=== PATIENT | female | born 1950 | race Caucasian/White ===

== ENCOUNTER 2020-12-08 09:38 | Outpatient (REF) | payer MEDICARE, SELFPAY ==
--- NOTE | 2020-12-08 10:42 | MHC.AU.HAS ---
Hearing Aid Evaluation Date of Visit: 12/08/20 Electronic Test Technician Used: Not Applicable Historical Information: Description of Hearing: Asymmetric mild to severe sensorineural hearing loss, left ear poorer than right. Significant history of left Stapedectomy and ear infections Current personal amplification information, if applicable: None Summary: Due to the long standing nature of the hearing loss and to facilitate communication, binaural hearing aids are recommended. Patient does not plan to stream her cell phone to the hearing aids. In order to reduce confusion of changing batteries, rechargeable style is recommended. Counseled about realistic expectations and the need to wear the aids every day, all day for amplification to be beneficial. Hearing Aid Prescription: Based on the individual?s shared listening needs, communication environments, dexterity, desire for connectivity, and personal preferences, the following prescription for amplification has been made: Right ear: Office Receptionist: Phonak Model: Audeo P 70-R Battery Size: Rechargeable Color: Graphite Delarosa Plaster Molder: #1 Medium Type of Dome: Open Left ear: Office Receptionist: Phonak Model: Audeo P 70-R Battery Size: Rechargeable Color: Graphite Delarosa Plaster Molder: #1 Medium Type of Dome: Open Plan of Care: Patient wishes to purchase hearing aids as prescribed Action Taken/Action Needed: Prior authorization to be requested Comments: When [facility] approval is received will order aids and call patient to schedule Hearing Aid Fitting Primary Diagnosis: H90.3 Bilateral Sensorineural Hearing Loss Signature: Provider: Precious Henry, DEENA-A
== END 2020-12-08 09:39 | disposition home or self-care (01) ==
LOC: HO.HAP 09:38
PROVIDERS: PCP Internal Medicine; Visit Provider Otolaryngology
DX: Z46.1 Encounter for fitting and adjustment of hearing aid (principal); H90.3 Sensorineural hearing loss, bilateral
CPT/HCPCS: 92591

== ENCOUNTER 2021-01-07 09:32 | Outpatient (REF) | payer MEDICARE, SELFPAY | END 2021-01-07 09:33 | disposition home or self-care (01) | LOC: HO.HAP 09:32 | PROVIDERS: Visit Provider Otolaryngology | DX: Z13.89 Encounter for screening for other disorder (principal) ==

== ENCOUNTER 2021-01-28 12:02 | Outpatient (REF) | payer MEDICARE, SELFPAY | END 2021-01-28 12:03 | disposition home or self-care (01) | LOC: HO.HAP 12:02 | PROVIDERS: Visit Provider Otolaryngology | DX: Z46.1 Encounter for fitting and adjustment of hearing aid (principal); H90.3 Sensorineural hearing loss, bilateral | CPT/HCPCS: V5011; V5020; V5160; V5261 ==

== ENCOUNTER 2024-03-26 10:51 | Outpatient (REF) | payer MEDICARE, SELFPAY ==
--- NOTE | ~2024-03-26 | XR_ITS ---
EXAMINATION: XR HIP, LEFT CLINICAL INFORMATION: Left hip pain. COMPARISON: None available. TECHNIQUE: AP and frog-leg lateral views of the left hip. FINDINGS: Prosthetic components of the left total hip arthroplasty appear appropriately positioned. A cerclage wire is present around the proximal femur in the subtrochanteric region. Thin rim of lucency near the acetabular component measures less than 2 mm and likely corresponds to fibrous incorporation. No fracture. Alignment is anatomic. 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 Bones are osteopenic. There is ossification at the soft tissues over the left greater trochanter. Atherosclerotic calcifications are present in the iliac and femoral arteries. Multiple surgical clips are present in the pelvis. XR/XR hip LT min 2V IMPRESSION: 1. No acute osseous findings at the left hip. Left hip arthroplasty appears well seated. 2. 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 Electronically signed by: Carlos Guaman MD 04/08/2024 11:46 PM EDT
== END 2024-03-26 10:52 | disposition home or self-care (01) ==
LOC: HO.HOSX 10:51
PROVIDERS: PCP Nurse Practitioner Family; Visit Provider Orthopaedic Surgery
DX: M25.552 Pain in left hip (principal); M25.551 Pain in right hip
CPT/HCPCS: 73502; 99212

== ENCOUNTER 2024-03-26 11:35 | Outpatient (AMB) | payer MEDICARE, SELFPAY ==
--- NOTE | 2024-03-26 11:36 | MHC.OFFVIS ---
Vital Signs 03/26/24 11:40 Height 5 ft Weight 130 lb BMI 25.4 Intake Visit Reasons: Bilateral hip pain Intake Note: Helena is a 73 year old female who presents with complaints of intermittent discomfort along the lateral aspects of both of her hips. The patient states that she aggravated her hip several months ago when she fell off of her counter top. The patient was trying to hang curtains at the time. She denies any locking or giving way. She did undergo left total hip replacement surgery several years ago. She denies any fevers or chills. She takes Tylenol which gives her fairly good relief. She is not able to take anti-inflammatory medicines because she is on Eliquis. Physical Exam Vital Signs: BMI result Body Mass Index 25.4 Const Other: Well-nourished well-developed very friendly female awake alert and oriented x3 in no acute distress Extrem Other: Bilateral lower extremity examination shows good capillary refill, no skin lesions noted, normal sensation light touch Left hip examination shows that the surgical incision is well healed, no erythema, mild tenderness over her bursa, minimal discomfort with range of motion Right hip examination shows tenderness over her bursa, no overlying skin lesions, minimal discomfort with range of motion Results Reviewed Results Reviewed: X-rays of the patient's right hip show mild diffuse joint space narrowing, no acute bony abnormalities X-rays of the patient's left hip show a total hip arthroplasty in good position with no signs of loosening, no acute bony abnormalities Assessment & Plan Assessment & Plan (1) Bilateral hip pain: Code(s): M25.551 - Pain in right hip; M25.552 - Pain in left hip (2) Left hip pain: Code(s): M25.552 - Pain in left hip Category: Medical (3) Right hip pain: Code(s): M25.551 - Pain in right hip Category: Medical Plan Ms. Sanchez presents with bilateral hip pains most likely due to greater trochanteric bursitis. I had a lengthy discussion with the patient regarding the treatment options. At this point the patient's symptoms are tolerable to her. We will hold off on a cortisone injection. She will contact me prior to her annual follow-up appointment should her symptoms worsen in any way. Feel free to call me at any time should questions regarding her orthopedic management arise. I spent 21 minutes in reviewing the patient's records and imaging studies, seeing the patient and documenting in the medical record. Orders: Orders XR hip LT min 2V Today M25.552 - Pain in left hip Coding Level of Care Code Est Pt Level 3 (64517) Complex EM visit Add On G2211 Diagnoses Bilateral hip pain M25.551; M25.552 Left hip pain M25.552 Right hip pain M25.551
[2024-03-26 11:40] VITALS: BMI 25.4
== END 2024-03-26 12:10 | disposition home or self-care (01) ==
PROVIDERS: PCP Internal Medicine; Visit Provider Orthopaedic Surgery
DX: M25.551 Pain in right hip (principal); M25.552 Pain in left hip
CPT/HCPCS: 99213; G2211

== ENCOUNTER 2024-10-21 10:33 | Outpatient (REF) | payer OTHER, SELFPAY ==
--- NOTE | ~2024-10-21 | XR_ITS ---
EXAMINATION: XR HIP, LEFT CLINICAL INFORMATION: M25.552 - Pain in left hip COMPARISON: 03/26/2024. TECHNIQUE: Two views of the left hip. FINDINGS: Prosthetic components of the left total hip arthroplasty appear appropriately positioned. A cerclage wire is present around the proximal femur in the subtrochanteric region. Stable thin rim of lucency abutting the superior acetabular component measures less than 2 mm and may correspond to fibrous incorporation. Mild stable heterotopic bone formation superolateral to the femoral neck prosthesis. No fracture. Alignment is anatomic. Minimal osteoarthritis in the right hip. Bones are osteopenic. Atherosclerotic calcifications are present in the iliac and femoral arteries. Multiple surgical clips are present in the pelvis. XR/XR hip LT min 2V IMPRESSION: No acute findings of the left hip/left hip prosthesis. Stable examination as discussed above. Electronically signed by: Carlos Ruff MD 10/21/2024 01:18 PM EDT
--- OUTSIDE RECORDS SUMMARY | 2024-10-22 12:03 | XMS_ITS | Encounter Summary ---
Author Organization [employer] Address [address] [facility] 7t [place] [address] Care Team Providers Care Junior Recruiter Name Role Phone Edwin Viki GORDON Primary Care Provider [phone] Constance MendezW Unavailable Unav ailable Encounter Details Date Type Department Care Team (Late st Contact Info) Description 04/09/2024 Orders Only [facility] [address] [place] [address] Viki Pineda FNP [address] [place] [address] Social History Tobacco Use Types Packs/Day Years [...] Visit [facility] MEDICAL [address] [place] [address] Myla Cisse, RESIDENTIAL INSTALLER-C [address] [place] [address] 10/29/2024 10:00 AM EDT Office Visit [facility] OPTOMETRY [address] [place] [address] Laura Napoles, OD [address] [place] [address] 11/03/2024 11:00 AM EDT Office Visit [facility] OPTOMETRY [address] [place] [address] Laura Napoles, OD [address] [place] [address] documented as of this encounter Procedures Procedure [...] documented as of this encounter Care Teams Junior Recruiter Relationship Specialty Start Date End Date Viki Pineda FNP [address] [place] [address] PCP - General Family Medicine 01/22/23 Constance Mendez LCSW Applications Consultant Behavioral Health 06/22/23 documented as of this encounter
--- OUTSIDE RECORDS SUMMARY | 2024-10-22 12:03 | XMS_ITS | Encounter Summary ---
Author Organization [employer] Address [address] [place] [address] 7t [place] [address] Care Team Providers Care Lead Software Development Engineer Name Role Phone Viki Pineda Primary Care Provider [phone] Constance Mendez LCSW Unavailable Unav ailable Reason for Visit * Reason Onset Date Comments eye issues 09/25/2024 Encounter Details Date Type Department Care Team (Late st Contact Info) Description 09/25/2024 Telephone [place] [facility] MEDICAL [address] [place] [address] Viki Pineda FNP [address] [place] [address] eye issues Social History Tobacco Use Types [...] Description 10/23/2024 11:00 AM EDT Office Visit [facility] MEDICAL [address] [place] [address] Myla Cisse, DINING ROOM SERVER-C [address] [place] [address] 10/29/2024 10:00 AM EDT Office Visit [facility] OPTOMETRY [address] [place] [address] Laura Napoles, OD [address] [place] [address] 11/03/2024 11:00 AM EDT Office Visit [facility] OPTOMETRY [address] [place] [address] Laura Napoles, OD [address] [place] [address] documented as of this encounter Visit Diagnoses Not on filedocumented in this encounter Additional Health Concerns Infection Onset Date Last Indicated Resolved Time 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
--- OUTSIDE RECORDS SUMMARY | 2024-10-22 12:03 | XMS_ITS | Encounter Summary ---
Author Organization [employer] Address [address] [facility] 7t [place] [address] Care Team Providers Care Streaming Media Specialist Name Role Phone Viki Pineda Primary Care Provider [phone] Constance MendezW Unavailable Unav ailable Encounter Details Date Type Department Care Team (Late st Contact Info) Description 05/29/2024 Orders Only [facility] [address] [place] [address] Viki Pineda FNP [address] [place] [address] Social History Tobacco Use Types Packs/Day Years [...] Description 10/23/2024 11:00 AM EDT Office Visit [facility] MEDICAL [address] [place] [address] Betito Myla, PAPER REWINDER-C [address] [place] [address] 10/29/2024 10:00 AM EDT Office Visit [facility] OPTOMETRY [address] [place] [address] Laura Napoles, OD [address] [place] [address] 11/03/2024 11:00 AM EDT Office Visit [facility] OPTOMETRY [address] [place] [address] Laura Napoles, OD [address] [place] [address] documented as of this encounter Procedures Procedure Name Priority Date/Time Associated Diagnosis Comments COMPREHENSIVE METABOLIC PANEL Routine 05/28/2024 9:[address] ABDOMEN PELVIS W CONTRAST Routine 05/28/2024 9:04 AM EST ECG 12-LEAD Routine 05/28/2024 9:03 AM EST documented in this encounter Results * Comprehensive Metabolic Panel (05/28/2024 9:05 AM EST) Blood Venous blood specimen / Unknown Viki Pineda [facility] LAB BLOOD ORDERABLES Final Resul t * CT Abdomen Pelvis w/ Contrast (05/28/2024 9:04 AM EST) Anatomical Region Laterality Modality Body, Pelvis, Abdomen Computed T omography Viki Pineda [facility] IMG CT PROCEDURES Final Result * ECG 12 lead (05/28/2024 9:03 AM EST) Viki Pineda [facility] ECG ORDERABLES Final Result documented in this encounter Visit Diagnoses Not on filedocumented in this encounter Additional Health Concerns Infection Onset Date Last Indicated Resolved Time MRSA 04/05/2024 04/09/2024 Assessment Noted Time PHQ-9 Depression Total Score: 1 01/31/20 24 2:51 PM EDT documented as of this encounter Care Teams Streaming Media Specialist Relationship Specialty Start Date End Date Viki Pineda FNP [address] [place] [address] PCP - General Family Medicine 01/22/23 Constance Mendez LCSW Head Inspector And Center Marker [facility] 06/22/23 documented as of this encounter
--- OUTSIDE RECORDS SUMMARY | 2024-10-22 12:03 | XMS_ITS | Clinical Summary ---
Author Organization [employer] Address [address] [place] [address] 7t [place] [address] Care Team Providers Care Field Superintendent Name Role Phone Viki Pineda RADIO DIRECTOR Primary Care Provider [phone] Constance Mendez BUILDING SERVICE WORKER Unavailable Unav ailable Allergies Active Allergy Reactions [...] 06/16/2022 Oxycodone-Acetaminophen 03/13/2023 Prednisone Other High 04/05/2024 [place] like my inside was going to crawl out of me Propoxyphene Anaphylaxis High 08/23/2021 Sulfamethizole High 08/23/2021 Other reaction(s): Hives/Urticaria Sulfamethoxazole-Trimethop rim 06/16/2022 Other reaction(s): paralysis Tamsulosin Low 06/16/2022 Other reaction(s): nose bleeds Tetanus Antitoxin 03/13/2019 Lrpltep-Xfsaoz-Huwud Pertussis Hives Low 06/16/2022 Other reaction(s): hives [...] tablet 3 03/07/20 24 025 Active Multiple Vitamins-Cargo Broker als (PreserVision AREDS 2+Multi Vit) capsule Take 1 capsule by mouth Once per day. 90 capsule 3 04/02/20 24 025 Active Bacillus Coagulans-Inul in (Probiotic) 1-250 BILLION-MG capsule Take 1 capsule by mouth Once per day. 90 capsule 3 04/29/20 24 025 Active mupirocin (Bactroban) 2 % ointment APPLY THIN LAYER IN NOSTRILS, BELLYBUTTON, AND BIOPSY SITE OF LEFT NONDENOMINATIONAL TWICE DAILY FOR 2 WEEKS 06/19/20 24 [...] Left message on machine asking her to burr picker and would retry her in a few minutes Retried to call pat and again just went straight to [employer]. Left another message encouraged her to call the [facility] to reschedule her missed telehealth [...] - pt will call ENT office in [place] and let us know if she needs [...] (06/26/2024): Flat, scabbed, flaky lesion to L taoist without erythema. Skin surrounding lesion is dry [...] course. Denies vision concerns. Lesion on L taoist - some green/yellow discharge. No warmth/erythema. Pt [...] (03/06/2024): Zoom therapy with Tyler here at [facility]. Rx for Klonopin - no maintenance medication. 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 Ms. Sanchez is very [...] 06/16/2022 Overview (06/26/2023): Engaged with vascular. On [facility]. Had recent vein scan, pt reports L [...] back pain and shrinking . Seen by [facility] - no surgery needed but offered [...] Type Department Care Team Description 10/14/[address] [address] Viki Pineda FNP Prior Authorization (clonazepam) 10/13/[address] [address] Tika Esparza MD Anxiety with depression 10/13/[address] [address] Viki Pineda FNP Anxiety with depression 09/25/2024 11:30 AM EDT Office Visit [facility] OPTOMETRY [address] [place] [address] Laura Napoles, LUCERO 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 degeneration of both eyes (Primary Dx); Dry eye syndrome of both eyes; Screening for diabetes mellitus 09/25/[address] [address] Viki Pineda FNP eye issues 09/15/[address] [address] Tika Esparza MD Anxiety with depression 09/15/[address] [address] Viki Pineda FNP Anxiety with depression 08/20/[address] [address] Viki Pineda FNP Med Refill 08/18/[address] [address] Viki Pineda FNP Anxiety with depression 08/08/2024 11:40 AM EST Office Visit [address] [address] Viki Pineda FNP Acute otitis externa of left ear, unspecified type (Primary Dx) 08/05/2024 [facility] [address] [place] [address] Viki Pineda, RADIO DIRECTOR Rash (Primary Dx) 07/24/2024 Telephone [place] [facility] MED[facility] [address] [place] [address] Georgia Diop, RADIO DIRECTOR Results from Last 3 Months Immunizations Name Administration Dates Next Due Hep B, adult 08/26/2007,04/10/2007,03/04/2007 Influenza, Unspecified 06/03/2013,2011,04/17/2011,2009 Pfizer Covid-19 Vaccine 12+ 08/03/2021, 1,2020 TD (adult), 2 Lf tetanus tox oid, [...] [facility] MED[facility] [address] [place] [address] Myla Cisse, EVAN-C [address] [place] [address] 10/29/2024 10:00 AM EDT Office Visit [facility] OPTOMETRY [address] [place] [address] Laura Napoles, OD [address] [place] [address] 11/03/2024 11:00 AM EDT Office Visit [facility] OPTOMETRY [address] [place] [address] Laura Napoles, OD [address] [place] [address] Health Maintenance Due Date Last Done Comments [...] history exists Depression Screening 04/02/2025 04/02/2024, 01/31/20 SDOH Screening 06/26/2025 06/26/2024 Tobacco Screening 09/25/2025 [...] nonexudative age-related macular degeneration of both eyes LIPID PANEL, STANDARD Routine 03/04/2024 8:46 AM EDT HM MAMMOGRAPHY Routine 10/27/2022 COLONOSCOPY Routine 12/26/2012 12:00 AM EDT from Last 3 Months or Most Recently Relevant to Health Maintenance Results * POCT glycosylated hemoglobin (Hgb A1c) (09/25/2024 4:10 PM EDT) Hemoglobin A1C 6.0 4.0 - 6.0 % Blood Capillary blood specimen / Unknown 09/25/2024 4:10 PM EDT Laura Napoles OD POINT OF CARE TEST ENTER/EDIT OR DERABLES Final Result * OCT, Retina - OU - Both Eyes (09/25/2024) Impressions Laura Napoles, OD - 09/25/2024 Right eye (OD): thin retinal pigment epithelium (RPE)/drusen, central lamellar/cystic changes stable, [-]CNVM Left eye (OS): thin retinal pigment epithelium (RPE)/drusen, [-]CNVM Laura Napoles OD OPHTH TOMOGRAPHY Final Result * (ABNORMAL) Lipid Panel, Standard [...] AM EDT Performed at: ??01 - [facility] [address] ??[id number] Feed Mixer Helper: Malu Gaspar MD, Phone: ??[phone] Majo Mccall NP LAB BLOOD ORDERABLES Final Resul t [facility] 1 * Hm Mammography (10/27/2022) Anatomical Region Laterality Modality Other Historical Provider HEALTH MAINTENANCE Final Result * COLONSCOPY (12/26/2012 12:00 AM EDT) Anatomical Region Laterality Modality Endoscopy 12/26/2012 Narrative 12/26/2012 12:00 AM EDT Refer to Fovea for result details Legacy Procedure: COLONSCOPY Procedure Note Provider, MD Jorge - 11/09/2022 Refer to Fovea for result details Legacy Procedure: COLONSCOPY Historical Provider ENDOSCOPY PROCEDURE ORDER TIO Final Result from Last 3 Months or Most Recently Relevant to Health Maintenance Additional Health Concerns Infection Onset Date Last Indicated MRSA 04/05/2024 04/09/2024 Insurance [facility] [employer] OPTIONS (HMO D-SNP) Advance Directives Documents on File Type Date Recorded Patient Manager Garden Expl anation HealthCare Proxy 08/13/2023 2:41 PM HCP MOLST form 08/13/2023 2:40 PM MOLST Care Teams Field Superintendent Relationship Specialty Start Date End Date Viki Pineda FNP [address] [place] [address] PCP - General Family Medicine 01/22/23 Constance Mendez LCSW Quality Assurance Inspector Behavioral Health 06/22/23
--- OUTSIDE RECORDS SUMMARY | 2024-10-22 12:03 | XMS_ITS | Encounter Summary ---
Author Organization [employer] Address 75 [facility] 7t [place] [address] Care Team Providers Care Chef French Name Role Phone Viki Pineda Primary Care Provider [phone] Constacne MendezW Unavailable Unav ailable Encounter Details Date Type Department Care Team (Late st Contact Info) Description 03/07/2024 Orders Only [facility] [address] [place] [address] Viki Pineda FNP [address] [place] [address] Social History Tobacco Use Types Packs/Day Years [...] Description 10/23/2024 11:00 AM EDT Office Visit [facility] MEDICAL [address] [place] [address] Myla Cisse FNP-C [address] [place] [address] 10/29/2024 10:00 AM EDT Office Visit [facility] OPTOMETRY [address] [place] [address] Laura Napoles, OD [address] [place] [address] 11/03/2024 11:00 AM EDT Office Visit [facility] OPTOMETRY [address] [place] [address] Laura Napoles, OD [address] [place] [address] documented as of this encounter Procedures Procedure [...] documented as of this encounter Care Teams Chef French Relationship Specialty Start Date End Date Viki Pineda FNP [address] [place] [address] PCP - General Family Medicine 01/22/23 Constance Mendez LCSW Employee Training Specialist Behavioral Health 06/22/23 documented as of this encounter
--- OUTSIDE RECORDS SUMMARY | 2024-10-22 12:03 | XMS_ITS | Encounter Summary ---
Author Organization [employer] Address [address] [place] [address] 7t [place] [address] Care Team Providers Care Rehabilitation Attendant Name Role Phone Viki Pineda Primary Care Provider [phone] Constance Mendez LCSW Unavailable Unav ailable Reason for Visit * Reason Comments Med Refill Encounter Details Date Type Department Care Team (Late st Contact Info) Description 02/12/2024 Refill [facility] MED[facility] [address] [place] [address] Viki Pineda FNP [address] [place] [address] Anxiety with depression Social History Tobacco Use [...] Description 10/23/2024 11:00 AM EDT Office Visit [address] [address] Myla Cisse FNP-C [address] [place] [address] 10/29/2024 10:00 AM EDT Office Visit [facility] OPTOMETRY [address] [place] [address] Laura Napoles, OD [address] [place] [address] 11/03/2024 11:00 AM EDT Office Visit [facility] OPTOMETRY [address] [place] [address] Laura Napoles, OD [address] [place] [address] documented as of this encounter Visit Diagnoses Diagnosis Anxiety with depression documented in this encounter Additional Health Concerns Infection Onset Date Last Indicated Resolved Time MRSA 04/05/2024 04/09/2024 Assessment Noted Time PHQ-9 Depression Total Score: 1 01/31/20 24 2:51 PM EDT documented as of this encounter Care Teams Rehabilitation Attendant Relationship Specialty Start Date End Date Viki Pineda FNP [address] [place] [address] PCP - General Family Medicine 01/22/23 Constance Mendez LCSW Genetic Technologist Behavioral Health 06/22/23 documented as of this encounter
--- OUTSIDE RECORDS SUMMARY | 2024-10-22 12:03 | XMS_ITS | Encounter Summary ---
Author Organization [employer] Address [address] [place] [address] 7t [place] [address] Care Team Providers Care Log Rider Name Role Phone Viki Pineda Primary Care Provider [phone] Constance Mendez LCSW Unavailable Unav ailable Reason for Visit * Reason Comments Med Refill Encounter Details Date Type Department Care Team (Late st Contact Info) Description 10/13/2024 Refill [facility] MEDICAL [address] [place] [address] Tika Esparza MD [address] [place] [address] Anxiety with depression Social History Tobacco Use [...] Description 10/23/2024 11:00 AM EDT Office Visit [facility] MEDICAL [address] [place] [address] Myla Cisse FNP-C [address] [place] [address] 10/29/2024 10:00 AM EDT Office Visit [facility] OPTOMETRY [address] [place] [address] Laura Napoles, OD [address] [place] [address] 11/03/2024 11:00 AM EDT Office Visit [facility] OPTOMETRY [address] [place] [address] Laura Napoles, OD [address] [place] [address] documented as of this encounter Visit Diagnoses Diagnosis Anxiety with depression documented in this encounter Additional Health Concerns Infection Onset Date Last Indicated Resolved Time MRSA 04/05/2024 04/09/2024 Assessment Noted Time PHQ-9 Depression Total Score: 1 01/31/20 24 2:51 PM EDT documented as of this encounter Care Teams Log Rider Relationship Specialty Start Date End Date Viki Pineda FNP [address] [place] [address] PCP - General Family Medicine 01/22/23 Constance Mendez LCSW [facility] 06/22/23 documented as of this encounter
--- OUTSIDE RECORDS SUMMARY | 2024-10-22 12:03 | XMS_ITS | Encounter Summary ---
Author Organization [employer] Address [address] [place] [address] 7 [place] [address] Care Team Providers Care Senior Finance Manager Name Role Phone Suzi Simmons VIDEO RECORDER MECHANIC Unavailable Unavailable Viki Pineda Primary Care Provider [phone] Constance Mendez LCSW Unavailable Unav ailable Reason for Visit * Reason Comments Med Refill Encounter Details Date Type Department Care Team (Late st Contact Info) Description 02/21/20[address] [facility] MEDICAL [address] [place] [address] Tika Esparza MD [address] [place] [address] Peripheral vascular disease, unspecified (CMS/HCC) Social History [...] Description 10/23/2024 11:00 AM EDT Office Visit [facility] MEDICAL [address] [place] [address] Myla Cisse FNP-C [address] [place] [address] 10/29/2024 10:00 AM EDT Office Visit [facility] OPTOMETRY [address] [place] [address] Laura Napoles, OD [address] [place] [address] 11/03/2024 11:00 AM EDT Office Visit [facility] OPTOMETRY [address] [place] [address] Laura Napoles, OD [address] [place] [address] documented as of this encounter Visit Diagnoses Diagnosis Peripheral vascular disease, unspecified (CMS/HCC) Peripheral vascular disease, unspecified documented in this encounter Additional Health Concerns Infection Onset Date Last Indicated Resolved Time MRSA 04/05/2024 04/09/2024 Assessment Noted Time PHQ-9 Depression Total Score: 5 02/17/20 23 7:33 AM EDT documented as of this encounter Care Teams Senior Finance Manager Relationship Specialty Start Date End Date Viki Pineda FNP [address] [place] [address] PCP - General Family Medicine 01/22/23 Suzi Simmons LICSW Head Kiln Operator Behavioral Health 06/23/22 07/22/23 Constance Mendez LCSW Head Kiln Operator Behavioral Health 06/22/23 documented as of this encounter
--- OUTSIDE RECORDS SUMMARY | 2024-10-22 12:03 | XMS_ITS | Encounter Summary ---
Author Organization [employer] Address [address] [place] [address] 7t [place] [address] Care Team Providers Care Recreation Engineer Name Role Phone Suzi FUEL CELL BINDER Unavailable Unavailable Tika Esparza MD Primary Care Provider [phone] Viki Pineda Primary Care Provider [phone] Constance Mendez LCSW Unavailable Unav ailable Encounter Details Date Type Department Care Team (Late st Contact Info) Description 11/28/2022 Orders Only [facility] MEDICAL [address] [place] [address] Provider, MD Jorge Social History Tobacco Use [...] 10/23/2024 11:00 AM EDT Office Visit [facility] MEDICAL [address] [place] [address] Myla Cisse FNP-Alonzo [address] [place] [address] 10/29/2024 10:00 AM EDT Office Visit [facility] OPTOMETRY [address] [place] [address] Laura Napoles, OD [address] [place] [address] 11/03/2024 11:00 AM EDT Office Visit [facility] OPTOMETRY [address] [place] [address] Laura Napoles, OD [address] [place] [address] documented as of this encounter Procedures Procedure [...] documented as of this encounter Care Teams Recreation Engineer Relationship Specialty Start Date End Date Tika Esparza MD [address] [place] [address] PCP - General Internal Medicine 08/15/22 01/21/23 Viki Pineda FNP [address] [place] [address] PCP - General Family Medicine 01/22/23 Suzi Simmons LICSW [facility] 06/23/22 07/22/23 Constance Mendez LCSW [facility] 06/22/23 documented as of this encounter
--- OUTSIDE RECORDS SUMMARY | 2024-10-22 12:03 | XMS_ITS | Data Portability ---
Author Organization [place] [facility] [place] Address [address] [facility] [address] [place] [address] Care Team Providers Care Cosmetic Chemist Name Role Phone EL NEWELL Referring Provider [phone] EL NEWELL Primary Care Provider Assessment Encounter Date Assessment Date Assessment LastModified by Organization Details LastModified Time 08/09/2023 08/09/2023 72-year-old female following up on her left total hip arthroplasty performed by Dr. Navarro on 06/03/2021. Clinically her hip is doing well she does have some mild iliotibial band tenderness we talked about therapy as well as a home stretching exercise program which she was amenable to the program at home she does admit she has not been stretching at all. She has a tonsillitis and therefore does not need antibiotic prophylaxis and she has been on the 2 years from her surgery. Will do a 5-year recall should her symptoms not improved she will call my office and we will schedule her to see a provider. I did review her radiographs with her in detail she agrees with above-noted plan. Patient was seen and evaluated by Cosme Gutierrez PA-C in indirect conjuction with Documenting Provider: Brady Sabillon MD . He/She agrees with history, physical examination, tests/diagnostic imaging, and treatment plan. Additional treatment plan discussed with the patient (only initiated if in boldface font) otherwise not applicable. Treatment may include the following; - Provider focused nonsteroidal anti-inflammator y regimen (discussed were the pros, cons, benefits and risks as well as any black box warnings) in patients over 60 years old they should be very cautious in taking these medications due to potential decreased kidney function and or elevated blood pressure. - Analgesic pain medication for pain suppression (discussed were the pros, cons, benefits and risks as well as any black box warnings) - The use of topical pain relieving medication were discussed - The use of ice to decrease inflammation and pain - The use of assistive ambulatory devices for ambulation and fall prevention - Formal specific guided physical therapy program I reviewed my findings at length with the patient today. ? ? ?We discussed the nature and etiology of this problem along with current treatment options. We discussed the expected course and outcomes and what to expect. We also discussed risks and benefits. ? ? ? All of their questions were answered today, and there was exhibited understanding and comprehension of all that was discussed. Time Spent: 10 minutes were spent reviewing previous imaging and charting. ? ? ?10 minutes were spent obtaining patient history. ? ? ?5 minutes were spent on physical exam. ? ? ?5? ? ?minutes were spent explaining diagnosis and assessment. Today's documentation was made using voice recognition software. This note may contain grammatical errors secondary to the software. Not available 08/09/2023 14:06:50 Plan of Treatment Reminders Order Date Submit Date Provider Last Modified By Organization Details Last Modified Time Details Appointments None record ed. Lab None record ed. Referral None record ed. Procedures None record ed. Surgeries None record ed. Imaging XR, hip, unilat eral, 2 or 3 view 024 08/09/19 24 [email or web address] [facility], [address], [address], [place], [address], 4 14:07:39 Medication Orders None record ed. Patient TargetsNo targets recorded. Patient Instructions Encounter Date Encounter Id Patient Instructions Last Modified By Organization Details Last Modified Time 08/09/2023 [id number] Well-seated well-positioned left total hip arthroplasty without sign of loosening. No acute bony abnormality. Not available 08/09/2023 14:07:06 Reason for Referral None Reported. Medical Equipment None Reported. Allergies No known drug allergies Medications Name Sig Start Date Stop Date Status Note LastModified by Organization Details LastModified Time clonazepam 0.5 mg tablet TAKE 1 TABLET BY MOUTH 3 TIMES A DAY 28 DAYS active Not Available Not Available No t Available betamethason e, augmented 0.05 % topical cream PLEASE SEE ATTACHED FOR DETAILED DIRECTIONS active Not Available Not Available N ot Available amlodipine 5 mg tablet TAKE 1 TABLET BY MOUTH EVERY DAY IN THE MORNING active Not Available Not Available No t Available TobraDex 0.3 %-0.1 % eye ointment APPLY 1/2 INCH RIBBON TO BOTH EYES TWO TIMES A DAY FOR UP TO 10 DAYS active Not Available Not Available No t Available lisinopril 10 mg tablet TAKE 1 TABLET BY MOUTH EVERY DAY IN THE MORNING active Not Available Not Available No t Available gabapentin 300 mg capsule TAKE 1 CAPSULE BY MOUTH EVERYDAY AT BEDTIME active Not Available Not Available No t Available gabapentin 100 mg capsule PLEASE SEE ATTACHED FOR DETAILED DIRECTIONS active Not Available Not Available N ot Available ketoconazole 2 % topical cream APPLY TO AFFECTED AREA TWICE A DAY active Not Available Not Available No t Available loratadine 10 mg tablet TAKE 1 TABLET BY MOUTH EVERY DAY active Not Available Not Available No t Available nicotine 7 mg/24 hr daily transdermal patch APPLY 1 PATCH TO SKIN EVERY DAY active Not Available Not Available [...] Not Available Not Available No t Available Salonpas (lidocaine) 4 % topical patch PLEASE SEE ATTACHED FOR DETAILED DIRECTIONS active Not Available Not Available N ot Available Vitals Date Recorded Body height Body mass index (BMI) Body weight Provider Name and Address Organization Details Last Updated DateTime 08/09/2023 157.48 cm 23.6 kg/m2 67588.42 g [place] [facility] 08/09/2023 14:09:43 Social History Question Answer Notes LastModified by Organizat ion Details LastModified Time Tobacco Smoking Status Former Smoker Poly Ambriz mat[place], [place] - [facility] 08/09/2023 14:11:41 What Is Your Level Of Alcohol Consumption? None Information not available 08/09/2023 When Did You Quit Smoking? 1-5yearssin erika daly Information not available 08/09/2023 Do You Use Any Illicit Or Recreational Drugs? No Information not available 08/09/2023 Do You Or Have You Ever Used Any Other Forms Of Tobacco Or Nicotine? No Information not available 08/09/2023 Sex: Unknown Functional Status None recorded. Mental Status None recorded. Family History Relationship Description Onset Age of this Age Resolved Age Notes LastModified by Organization Details LastModified Time Mother Arthritis Not available 08/09/2023 14:10:12 Mother Heart disease [email or web address] Not available 2023 14:10:49 Mother Hypertensive disorder [email or web address] Not available 2023 14:11:06 Father Family history of malignant neoplasm [email or web address] Not available 2023 14:10:29 Father Heart disease [email or web address] Not available 2023 14:10:49 Father Hypertensive disorder [email or web address] Not available 2023 14:11:06 Brother Family history of malignant neoplasm Not available 2023 14:10:29 Sister Heart disease [email or web address] Not available 2023 14:10:49 Medical History Condition Response Bleeding Disorder Y Thyroid Problems Y Heart Disease Y Hypertension Y Gynecological HistoryNo gynecological history recorded. Obstetrics History GPAL:G 0 P 0 0 0 0 Past Encounters Encounter ID Performer Location Encounter Start Date Encounter Closed Date Diagnosis/Indication Diagnosis SNOMED-CT Code Diagnosis ICD10 Code Diagnosis Note [id number] MD JAIME Montero [address] [id number] 08/09/2023 13:12:20 08/09/2023 13:50:23 History of total replacement of left hip joint 7410939357 445590 Z96.642 Health Concerns Section Related Observation LastModified by Organization Detai ls LastModified Time None Recorded Concern Status LastModified by Organization Details LastModified Time None Recorded Advance Directives Directive None Recorded Payers Encounter Date Sequence Insurance Name Policy Number Policy Graham Covered Member ID Graham Member ID Guarantor Name 08/09/2023 1 [facility] - DOS ON OR AFTER 2022 - MEDICARE ADVANTAGE [place] (MEDICARE REPLACEMENT/ADV ANTAGE - PPO) December Daniel [id number] December Notes Date Note Type Note Provider Name and Address Organization Details Recorded Time 08/09/2023 text/html 72-year-old fema le following up on her left total hip arthroplasty performed by Dr. Navarro on 06/03/2021. She is denying any groin pain she states she has outside pain on the outside of her left leg that gets worse with walking. She does have vascular disease for which she sees a vascular specialist here at [facility]. She is currently being worked up for her back by her primary care. X-rays performed at today's visit reveals well-seated well-positioned left total hip arthroplasty without sign of loosening. No acute bony abnormality. COSME GUTIERREZ PA-C [address] [place] [address], [place], [address], [place] [facility] 08/09/2023 14:07:33 OBGyn Episode No OBEpisode recorded.
--- OUTSIDE RECORDS SUMMARY | 2024-10-22 12:03 | XMS_ITS | Clinical Summary ---
Author Organization [facility] Address [address] [place] [address] Care Team Providers Care Materials Management Clerk Name Role Phone Tika Esparza MD Primary Care Provider [phone] Allergies Active Allergy Reactions Criticality Noted Date [...] age to complete this topic Care Teams Materials Management Clerk Relationship Specialty Start Date End Date Tika Esparza MD [address] [place] [address] PCP - General Internal Medicine 03/13/19
--- OUTSIDE RECORDS SUMMARY | 2024-10-22 12:03 | XMS_ITS | Encounter Summary ---
Author Organization [employer] Address [address] [facility] 7t [place] [address] Care Team Providers Care Solidworks Mechanical Designer Name Role Phone Viki Pineda FERN GATHERER Primary Care Provider [phone] Constance Mendez LCSW Unavailable Unav ailable Reason for Visit * Reason Onset Date Comments prednisone, starting new med 02/14/2024 Encounter Details Date Type Department Care Team (Late st Contact Info) Description 02/14/2024 Telephone [facility] [facility] MED[facility] [address] [place] [address] Anneliese Tapia RN prednisone, starting new med [...] the past 12 months, has t he [employer], gas, oil or water [employer] threatened to shut off services in your [...] Description 10/23/2024 11:00 AM EDT Office Visit [facility] MEDICAL [address] [place] [address] Myla Cisse FNP-C [address] [place] [address] 10/29/2024 10:00 AM EDT Office Visit [facility] OPTOMETRY [address] [place] [address] Laura Napoles, OD [address] [place] [address] 11/03/2024 11:00 AM EDT Office Visit [facility] OPTOMETRY [address] [place] [address] Laura Napoles, OD [address] [place] [address] documented as of this encounter Visit Diagnoses Not on filedocumented in this encounter Additional Health Concerns Infection Onset Date Last Indicated Resolved Time 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
--- OUTSIDE RECORDS SUMMARY | 2024-10-22 12:04 | XMS_ITS | Encounter Summary ---
Author Organization [employer] Address [address] [place] [address] 7t [place] [address] Care Team Providers Care Emergency Dispatch Operator Name Role Phone Edwin Viki GORDON Primary Care Provider [phone] Constance MendezW Unavailable Unav ailable Encounter Details Date Type Department Care Team (Late st Contact Info) Description 12/31/2023 Orders Only [facility] [address] [place] [address] Viki Pineda FNP [address] [place] [address] Social History Tobacco Use Types Packs/Day Years [...] Description 10/23/2024 11:00 AM EDT Office Visit [place] [facility] MEDICAL [address] [place] [address] Myla Cisse FNP-C [address] [place] [address] 10/29/2024 10:00 AM EDT Office Visit [facility] OPTOMETRY [address] [place] [address] Laura Napoles, OD [address] [place] [address] 11/03/2024 11:00 AM EDT Office Visit [facility] OPTOMETRY [address] [place] [address] Laura Napoles, OD [address] [place] [address] documented as of this encounter Procedures Procedure [...] Spine, C-spine Computed Tomogra phy Viki Pineda [facility] CT PROCEDURES Final Result * CT HEAD WO CONTRAST (12/29/2023 11:00 AM EDT) Anatomical Region Laterality Modality Computed Tomogra phy Viki Pineda [facility] CT PROCEDURES Final Result * XR Toes 2+ Left (12/29/2023 10:59 AM EDT) Anatomical Region Laterality Modality Lower Extremities, Toes Left Radiogra phic Imaging Viki Pineda [facility] XR PROCEDURES Final Result documented in this encounter Visit Diagnoses Not on filedocumented in this encounter Additional Health Concerns Infection Onset Date Last Indicated Resolved Time 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
--- OUTSIDE RECORDS SUMMARY | 2024-10-22 12:04 | XMS_ITS | Clinical Summary ---
Author Organization [address] [place] [address] Address [address] [place] [address] Phone Care Team Providers Care Research Assoc Name Role Phone Tika Esparza MD Primary Care Provider [phone] Allergies Active Allergy Reactions Criticality Noted Date [...] Site/Laterality Comments OTHER SURGICAL HISTORY 08/16/2021 PROCEDURE: IL TRLML BALO ANGIOP OPEN/PERQ W/IMG S&I 1ST VEIN OTHER SURGICAL HISTORY 08/16/2021 PROCEDURE: IL TRLML BALO ANGIOP OPEN/PERQ W/IMG S&I ADDL VEIN; COMMENT: x2 OTHER SURGICAL HISTORY 08/16/2021 PROCEDURE: IL SEC PRQ TRLUML THRMBC N-CORONARY N-INTRACRANIAL OTHER SURGICAL HISTORY 08/16/2021 PROCEDURE: IL INTRAVASCULAR US NONCORONARY RS&I INTIAL VESSEL OTHER SURGICAL HISTORY 08/16/2021 PROCEDURE: IL INTRAVASCULAR US NONCORONARY RS&I ADDL VESSEL; COMMENT: x4 OTHER SURGICAL HISTORY 08/16/2021 PROCEDURE: ULTRASOUND GUIDANCE FOR VASCULAR AC OTHER SURGICAL HISTORY 05/09/2022 PROCEDURE: IL NJX PX XTR VNGRPH W/INTRO NDL/INTRACATH OTHER [...] PM EST Office Visit [facility] [place] [address] [place] [address] Sanam Urena PA [address] [facility] [address] [place] [address] Health Maintenance Due Date Last Done Comments [...] patient's age to complete this topic Insurance [facility] MEDICARE Member Subscriber Plan / Payer (Ef fective 2020-Present) Name:Helena Sanchez Relation to Subscriber:Self Name:Helena Sanchez Payer ID:[id number] Group ID:[id number] Type:Not on file Address: [address] [place] [phone] Advance Directives Documents on File Type Date Recorded Patient Supplier Quality Specialist Expl anation Health Care Decision (hx) 06/03/2021 [...] (hx) 06/03/2021 AD XAVIER DIRECTIVE Care Teams Research Assoc Relationship Specialty Start Date End Date Tika Esparza MD [address] [place] [address] PCP - General Internal Medicine 06/16/21
--- OUTSIDE RECORDS SUMMARY | 2024-10-22 12:04 | XMS_ITS | Encounter Summary ---
Author Organization [employer] Address [address] [place] [address] 7t [place] [address] Care Team Providers Care Rotary Driller Helper Name Role Phone Viki Pineda Primary Care Provider [phone] Constance Mendez LCSW Unavailable Unav ailable Reason for Visit * Reason Onset Date Comments Med Refill 11/27/2023 Encounter Details Date Type Department Care Team (Late st Contact Info) Description 11/27/2023 Telephone [place] [facility] MEDICAL [address] [place] [address] Viki Pineda FNP [address] [place] [address] Med Refill Social History Tobacco Use Types [...] med refill gabapentin (Neurontin) 300 MG capsule [[id number]] clonazePAM (KlonoPIN) 0.5 MG tablet [[id number]] Pharmacy [facility]/pharmacy #[id number] [facility] [id number] documented in this encounter Plan of Treatment Upcoming Encounters Date Type Department Care Team (Late st Contact Info) Description 10/23/2024 11:00 AM EDT Office Visit [facility] MEDICAL [address] [place] [address] Myla Cisse FNP-C [address] [place] [address] 10/29/2024 10:00 AM EDT Office Visit [facility] OPTOMETRY [address] [place] [address] Laura Napoles, OD [address] [place] [address] 11/03/2024 11:00 AM EDT Office Visit [facility] OPTOMETRY [address] [place] [address] Laura Napoles, OD [address] [place] [address] documented as of this encounter Visit Diagnoses Not on filedocumented in this encounter Additional Health Concerns Infection Onset Date Last Indicated Resolved Time 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
== END 2024-10-21 10:34 | disposition home or self-care (01) ==
LOC: HO.HOSX 10:33
PROVIDERS: Visit Provider Orthopaedic Surgery
DX: M25.552 Pain in left hip (principal); M54.50 Low back pain, unspecified; M79.605 Pain in left leg
CPT/HCPCS: 73502; 99212

== ENCOUNTER 2024-10-21 11:05 | Outpatient (AMB) | payer MEDICARE, SELFPAY ==
--- NOTE | 2024-10-21 11:14 | A.OFFVIS_ITS ---
Vital Signs 10/21/24 11:16 Height 5 ft Weight 130 lb BMI 25.4 Intake Visit Reasons: OV-Left Hip pain, Low back pain radiating to left leg Intake Note: Helena is a 73 year old female who presents with complaints of progressively worsening low back pain which radiates down her left leg as well as intermittent discomfort along the lateral aspect of her left hip. She did undergo left total hip replacement surgery several years ago. She denies any fevers or chills. The patient states that her back pain has gotten worse over the last few years in spite of continued non operative treatments. The patient states that she did have an MRI of her lumbar spine several years ago. She was seen by a back specialist and she was told that although she has significant lumbar spine pathology she was not a good surgical candidate at that time. The patient has tried Tylenol which gives her minimal relief. She is not able to take anti- inflammatory medicines because she is on Eliquis. Allergies No Known Allergies Allergy (Verified 10/21/24 11:17) Medication List - Last Reconciled 10/21/24 by Jw Navarro MD apixaban (Eliquis) 5 mg PO BID clonazepam mg PO loratadine 10 mg PO DAILY az-vmr-DY-vit L-wjqvue-wxbosfr 200 mcg-15 mcg- 5 mg-1 mg (PreserVision AREDS 2 Plus Multivit) 1 cap PO DAILY Physical Exam Vital Signs: BMI result Body Mass Index 25.4 Const Other: Well-nourished well-developed very friendly female awake alert and oriented x3 in no acute distress Back/Spine/Pelvis Other: Low back examination shows left-sided paraspinal muscle tenderness, pain with range of motion, positive straight leg raise test on the left at 70 degrees, 4/5 strength with testing of her left hip flexors and knee extensors when compared to 5/5 strength on her right side Extrem Other: Left hip examination shows that the surgical incision is well healed, no erythema, minimal discomfort with range of motion, mild tenderness over her bursa Results Reviewed Results Reviewed: X-rays of the patient's left hip show a total hip arthroplasty in good position with no signs of loosening, a small avulsion fracture of the tip of the greater trochanter which is unchanged when compared to prior x-rays Assessment & Plan Assessment & Plan (1) Low back pain radiating to left leg: Code(s): M54.50 - Low back pain, unspecified; M79.605 - Pain in left leg Category: Medical Plan Ms. Sanchez presents with low back pain which radiates into her left leg as well as associated left leg weakness possibly due to lumbar stenosis or a disc herniation. Thus, I will send the patient for an MRI of her lumbar spine for further evaluation. I will see her back once the MRI is completed to discuss the findings. She will call me prior to that time should her symptoms worsen in any way. Feel free to call me at any time should questions regarding her orthopedic management arise. I spent 22 minutes in reviewing the patient's records and imaging studies, seeing the patient and documenting in the medical record. Orders: Orders MR lumbar spine wo con Today M54.50 - Low back pain, unspecified, M79.605 - Pain in left leg XR hip LT min 2V Today M25.552 - Pain in left hip Coding Level of Care Code Est Pt Level 3 (34876) Complex EM visit Add On G2211 Diagnoses Low back pain radiating to left leg M54.50; M79.605
[2024-10-21 11:16] VITALS: BMI 25.4
--- OUTSIDE RECORDS SUMMARY | 2024-10-21 13:31 | XMS_ITS | Encounter Summary ---
Author Organization [employer] Address [address] [place] [address] Care Team Providers Care Crystallographer Name Role Phone Viki Pineda CEREAL MILLER Primary Care Provider [phone] Constance Mendez LCSW Unavailable Unav ailable Reason for Visit * Reason Onset Date Comments prednisone, starting new med 02/14/2024 Encounter Details Date Type Department Care Team (Late st Contact Info) Description 02/14/2024 Telephone [facility] [address] [place] [address] Anneliese Tapia RN prednisone, starting new med Social History Tobacco Use Types Packs/Day Years Used Date Smoking Tobacco: Former Cigarettes 2 60 1 961 - 2020 Passive Smoke Exposure: Past Smokeless Tobacco: Never Alcohol Use Standard Drinks/Week Comments Never 0 (1 standard drink = 0.6 oz pur e alcohol) Alcohol Answer Date Recorded How often do you have a drink containing alcohol ? 0 09/26/2023 How many drinks containing a lcohol do you have on a typical day when you are drinking? 0 09/26/2023 How often do you have six or more drinks on one occasion? 0 09/26/2023 Depression Answer Date Recorded Patient Health Questionnaire-9 Score 1 01/31/2024 Patient Health Questionnaire-9 Score 1 01/31/2024 Last PHQ-9: Questionnaire Data Not on file 0 01/31/2024 Housing Stability Answer Date Recorded What is your housing situation today? I have jigna purcell 05/01/[address] you li ve. Do you have problems with any of the following? None of the above 05/01/2023 Food Insecurity Answer Date Recorded Within the past 12 months, y ou worried that your food would run out before you got money to buy more: Never True 05/01/2023 Within the past 12 months,th e food you bought just didn't last and you didn't have enough money to get more: Never True Transportation Answer Date Recorded In the past 12 months, has l ack of transportation kept you from medical appts, meetings, work or from getting things needed for daily living? No 05/01/2023 Intimate Partner Violence Answer Date R ecorded Within the last year, have y ou been afraid of your partner or ex-partner? 2 09/26/2023 Within the last year, have y ou been humiliated or emotionally abused in other ways by your partner or ex-partner? 2 Within the last year, have y ou been kicked, hit, slapped, or otherwise physically hurt by your partner or ex-partner? 2 09/26/2023 Within the last year, have y ou been raped or forced to have any kind of sexual activity by your partner or ex-partner? 2 09/26/2023 Utilities Answer Date Recorded In the past 12 months, has t he [employer] gas, oil or water [employer] threatened to shut off services in your home? No 05/01/2023 Depression Answer Date Recorded Patient Health Questionnaire-2 Score 0 01/31/2024 Education Answer Date Recorded What is the highest level of school you have completed or the highest degree you have received? 11th grade 09/26/2023 Comments Unknown Sex and Gender Information Value Date Recorded Sex Assigned at Female 06/21/2022 2:24 PM EST Legal Sex Female 8:34 PM EDT Gender Identity Female 06/21/2022 2:24 PM EST Sexual Orientation Straight 06/21/2022 2: 24 PM EST Occupation Industry Job Start Date Job End Date Disablitiy Not on file Not on file Not on file documented as of this encounter Miscellaneous Notes * Telephone Encounter - Yadi Baca RN - 02/19/2024 12:56 PM EDT Spoke to pt, states decided to wait until she is off prednisone and valtrex and will discuss at OV 02/21/24 before starting Seroquel. Pt reports one inch open area to side of face from popped blister. Advised pt to wash off using gauze with warm water, apply neosporin band aide and change daily or asneeded. Advised to be sure anyone who has not had chickenpox vaccine to keep away from drainage/soiled dressings. Pt understood. To [facility]GR[facility] BERNAL for appt 02/21/24. * Telephone Encounter - Yadi Baca RN - 02/19/2024 12:56 PM EDT E to pt, states at this point she is going to wait fo her appointment 02/21/24 w/ * Telephone Encounter - Yadi Baca RN - 02/19/2024 10:58 AM EDT This note to Viki Pineda please advise on starting seroquel should she wait until off prednisone and valtrex * Telephone Encounter - Nydia Mccall RN - 02/14/2024 3:00 PM EDT Was able to add on to previous conversation- Closing this TE Last OV note discusses pt reducing gabapentin and starting seroquel. I think she is asking if its ok to start seroquel or should she wait til she is done with prednisone. * Telephone Encounter - Anneliese Tapia RN - 02/14/2024 2:01 PM EDT Unable to document in previous TE due to Epic problem. Told pt to take 2 tabs pred daily instead of trhee and finish all pred. Do light activity, housework to try to ameliorate restlessness. TE back to PCP to answer previous question: Pt further states that she is supposed to stop gabapentin and start seroquel at [facility] while she is still on antiviral tx. Wants to know if she can continue current regimen until she is done with radha andpred. I am leaving for the day so be sure to send to triage, not me. Thank you. documented in this encounter Plan of Treatment Upcoming Encounters Date Type Department Care Team (Late st Contact Info) Description 10/23/2024 11:00 AM EDT Office Visit [facility] MEDICAL [address] [place] [address] Myla Cisse FNP-C [address] [place] [address] 10/29/2024 10:00 AM EDT Office Visit [facility] OPTOMETRY [address] [place] [address] Laura Napoles, OD [address] [place] [address] 11/03/2024 11:00 AM EDT Office Visit [facility] OPTOMETRY [address] [place] [address] Laura Napoles, OD [address] [place] [address] documented as of this encounter Visit Diagnoses Not on filedocumented in this encounter Additional Health Concerns Infection Onset Date Last Indicated Resolved Time 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
--- OUTSIDE RECORDS SUMMARY | 2024-10-21 13:31 | XMS_ITS | Encounter Summary ---
Author Organization [employer] Address [address] [place] [address] [address] [place] [address] Care Team Providers Care Culinary Internship Name Role Phone Viki Pineda Primary Care Provider [phone] Constance Mendez LCSW Unavailable Unav ailable Reason for Visit * Reason Comments Med Refill Encounter Details Date Type Department Care Team (Late st Contact Info) Description 02/12/2024 Refill [facility] [address] [place] [address] Viki Pineda FNP [address] [place] [address] Anxiety with depression Social History Tobacco Use Types Packs/Day Years [...] the past 12 months, has t he electric, gas, oil or water company threatened to shut off services in your [...] on file documented as of this encounter Plan of Treatment Upcoming Encounters Date Type Department Care Team (Late st Contact Info) Description 10/23/2024 11:00 AM EDT Office Visit [address] [address] Myla Cisse FNP-C [address] [place] [address] 10/29/2024 10:00 AM EDT Office Visit [facility] OPTOMETRY [address] [place] [address] Laura Napoles, OD [address] [place] [address] 11/03/2024 11:00 AM EDT Office Visit [facility] OPTOMETRY [address] [place] [address] Laura Napoles, OD [address] [place] [address] documented as of this encounter Visit Diagnoses Diagnosis Anxiety with depression documented in this encounter Additional Health Concerns Infection Onset Date Last Indicated Resolved Time 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
--- OUTSIDE RECORDS SUMMARY | 2024-10-21 13:31 | XMS_ITS | Encounter Summary ---
Author Organization [employer] Address [address] [facility] [address] [place] [address] Care Team Providers Care Electrophysiology Scientist Name Role Phone Viki Pineda Primary Care Provider [phone] Constance MendezW Unavailable Unav ailable Encounter Details Date Type Department Care Team (Late st Contact Info) Description 05/29/2024 Orders Only [facility] [address] [place] [address] Viki Pineda FNP [address] [place] [address] Social History Tobacco Use Types Packs/Day Years Used Date Smoking Tobacco: Former Cigarettes 2 60 1 961 - 202 Passive Smoke Exposure: Past Smokeless Tobacco: Never [...] Date Recorded Patient Health Questionnaire-2 Score 0 04/02/2024 Internet Access Answer Date Recorded Internet Access Q1 Yes 04/05/2024 Internet Access Q2 I do not want or need it 03/17 Education Answer Date Recorded What is the highest level of school you have completed or the highest degree you have received? 11th grade 09/26/2023 Comments No Sex and Gender Information Value Date Recorded [...] Description 10/23/2024 11:00 AM EDT Office Visit [facility] MEDICAL [address] [place] [address] Betito Myla, PACKAGE WINDER-C [address] [place] [address] 10/29/2024 10:00 AM EDT Office Visit [facility] OPTOMETRY [address] [place] [address] Laura Napoles, OD [address] [place] [address] 11/03/2024 11:00 AM EDT Office Visit [facility] OPTOMETRY [address] [place] [address] Laura Napoles, OD [address] [place] [address] documented as of this encounter Procedures Procedure Name Priority Date/Time Associated Diagnosis Comments COMPREHENSIVE METABOLIC PANEL Routine 05/28/2024 9:[address] ABDOMEN PELVIS W CONTRAST Routine 05/28/2024 9:04 AM EST ECG 12-LEAD Routine 05/28/2024 9:03 AM EST documented in this encounter Results * Comprehensive Metabolic Panel (05/28/2024 9:05 AM EST) Blood Venous blood specimen / Unknown Viki Pineda [facility] BLOOD ORDERABLES Final Resul t * CT Abdomen Pelvis w/ Contrast (05/28/2024 9:04 AM EST) Anatomical Region Laterality Modality Body, Pelvis, Abdomen Computed T omography Viki Pineda [facility] IMG CT PROCEDURES Final Result * ECG 12 lead (05/28/2024 9:03 AM EST) Viik Pineda 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
--- OUTSIDE RECORDS SUMMARY | 2024-10-21 13:31 | XMS_ITS | Clinical Summary ---
Author Organization [employer] Address [address] [place] [address] [address] [place] [address] Care Team Providers Care Icer Hand Name Role Phone Viki Pineda STATION CAPTAIN Primary Care Provider [phone] Constance Mendez COPY PREPARER Unavailable Unav ailable Allergies Active Allergy Reactions Criticality Noted Date Comments Acetaminophen Anaphylaxis High 08/23/2021 Amlodipine Other Low 02/21/2023 Shaking. Amoxicillin Diarrhea Low 06/16/2022 Other reaction(s): diarrhea Buspirone 06/16/2022 Other reaction(s): Unknown Codeine Anaphylaxis High 08/23/2021 Cyclobenzaprine 06/16/2022 Other reaction(s): Unknown Doxycycline Diarrhea Low 06/16/2022 Other reaction(s): diarrhea Levofloxacin 06/16/2022 Other reaction(s): Unknown Lisinopril Other Low 02/21/2023 Shaking Naproxen Low 06/16/2022 Other reaction(s): GI upset Oxycodone 06/16/2022 Other reaction(s): GI upset Penicillin G Rash Low 06/16/2022 Oxycodone-Acetaminophen 03/13/2023 Prednisone Other High 04/05/2024 Higbee like my inside was going to crawl out of me Propoxyphene Anaphylaxis High 08/23/2021 Sulfamethizole High 08/23/2021 Other reaction(s): Hives/Urticaria Sulfamethoxazole-Trimethop rim 06/16/2022 Other reaction(s): paralysis Tamsulosin Low 06/16/2022 Other reaction(s): nose bleeds Tetanus Antitoxin 03/13/2019 Njyvedo-Hvzhvh-Cxdmy Pertussis Hives Low 06/16/2022 Other reaction(s): hives Tetanus-Diphtheria Toxoids Td Rash Low 08/23/2021 Other reaction(s): Rash/Dermatitis Tramadol Nausea,Vomiting Low 06/16/2022 Other reaction(s): nv Trimethoprim High 08/23/2021 Other reaction(s): Hives/Urticaria Medications * This document contains information received from the source organization and may not represent a complete record from that organization. albuterol 108 (90 Base) MCG/ACT inhaler 2 puffs. PRN 02/16/20 15 Active betamethasone, augmented, (Diprolene AF) 0.05 % cream PLEASE SEE ATTACHED FOR DETAILED DIRECTIONS 04/03/20 23 Active loratadine (Claritin) 10 MG tabletIndicati ons:Allergic rhinitis, unspecified seasonality, unspecified trigger TAKE 1 TABLET BY MOUTH EVERY DAY 90 tablet 4 09/14/19 24 Active barium sulfate (Readi-Cat 2) 2 % suspension TAKE 450 ML BY MOUTH 2 TIMES DAILY FOR 2 DOSES. Active apixaban (Eliquis) 5 MG tabletIndicati ons:Personal history of other venous thrombosis and embolism Take 1 tablet (5 mg) by mouth 2 times daily. 180 tablet 3 03/07/20 24 025 Active Multiple Vitamins-Plastic Parts Fabricator Trimmer als (PreserVision AREDS 2+Multi Vit) capsule Take 1 capsule by mouth Once per day. 90 capsule 3 04/02/20 24 025 Active Bacillus Coagulans-Inul in (Probiotic) 1-250 BILLION-MG capsule Take 1 capsule by mouth Once per day. 90 capsule 3 04/29/20 24 025 Active mupirocin (Bactroban) 2 % ointment APPLY THIN LAYER IN NOSTRILS, BELLYBUTTON, AND BIOPSY SITE OF LEFT DENOMINATIONAL TWICE DAILY FOR 2 WEEKS 06/19/20 24 Active ketoconazole (NIZOral) 2 % creamIndicatio ns:Rash Apply topically 2 times daily. to affected area 30 g 2 08/05/19 25 Active clonazePAM (KlonoPIN) 0.5 MG tabletIndicati ons:Anxiety with depression Take 1 tablet (0.5 mg) by mouth 2 times daily. 56 tablet 1 10/14/19 25 025 Active neomycin-polym yxin-dexAMETHa sone 0.1 % ointment APPLY TO BOTH EYELIDS ONCE PER DAY NEEDED. 025 Discontinued(Th erapy completed) clonazePAM (KlonoPIN) 0.5 MG tabletIndicati ons:Anxiety with depression Take 1 tablet (0.5 mg) by mouth 2 times daily for 28 days. 56 tablet 09/16/19 25 025 Discontinued(Re order (will not trigger notification to Pharmacy)) Active Problems Patient Care Coordination No te Formatting of this note migh t be different from the original. Pt was no show for her scheduled 5 p.m. telehealth appt this evening. Left message on machine asking her to belt picker and would retry her in a few minutes Retried to call pat and again just went straight to voiceThe [facility]. Left another message encouraged her to call the [facility] to reschedule her missed telehealth appointment this evening to discuss lab results. See message in chart from PCP important that patient meets with provider to discuss lab results and order followup labs. Problem Noted Date Diagnosed Date Acute otitis externa of left ear 08/08/2024 Overview (08/08/2024): Symptoms consistent with otitis externa. Unable to visualize L TM due to impacted cerumen. Hx of multiple ear surgeries, will not irrigate today. Will treat with ear drops, pt has used these in the past with very good effect. Needs new ENT - pt will call ENT office in [place] and let us know if she needs a referral. 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 Dx'd 04/05/24, prescribed Keflex x 7 days. Finished antibiotics about 2 weeks ago. Wound is healing, no signs of recurrent infection. Antibiotic-associated diarrhea 04/29/2024 Overview (04/29/2024): Patient with reports of intermittent diarrhea following Keflex 2 weeks ago. We will prescribe probiotic supplement. Reviewed medication, administration, and possible side effects. Mixed stress and urge urinary incontinence 04/24 Skin lesion of face 04/02/2024 Overview (06/26/2024): Flat, scabbed, flaky lesion to L pentecostalism without erythema. Skin surrounding lesion is dry and flaking. No drainage. Referral for derm in place. Previously diagnosed as Zoster; wound now shows signs of healing after Keflex prescribed for MRSA-colonized wound on right leg. Engaged with dermatology - biopsy taken. No results available. Will follow up with dermatology. Stage 3b chronic kidney disease 02/27/2024 Elevated lipase 02/27/2024 Assessment & Plan (02/27/2024 8:02 PM EDT): 105 at ER yesterday, denies any abdominal pain. Denies nausea or vomiting. Reports normal bm this am. After my coffee States is trying to stay hydrated but feels full quickly after eating/drinking. Denies fever. Does have a diabetes dx with most recent A1C elevated to 7. Is extremely resistant to ANY discussion of treatment, precautions, medications as noted in HPI despite multiple attempts to redirect and address importance of self monitoring, self care and symptoms to report. Followup labs ordered and encouraged to get drawn prior to upcoming PCP scheduled visit. Any new severe symptoms or concerns including abdominal pain, inability to stay well hydrated advised return to ER for immediate evaluation. Pt would not agree to follow this recommendation but did say she doesn't drive but her aide is back on Sunday morning this week and will call if aide thinks she should (for re evaluation in person). Apparently her aide saw how December appeared earlier this week and enouraged her to get medication evaluation. Elevated triglycerides with high cholesterol Herpes zoster without complication 02/22/2024 Overview (03/06/2024): Images from the original note were not included. Seen in ER 02/12/24: Reviewed available ER record, as above. Symptoms improving after Valtrex and Prednisone - however had multiple side effects from Prednisone such as jittery, anxious, insomnia, etc. Completed course. Denies vision concerns. Lesion on L pentecostalism - some green/yellow discharge. No warmth/erythema. Pt has clean telfa dressing applied and was able to reapply after exam. Discussed infection and prevention of transmission. Reviewed when to call clinic, when to go to ER. Type 2 diabetes mellitus wit hout complication, without long-term current use of insulin 02/07/2024 Overview (06/26/2024): Lab Results Component Value Date HGBA1C 6.7 (H) 09/26/2023 Lab Results Component Value Date HGBA1C 6.0 06/26/2024 A1c at goal. Diet controlled. Very resistant to medications - not on JESSICA or Statin. Will continue current treatment plan at this time. Positive RPR test 02/07/2024 Overview (02/07/2024): Reports known hx of Syphilis, was treated in 1970's. Chronic use of benzodiazepine for therapeutic pu rpose 01/10/2024 Depression, recurrent 12/12/2023 Memory change 09/26/2023 Overview (10/15/2023): Worsening headaches with dizziness and memory changes. Pt reports she had recent normal head imaging, no report available. Will attempt to request those records, and determine need for follow up imaging. Otherwise will likely refer to neuro for further evaluation. Other headache syndrome 09/26/2023 Overview (11/05/2023): BHATT for a few months - Had associated dizziness and memory changes. Neuro exam normal. Pt reported recent head imaging - but no record available to this provider, but per patient was normal. Reports headache and dizziness has resolved. Advised to focus on hydration - only drinking 2 glasses of water per day. Advised to call clinic if S/S return. Patient has active medical o rders for life-sustaining treatment (MOLST) form 08/13/2023 Overview (08/13/2023): MOLST form completed in office 08/13/2023. See scanned document. Encounter for issue of other medical certificate 08/13/2023 Overview (08/13/2023): MOLST form and health care proxy form completed and reviewed in office today. Given time to ask questions, discuss health implications. Ms. Sanchez is alert and oriented, states she is making these decisions freely. See scanned documents. Nummular dermatitis 07/24/2023 Overview (07/24/2023): 07/19/23 [facility] Derm: L and R distal calves; continue betamethasone PRN and moisturize. FU 1 yr. Hospital discharge follow-up 07/02/2023 Overview (01/10/2024): Recent fall from kitchen counter while putting up curtain. Evaluated by [facility]. Available medical record reviewed. Cleared for head trauma. Wrist laceration healing well. L Great toenail - aware toenail will likely fall off. Not currently painful. Assessment & Plan (02/27/2024 7:56 PM EDT): Images from the original note were not included. Pt with ER visit yesterday for fatigue, shakiness, evaluated and discharged. Clarified and confirmed with pt that she wasn't taking Prozac but that the new med she had started and which she feels is responsible for her symptoms is the Seroquel. Pt becomes agitated when speaking about it and states don't even talk to me about starting ANY other medicine for anything, I'm not doing it BP at ER was 144/85 CBC essentially normal, but glucose elevated at 147, creatinine 1.11 mg/dl though eGFR was slightly better (52) than recent labs ordered by PCP (see results in chart). Lipase was elevated at 105. ECG and troponin no acute findings and pt advised to f/up with PCP. From ER record in chart from 02 26 2024. Mass of left inguinal region 04/19/2023 Overview (05/28/2023): Images from the original note were not included. Told by vascular that during the most recent venous scan they noted a left inguinal mass. Not palpable on PE. Needs further evaluation - CT obtained. 05/25/23 CT Results: History of smoking 30 or more pack years 023 Overview (03/02/2023): Quit in 2020 with assistance of Nicotine patch. 120 pack year history!! Anxiety with depression 03/02/2023 Overview (03/06/2024): Zoom therapy with Tyler here at [facility]. Rx for Klonopin - no maintenance medication. 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 Ms. Sanchez is very resistant to this idea, has been taking Klonopin since 1989' and does not want to change. Had been taking 3x/daily. Has allergy listed to Buspar - believes has a rash. No allergies to SSRI's but reports she has tried them and they are not helpful, tried Zoloft. Discussed options for Klonopin wean, trial of SSRIs, or referral to psychiatry. Ms. Sanchez agreed to wean Klonopin to twice daily and would like to speak with her sister. Sister is a nurse, recommended Seroquel - Ms. Sanchez is not wanting to trial this at this time. She does not want to start a maintenance medication at this time. 01/10/24: Again reinforced above plan, that benzodiazepines should not be prescribed as monotherapy, maintenance medication is needed and can help better manage anxiety symptoms. Agreeable to referral to prescriber - has not yet heard about appointment. 01/31/24: Seen by Kavon Norton NP for Rx consult. Recommendations: - Long-term use of Klonopin for anxiety management - Possible tolerance to Klonopin due to long-term use - Recommendation to continue current Klonopin dose for three months. Consider decreasing dosage after three months to 0.25 mg BID for three months then 0.25 mg daily for 2-3 months then can consider stop or limited prn if needed. Advised to monitor mood and maintain communication with her healthcare provider - Encouragement to maintain healthy lifestyle (diet, mental activity, exercise) - Not interested in daily medication at this time; minimal trigger for anxiety and depression at this time so feel like ok to continue taper with monitoring of mood. - Advised that I would share recommendations with her PCP, she can follow up with PCP and see me again in future as needed. 02/07/24: Discussed options. Mrs. Sanchez is agreeable to starting Seroquel at night - has been having trouble sleeping. Will taper off gabapentin. Reviewed medication, administration, and potential side effects. Will continue Clonazepam 0.5mg BID x 3 months, will wean to 0.35mg BID at end of April. 03/05/24: Ms. Sanchez tried Seroquel and felt very shaky and weak x 2 days, after 1st dose. Went to ER. Is now feeling better. Discussed options. Will stop medication adjustments for now, continue Clonazepam 0.5mg BID. Will re-evaluate in 3 months. Rash 03/02/2023 Overview (04/19/2023): Etiology unclear. Has resolved. JD (generalized anxiety disorder) 06/23/2022 Abdominal aortic aneurysm without rupture 2021 Allergic rhinitis due to allergen 06/16/2022 Arthritis of left hip 06/16/2022 Asthma 06/16/2022 Overview (04/19/2023): Albuterol use once per month or less. Triggers: Allergies. Will continue to monitor. Bakers cyst 06/16/2022 Deep vein thrombosis (DVT) of left lower extremi ty 06/16/2022 Overview (06/26/2023): Engaged with vascular. On [employer]. Had recent vein scan, pt reports L inguinal area had mass . CT Abd/Pelvis previously ordered - encouraged to have done as soon as possible. 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 Diet controlled. Reiterated lifestyle modifications. Peripheral vascular disease 06/16/2022 Overview (06/04/2024): Images from the original note were not included. Plantar wart 06/16/2022 Preglaucoma, unspecified, bilateral 06/16/2022 Open angle with borderline f indings and low glaucoma risk in both eyes 06/16/2022 Pulmonary nodule 06/16/2022 Sciatica 06/16/2022 Sinus tachycardia 06/16/2022 Spinal stenosis of cervical region 06/16/2022 Overview (02/07/2024): Reports scoliosis and degenerative disc disease. Reports height loss from 5'7 to 5'1 . Declines orthopedics consult - reports she will not get surgery or injections. Declines Physical Therapy. On Gabapentin increased back to 300mg at night. Would like to get off this medication - will taper to 100mg x 7 days, then discontinue. Spondylitis 06/16/2022 Overview (10/15/2023): Hx of scoliosis. Reports worsening back pain and shrinking . Seen by [facility] - no surgery needed but offered injections and Ms. Sanchez declined. Declines PT. Has GI upset with Naproxen. Can continue Lidocaine. Pt requested decrease of Gabapentin at previous visits - since decreasing has been having increased pain. Will increase Gabapentin back to 300mg at bedtime. Vaginal spotting 06/16/2022 May-Thurner syndrome 08/25/2021 Resolved Problems Problem Noted Date Diagnosed Date Resolved Date Dysuria 09/26/2023 11/05/2023 Overview (09/26/2023): Ongoing x 1 month with frequency, without hematuria/flank pain/fever. In office urine without S/S infection. Will send for UA and culture. Cervicalgia 06/16/2022 03/02/2023 Generalized anxiety disorder 06/16/2022 10/15/2023 Hepatitis C virus infection 06/16/2022 02/07/2024 Otitis externa 06/16/2022 12/24/2023 Pain, knee 06/16/2022 02/07/2024 Smoker 06/16/2022 08/22/2022 Overview (06/26/2023): 120 pack year history! Quit 2020. Labral tear of left hip joint 04/03/2019 02/07/2024 Left hip pain 03/13/2019 02/07/2024 Encounters * This document contains information received from the source organization and may not represent a complete record from that organization. Date Type Department Care Team Description 10/14/[address] [address] Viki Pineda FNP Prior Authorization (clonazepam) 10/13/[address] [address] Tika Esparza MD Anxiety with depression 10/13/[address] [address] Viki Pineda FNP Anxiety with depression 09/25/2024 11:30 AM EDT Office Visit [facility] [address] [place] [id number] Laura Napoles, LUCERO 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 degeneration of both eyes (Primary Dx); Dry eye syndrome of both eyes; Screening for diabetes mellitus 09/25/[address] [address] Viki Pineda FNP eye issues 09/15/[address] [address] Tika Esparza MD Anxiety with depression 09/15/[address] [address] Viki Pineda FNP Anxiety with depression 08/20/[address] [address] Viki Pineda FNP Med Refill 08/18/[address] [address] Viki Pineda FNP Anxiety with depression 08/08/2024 11:40 AM EST Office Visit [address] [address] Viki Pineda FNP Acute otitis externa of left ear, unspecified type (Primary Dx) 08/05/[address] [facility] MED[facility] [address] [place] [address] Viki Pineda, STATION CAPTAIN Rash (Primary Dx) 07/24/2024 Telephone [facility] [address] [place] [address] Georgia Diop, STATION CAPTAIN Results 07/23/2024 2:00 PM EST Clinical Support [facility] MEDICAL [address] [place] [address] Lucrecia Solis LPN Increased urinary frequency; Dysuria from Last 3 Months Immunizations Name Administration Dates Next Due Hep B, adult 08/26/2007,04/10/2007,03/04/2007 Influenza, Unspecified 06/03/2013,2011,04/17/2011,2009 Pfizer Covid-19 Vaccine 12+ 08/03/2021,,2020 TD (adult), 2 Lf tetanus tox oid, preservative free, adsorbed 10/18/2005 Tdap 01/24/2012 Family History Medical History Relation Name Comments Glaucoma Mother Glaucoma Sister Relation Name Status Comments Mother Sister Social History Tobacco Use Types Packs/Day Years Used Date Smoking Tobacco: Former Cigarettes 2 60 1 961 - 2020 Passive Smoke Exposure: Past Smokeless Tobacco: Never Tobacco Cessation:Counseling Given: No Alcohol Use Standard Drinks/Week Comments Never 0 [...] housing situation today? I have jigna purcell 06/26/[address] you li ve. Do you have problems with any of the following? None of the above 06/26/2024 Food Insecurity Answer Date Recorded Within the past 12 months, y ou worried that your food would run out before you got money to buy more: Never True 06/26/2024 Within the past 12 months,th e food you bought just didn't last and you didn't have enough money to get more: Never True 06/2024 Transportation Answer Date Recorded In the past 12 months, has l ack of transportation kept you from medical appts, meetings, work or from getting things needed for daily living? No 06/26/2024 Intimate Partner Violence Answer Date R ecorded [...] shut off services in your home? No 06/26/2024 Depression Answer Date Recorded Patient Health Questionnaire-2 [...] file Not on file Not on file Last Filed Vital Signs Vital Sign Reading Time Taken Comments Blood Pressure 133/74 08/08/2024 12:05 PM EST Pulse 91 08/08/2024 12:05 PM EST Temperature 37.1 ??C (98.8 ??F) 08/08/2024 12:[address] Respiratory Rate 18 08/08/2024 12:05 PM EST Oxygen Saturation 99% 06/26/2024 9:27 AM EST Inhaled Oxygen Concentration - - Weight 59.6 kg (131 lb 6.4 oz) 08/08/2024 12:05 PM EST Height 152.4 cm (5') 08/08/2024 12:05 PM EST Body Mass Index 25.66 08/08/2024 12:05 PM EST Plan of Treatment Upcoming Encounters Date Type Department Care Team (Late st Contact Info) Description 10/23/2024 11:00 AM EDT Office Visit [facility] MED[facility] [address] [place] [address] Myla Cisse, EVAN-C [address] [place] [address] 10/29/2024 10:00 AM EDT Office Visit [facility] [address] [place] [address] Laura Napoles, OD [address] [place] [address] 11/03/2024 11:00 AM EDT Office Visit [facility] [address] [place] [address] Laura Napoles, OD [address] [place] [address] Health Maintenance Due Date Last Done Comments CT Colonography 1950 FIT DNA/Cologuard 1950 FIT 1950 FOBT 1950 Sigmoidoscopy 1950 Diabetes: Foot Exam 1960 Alcohol/Substance Use Screening 1962 Diabetes: Urine Protein Screening 1969 Pneumococcal Vaccine: 50+ Years (1 of 2 - PCV) 1969 Lung Cancer Screening 2000 Zoster Vaccines (1 of 2) 2000 RSV Patients and Patients Aged 60 years or older (1 - Risk 60-74 years 1-dose series) 2010 DTaP/Tdap/Td Vaccines (2 - Td or Tdap) 01/23/2022 01/24/2012, 10/18/2005 Colonoscopy 12/26/2022 12/26/2012, 11/07/2007 Colorectal Cancer Screening 12/26/2022 COVID-19 Vaccine ( season) 2024 08/03/2021, 01/12/2021, 2020 Influenza Vaccine (#1) 2024 3, 05/16/2012, 04/17/2011, Additional history exists Mammogram 10/27/2024 10/27/2022, 10/14, 05/15/2019 Lipid Panel 03/04/2025 03/04/2024, 08/0 02/2024, 09/26/2023, Additional history exists Diabetes: Hemoglobin A1C 03/28/2025 025, 06/26/2024, 02/21/2024, Additional history exists Depression Screening 04/02/2025 04/02/2024, 01/31/20 24 SDOH Screening 06/26/2025 06/26/2024 Tobacco Screening 09/25/2025 09/25/2024 Eye Exam 09/25/2026 09/25/2024, 09/13, 09/25/2024, Additional history exists Hepatitis B Vaccines Completed 08/26/2007, 04/10/2007, 03/04/2007 HIB Vaccines Aged Out No longer eligi ble based on patient's age to complete this topic HPV Vaccines Aged Out No longer eligi ble based on patient's age to complete this topic Hepatitis A Vaccines Aged Out No long er eligible based on patient's age to complete this topic IPV Vaccines Aged Out No longer eligi ble based on patient's age to complete this topic Meningococcal Vaccine Aged Out No melissa antonia eligible based on patient's age to complete this topic RSV under 20 months Aged Out No longe r eligible based on patient's age to complete this topic Rotavirus Vaccines Aged Out No longer eligible based on patient's age to complete this topic Procedures Procedure Name Priority Date/Time Associated Diagnosis Comments POCT GLYCOSYLATED HEMOGLOBIN (HGB A1C) Routine 09/25/2024 4:10 PM EDT Screening for diabetes mellitus OCT, RETINA - OU - BOTH EYES Routine 09/25/2024 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 degeneration of both eyes MICROSCOPIC EXAMINATION (NON ORDERABLE) Routine 07/23/2024 2:26 PM EST URINALYSIS, COMPLETE, WITH REFLEX TO CULTURE Routine 07/23/2024 2:26 PM EST Increased urinary frequency POCT URINALYSIS DIPSTICK Routine 07/23/2024 2:24 PM EST Increased urinary frequency LIPID PANEL, STANDARD Routine 03/04/2024 8:46 AM EDT HM MAMMOGRAPHY Routine 10/27/2022 COLONOSCOPY Routine 12/26/2012 12:00 AM EDT from Last 3 Months or Most Recently Relevant to Health Maintenance Results * POCT glycosylated hemoglobin (Hgb A1c) (09/25/2024 4:10 PM EDT) Hemoglobin A1C 6.0 4.0 - 6.0 % Blood Capillary blood specimen / Unknown 09/25/2024 4:10 PM EDT us Laura Napoles OD POINT OF CARE TEST ENTER/EDIT OR DERABLES Final Result * OCT, Retina - OU - Both Eyes (09/25/2024) Impressions Laura Napoles, OD - 09/25/2024 Right eye (OD): thin retinal pigment epithelium (RPE)/drusen, central lamellar/cystic changes stable, [-]CNVM Left eye (OS): thin retinal pigment epithelium (RPE)/drusen, [-]CNVM us Laura Napoles OD OPHTH TOMOGRAPHY Final Result * (ABNORMAL) Microscopic Examination (07/23/2024 2:26 PM EST) WBC, Urine None seen 0 - 5 /hpf [facility] 1 RBC, Urine None seen 0 - 2 /hpf [facility] 1 Epithelial Cells (non renal) 0-10 0 - 10 /hpf [facility] 1 Casts None seen None seen /lpf [facility] 1 Crystals Present(A) N/A [facility] 1 Crystal Type Calcium Oxalate N/A [facility] 1 Bacteria None seen None seen/Few [facility] 1 07/23/2024 2:26 PM EST 07/23/2024 Comment:Urine, Clean Catch Narrative [facility] 1 - 07/24/2024 8:06 AM EST Performed at: ??01 - [facility] [address] ??[id number] Traffic Sign Erection Supervisor: Malu Gaspar MD, Phone: ??[phone] Viki Pineda STATION CAPTAIN HISTORICAL/NON ORDERABLE LABS Fi nal Result [facility] 1 * Urinalysis, Complete, with Reflex to Culture (07/23/2024 2:26 PM EST) Pathologist [facility] Specific [place] 1.019 1.005 - 1.030 [facility] 1 pH, Urine 5.5 5.0 - 7.5 [facility] 1 Color Yellow Yellow [facility] 1 Appearance Clear Clear [facility] 1 Leukocyte esterase, Urine Negative Negative [facility] 1 Protein,Urine Trace Negative/Tra ce [facility] 1 Glucose, Urine Negative Negative [facility] 1 Ketones,Urine Negative Negative [facility] 1 Occult Blood,Urine Negative Negative [facility] 1 Bilirubin,Urine Negative Negative [facility] 1 Urobilinogen,Se mi-Qn 0.2 0.2 - 1.0 mg/dL [facility] 1 Nitrite,Urine Negative Negative [facility] 1 Microscopic Examination [facility] 1 Comment:Microscopic follows if indicated. Microscopic Examination See below: [facility] 1 Comment:Microscopic was ahsan cated and was performed. Urinalysis Reflex [facility] 1 Comment:This specimen will n ot reflex to a Urine Culture. Urine Urine specimen obtained by clean catch procedure / Unknown 07/23/2024 2:26 PM EST 07/23/2024 Comment:Urine, Clean Catch Narrative [facility] 1 - 07/24/2024 8:06 AM EST Performed at: ??01 - [facility] [address] ??[id number] Traffic Sign Erection Supervisor: Malu Gaspar MD, Phone: ??[phone] Viki Pineda [facility] LAB URINE ORDERABLES Final Resul t [facility] 1 * POCT urinalysis dipstick manually resulted (07/23/2024 2:24 PM EST) Color, UA Light Yellow Clarity, UA Clear Glucose, UA Negative Bilirubin, UA Negative Ketones, UA Negative Spec Grav, UA 1.030 Blood, UA Negative Negative, None Detected pH, UA 5.5 Protein, UA Negative Urobilinogen, UA 0.2 Leukocytes, UA Negative Negative, Rare, Trace Nitrite, UA Negative Negative, None Detected Urine 07/23/2024 2:24 PM EST [facility] POINT OF CARE TEST ENTER/EDIT OR DERABLES Final Result * (ABNORMAL) Lipid Panel, Standard (03/04/2024 8:46 AM EDT) Cholesterol, Total 243(H) 100 - 199 mg/dL [facility] 1 Triglycerides 362(H) 0 - 149 mg/dL [facility] 1 HDL Cholesterol 41 >39 mg/dL [facility] 1 VLDL Cholesterol Kasi 66(H) 5 - 40 mg/dL [facility] 1 LDL Chol Calc (NIH) 136(H) 0 - 99 mg/dL [facility] 1 03/04/2024 8:46 AM EDT 03/04/2024 Narrative [facility] 1 - 03/05/2024 12:05 AM EDT Performed at: ??01 - [facility] [address] ??[id number] Traffic Sign Erection Supervisor: Malu Gaspar MD, Phone: ??[phone] Majo Mccall POLICY CANCELLATION CLERK LAB BLOOD ORDERABLES Final Resul t [facility] 1 * Hm Mammography (10/27/2022) Anatomical Region Laterality Modality Other us Historical Provider HEALTH MAINTENANCE Final Result * COLONSCOPY (12/26/2012 12:00 AM EDT) Anatomical Region Laterality Modality Endoscopy 12/26/2012 Narrative 12/26/2012 12:00 AM EDT Refer to [facility] for result details Legacy Procedure: COLONSCOPY Procedure Note Provider, Jorge, - 11/09/2022 Refer to [facility] for result details Legacy Procedure: COLONSCOPY Historical Provider ENDOSCOPY PROCEDURE ORDER TIO Final Result from Last 3 Months or Most Recently Relevant to Health Maintenance Additional Health Concerns Infection Onset Date Last Indicated MRSA 04/05/2024 04/09/2024 Insurance [facility] ALF OPTIONS (HMO D-SNP) Advance Directives Documents on File Type Date Recorded Patient Motor Vehicle Operator Road Supervisor Expl anation HealthCare Proxy 08/13/2023 2:41 PM HCP [facility] form 08/13/2023 2:40 PM [facility] Care Teams Icer Hand Relationship Specialty Start Date End Date Viki Pineda FNP [address] [place] [address] PCP - General Family Medicine 01/22/23 Constance Mendez LCSW Senior Quality Engineer Behavioral Health 06/22/23
--- OUTSIDE RECORDS SUMMARY | 2024-10-21 13:31 | XMS_ITS | Encounter Summary ---
Author Organization [employer] Address [address] [place] [address] 7t [place] [address] Care Team Providers Care Publications Editor Name Role Phone Viki Pineda Primary Care Provider [phone] Constance Mendez LCSW Unavailable Unav ailable Reason for Visit * Reason Onset Date Comments Med Refill 11/27/2023 Encounter Details Date Type Department Care Team (Late st Contact Info) Description 11/27/2023 Telephone [place] [facility] MEDICAL [address] [place] [address] Viki Pineda FNP [address] [place] [address] Med Refill Social History Tobacco Use Types Packs/Day Years [...] Answer Date Recorded Patient Health Questionnaire-9 Score 10 06/22/2023 Patient Health Questionnaire-9 Score 10 06/22/2023 Last PHQ-9: Questionnaire Data Not on file 1 08/23/2022 Housing Stability Answer Date Recorded What is [...] Date Recorded Patient Health Questionnaire-2 Score 0 09/26/2023 Education Answer Date Recorded What is the [...] encounter Miscellaneous Notes * Telephone Encounter - Nelson Manrique - 11/27/2023 10:45 AM EDT Both medications are pending in the PCP basket. * Telephone Encounter - Summer Villagomez - 11/27/2023 10:12 AM EDT Patient LMOM asking for med refill gabapentin (Neurontin) 300 MG capsule [[id number]] clonazePAM (KlonoPIN) 0.5 MG tablet [[id number]] Pharmacy [facility]/pharmacy #[id number] [facility] [id number] documented in this encounter Plan of Treatment Upcoming Encounters Date Type Department Care Team (Late st Contact Info) Description 10/23/2024 11:00 AM EDT Office Visit [facility] MEDICAL [address] [place] [address] Myla Cisse FNP-C [address] [place] [address] 10/29/2024 10:00 AM EDT Office Visit [facility] OPTOMETRY [address] [place] [address] Laura Napoles, OD [address] [place] [address] 11/03/2024 11:00 AM EDT Office Visit [facility] OPTOMETRY [address] [place] [address] Laura Napoles, OD [address] [place] [address] documented as of this encounter Visit Diagnoses Not on filedocumented in this encounter Additional Health Concerns Infection Onset Date Last Indicated Resolved Time MRSA 04/05/2024 04/09/2024 Assessment Noted Time PHQ-9 Depression Total Score: 10 12/2 023 11:27 AM EST documented as of this encounter Care Teams Publications Editor Relationship Specialty Start Date End Date Viki Pineda FNP [address] [place] [address] PCP - General Family Medicine 01/22/23 Constance Mendez LCSW Tax Services Intern Behavioral Health 06/22/23 documented as of this encounter
--- OUTSIDE RECORDS SUMMARY | 2024-10-21 13:31 | XMS_ITS | Encounter Summary ---
Author Organization [employer] Address [address] [place] [address] 7[address] [place] [address] Care Team Providers Care Pilot Instructor Name Role Phone Edwin Viki GORDON Primary Care Provider [phone] Constance MendezW Unavailable Unav ailable Encounter Details Date Type Department Care Team (Late st Contact Info) Description 12/31/2023 Orders Only [facility] [address] [place] [address] Viki Pineda FNP [address] [place] [address] Social History Tobacco Use Types Packs/Day Years [...] Description 10/23/2024 11:00 AM EDT Office Visit [place] [facility] MEDICAL [address] [place] [address] Myla Cisse FNP-C [address] [place] [address] 10/29/2024 10:00 AM EDT Office Visit [facility] OPTOMETRY [address] [place] [address] Laura Napoles, OD [address] [place] [address] 11/03/2024 11:00 AM EDT Office Visit [facility] OPTOMETRY [address] [place] [address] Laura Napoles, OD [address] [place] [address] documented as of this encounter Procedures Procedure Name Priority Date/Time Associated Diagnosis Comments CT CERVICAL SPINE WO CONTRAST Routine 12/29/2023 11:[address] HEAD WO CONTRAST Routine 12/29/2023 11:00 AM EDT XR TOES 2+ VIEWS LEFT Routine 12/29/2023 10:59 AM EDT documented in this encounter Results * CT Cervical Spine w/o Contrast (12/29/2023 11:01 AM EDT) Anatomical Region Laterality Modality Spine, C-spine Computed Tomogra phy Viki Pineda [facility] CT PROCEDURES Final Result * CT HEAD WO CONTRAST (12/29/2023 11:00 AM EDT) Anatomical Region Laterality Modality Computed Tomogra phy Viki Pineda [facility] CT PROCEDURES Final Result * XR Toes 2+ Left (12/29/2023 10:59 AM EDT) Anatomical Region Laterality Modality Lower Extremities, Toes Left Radiogra phic Imaging Viki Pineda [facility] XR PROCEDURES Final Result documented in this encounter Visit Diagnoses Not on filedocumented in this encounter Additional Health Concerns Infection Onset Date Last Indicated Resolved Time MRSA 04/05/2024 04/09/2024 Assessment Noted Time PHQ-9 Depression Total Score: 10 06/22/2 023 11:27 AM EST documented as of this encounter Care Teams Pilot Instructor Relationship Specialty Start Date End Date Viki Pineda FNP [address] [place] [address] PCP - General Family Medicine 01/22/23 Constance Mendez LCSW Conditioning Yard Supervisor Behavioral Health 06/22/23 documented as of this encounter
--- OUTSIDE RECORDS SUMMARY | 2024-10-21 13:31 | XMS_ITS | Encounter Summary ---
Author Organization [employer] Address [address] [place] [address] 7t [place] [address] Care Team Providers Care Commissions Coordinator Name Role Phone Viki Pineda Primary Care Provider [phone] Constance Mendez LCSW Unavailable Unav ailable Reason for Visit * Reason Comments Med Refill Encounter Details Date Type Department Care Team (Late st Contact Info) Description 10/13/2024 Refill [facility] MEDICAL [address] [place] [address] Tika Esparza MD [address] [place] [address] Anxiety with depression Social History Tobacco Use Types Packs/Day Years Used Date Smoking Tobacco: Former Cigarettes 2 60 1 961 - 1 Passive Smoke Exposure: Past Smokeless Tobacco: Never [...] Description 10/23/2024 11:00 AM EDT Office Visit [facility] MEDICAL [address] [place] [address] Myla Cisse FNP-C [address] [place] [address] 10/29/2024 10:00 AM EDT Office Visit [facility] OPTOMETRY [address] [place] [address] Laura Napoles, OD [address] [place] [address] 11/03/2024 11:00 AM EDT Office Visit [facility] OPTOMETRY [address] [place] [address] Laura Napoles, OD [address] [place] [address] documented as of this encounter Visit Diagnoses Diagnosis Anxiety with depression documented in this encounter Additional Health Concerns Infection Onset Date Last Indicated Resolved Time MRSA 04/05/2024 04/09/2024 Assessment Noted Time PHQ-9 Depression Total Score: 1 01/31/20 24 2:51 PM EDT documented as of this encounter Care Teams Commissions Coordinator Relationship Specialty Start Date End Date Viki Pineda FNP [address] [place] [address] PCP - General Family Medicine 01/22/23 Constance Mendez LCSW Human Resources Benefits Manager Behavioral Health 06/22/23 documented as of this encounter
--- OUTSIDE RECORDS SUMMARY | 2024-10-21 13:31 | XMS_ITS | Encounter Summary ---
Author Organization [employer] Address [address] [place] [address] 7 [place] [address] Care Team Providers Care Respiratory Therapy Technician Name Role Phone Suzi Simmons CLIENT OPERATIONS MANAGER Unavailable Unavailable Viki Pineda Primary Care Provider [phone] Constance Mendez LCSW Unavailable Unav ailable Reason for Visit * Reason Comments Med Refill Encounter Details Date Type Department Care Team (Late st Contact Info) Description 02/21/2023 Refill [facility] MEDICAL [address] [place] [address] Tika Esparza MD [address] [place] [address] Peripheral vascular disease, unspecified (CMS/HCC) Social History Tobacco Use Types Packs/Day Years Used Date Smoking Tobacco: Former Cigarettes 2 60 1 961 - 2020 Smokeless Tobacco: Never Alcohol Use Standard Drinks/Week Comments Never 0 (1 standard drink = 0.6 oz pur e alcohol) Depression Answer Date Recorded Patient Health Questionnaire-9 Score 5 02/16/2023 Depression Answer Date Recorded Patient Health Questionnaire-2 Score 3 02/16/2023 Comments Unknown Sex and Gender Information Value Date Recorded Sex Assigned at Female 06/21/2022 2:24 PM EST Legal Sex Female 8:34 PM EDT Gender Identity Female 06/21/2022 2:24 PM EST Sexual Orientation Straight 06/21/2022 2: 24 PM EST documented as of this encounter Miscellaneous Notes * Telephone Encounter - Jericho Eldridge CMA - 02/21/2023 3:52 PM EDT Duplicate request, to [place] to reject documented in this encounter Plan of Treatment Upcoming Encounters Date Type Department Care Team (Late st Contact Info) Description 10/23/2024 11:00 AM EDT Office Visit [facility] MEDICAL [address] [place] [address] Myla Cisse FNP-C [address] [place] [address] 10/29/2024 10:00 AM EDT Office Visit [facility] OPTOMETRY [address] [place] [address] Laura Napoles, OD [address] [place] [address] 11/03/2024 11:00 AM EDT Office Visit [facility] OPTOMETRY [address] [place] [address] Laura Napoles, OD [address] [place] [address] documented as of this encounter Visit Diagnoses Diagnosis Peripheral vascular disease, unspecified (CMS/HCC) Peripheral vascular disease, unspecified documented in this encounter Additional Health Concerns Infection Onset Date Last Indicated Resolved Time MRSA 04/05/2024 04/09/2024 Assessment Noted Time PHQ-9 Depression Total Score: 5 02/17/20 23 7:33 AM EDT documented as of this encounter Care Teams Respiratory Therapy Technician Relationship Specialty Start Date End Date Viki Pineda FNP [address] [place] [address] PCP - General Family Medicine 01/22/23 Suzi Simmons LICSW Senior Receptionist Behavioral Health 06/23/22 07/22/23 Constance Mendez LCSW Senior Receptionist Behavioral Health 06/22/23 documented as of this encounter
--- OUTSIDE RECORDS SUMMARY | 2024-10-21 13:31 | XMS_ITS | Encounter Summary ---
Author Organization [employer] Address [address] [place] [address] 7t [place] [address] Care Team Providers Care Breakfast Attendant Name Role Phone Viki Pineda Primary Care Provider Constance Mendez LCSW Unavailable Unav ailable Reason for Visit * Reason Onset Date Comments eye issues 09/25/2024 Encounter Details Date Type Department Care Team (Late st Contact Info) Description 09/25/2024 Telephone [place] [facility] MEDICAL [address] [place] [address] Viki Pineda FNP [address] [place] [address] eye issues Social History Tobacco Use Types Packs/Day Years [...] encounter Miscellaneous Notes * Telephone Encounter - Kierra Cartagena LPN - 09/25/2024 11:40 AM EDT Reviewed. * Telephone Encounter - Shirin Thomas - 09/25/2024 9:04 AM EDT Patient called stating when I wake up in the morning, both my eyes are black, this started about aweek ago, I see stars or something, I feel like I???m going blind, I don't know what's going on, I want an earlier appointment to be seen. Patient states she would like a call back, okay to leave detailed message on voicemail. Thank you! documented in this encounter Plan of Treatment Upcoming Encounters Date Type Department Care Team (Late st Contact Info) Description 10/23/2024 11:00 AM EDT Office Visit [facility] MEDICAL [address] [place] [address] Myla Cisse, FINANCIAL SALES MANAGER-C [address] [place] [address] 10/29/2024 10:00 AM EDT Office Visit [facility] OPTOMETRY [address] [place] [address] Laura Napoles, OD [address] [place] [address] 11/03/2024 11:00 AM EDT Office Visit [facility] OPTOMETRY [address] [place] [address] Laura Napoles, OD [address] [place] [address] documented as of this encounter Visit Diagnoses Not on filedocumented in this encounter Additional Health Concerns Infection Onset Date Last Indicated Resolved Time MRSA 04/05/2024 04/09/2024 Assessment Noted Time PHQ-9 Depression Total Score: 1 01/31/20 24 2:51 PM EDT documented as of this encounter Care Teams Breakfast Attendant Relationship Specialty Start Date End Date Viki Pineda FNP [address] [place] [address] PCP - General Family Medicine 01/22/23 Constance Mendez LCSW Nuclear Criticality Safety Engineer Behavioral Health 06/22/23 documented as of this encounter
--- OUTSIDE RECORDS SUMMARY | 2024-10-21 13:31 | XMS_ITS | Clinical Summary ---
Author Organization [address] [place] [address] Address [address] [place] [address] Phone Care Team Providers Care Barge Worker Name Role Phone Tika Esparza MD Primary Care Provider [phone] Allergies Active Allergy Reactions Criticality Noted Date Comments Acetaminophen Anaphylaxis High 08/23/2021 Amoxicillin 03/13/2019 Buspirone 03/13/2019 Codeine Anaphylaxis High 08/23/2021 Cyclobenzaprine 03/13/2019 Doxycycline 03/13/2019 Levofloxacin 03/13/2019 Naproxen 03/13/2019 Oxycodone 03/13/2019 Penicillins 03/13/2019 Propoxyphene Anaphylaxis High 08/23/2021 Sulfamethizole High 08/23/2021 Other reaction(s): Hives/Urticaria Tamsulosin 03/13/2019 Tetanus-Diphtheria Toxoids-Td 2021 Other reaction(s): Rash/Dermatitis Tramadol 03/13/2019 Trimethoprim High 08/23/2021 Other reaction(s): Hives/Urticaria Medications clonazePAM (KlonoPIN) 0.5 mg tablet Take 0.5 mg by mouth 3 (three) times a day. 07/13/2021 Active apixaban (Eliquis) 5 mg tablet 08/18/2021 Active gabapentin (NEURONTIN) 300 mg capsule 06/18/2021 Active loratadine 10 mg capsule Take by mouth. Active POLYVINYL ALCOHOL OPHT apply to the eye. 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/25/2021 Anxiety 08/23/2021 COPD (chronic obstructive pulmonary disease) 02/2022 Gait instability 08/23/2021 Tobacco dependence 08/23/2021 Immunizations Name Administration Dates Next Due Pfizer SARS-CoV-2 COVID-19, mRNA, LNP-S, preservative free 08/03/2021,01/12/2021 Surgical History Surgery Date Site/Laterality Comments OTHER SURGICAL HISTORY 08/16/2021 PROCEDURE: OR TRLML BALO ANGIOP OPEN/PERQ W/IMG S&I 1ST VEIN OTHER SURGICAL HISTORY 08/16/2021 PROCEDURE: OR TRLML BALO ANGIOP OPEN/PERQ W/IMG S&I ADDL VEIN; COMMENT: x2 OTHER SURGICAL HISTORY 08/16/2021 PROCEDURE: OR SEC PRQ TRLUML THRMBC N-CORONARY N-INTRACRANIAL OTHER SURGICAL HISTORY 08/16/2021 PROCEDURE: OR INTRAVASCULAR US NONCORONARY RS&I INTIAL VESSEL OTHER SURGICAL HISTORY 08/16/2021 PROCEDURE: OR INTRAVASCULAR US NONCORONARY RS&I ADDL VESSEL; COMMENT: x4 OTHER SURGICAL HISTORY 08/16/2021 PROCEDURE: ULTRASOUND GUIDANCE FOR VASCULAR AC OTHER SURGICAL HISTORY 05/09/2022 PROCEDURE: OR NJX PX XTR VNGRPH W/INTRO NDL/INTRACATH OTHER SURGICAL HISTORY 05/09/2022 PROCEDURE: X-RAY EXAM OF ARM/LEG VEINS OTHER SURGICAL HISTORY 05/09/2022 PROCEDURE: ULTRASOUND GUIDANCE FOR VASCULAR AC FOOT SURGERY PROCEDURE:FOOT SURGERY APPENDECTOMY PROCEDURE:APPENDECTOMY CHOLECYSTECTOMY PROCEDURE:CHOLECYSTECTOMY TONSILLECTOMY ADENOIDECTOMY, BILATERAL MYRINGOTOMY AND TUBES PROCEDURE:TONSILECTOMY, ADENOIDECTOMY, BILATERAL MYRINGOTOMY AND TUBES JOINT REPLACEMENT PROCEDURE:JOINT REPLACEMENT Medical History Medical History Date Comments Asthma DX:Asthma Kidney damage DX:Kidney damage GERD (gastroesophageal reflux disease) DX:GERD (gastroesophageal reflux disease) Family History Medical History Relation Name Comments Cancer Brother Heart disease Brother Cancer Father Heart disease Mother Relation Name Status Comments Brother Father Mother Social History Tobacco Use Types Packs/Day Years Used Date Smoking Tobacco: Former Cigarettes 2 60 Tobacco Cessation:Counseling Given: Not Answered Comments Unknown Sex and Gender Information Value Date Recorded Sex Assigned at Not on file Legal Sex Female 9:13 AM EST Gender Identity Not on file Sexual Orientation Not on file Obstetrics History Last Filed Vital Signs Vital Sign Reading Time Taken Comments Blood Pressure 130/70 05/19/2024 1:53 PM EST Pulse 72 05/19/2024 1:53 PM EST Temperature - - Respiratory Rate 16 05/19/2024 1:53 PM EST Oxygen Saturation - - Inhaled Oxygen Concentration - - Weight 58.1 kg (128 lb) 05/19/2024 1:53 PM EST Height 152.4 cm (5') 05/19/2024 1:53 PM EST Body Mass Index 25 05/19/2024 1:53 PM EST Plan of Treatment Upcoming Encounters Date Type Department Care Team (Late st Contact Info) Description 05/20/2025 1:00 PM EST Office Visit [facility] [place] [address] [place] [address] Sanam Urena PA [address] [facility] [address] [place] [address] Health Maintenance Due Date Last Done Comments Breast Cancer Screening 1950 Diabetes: Annual Foot Exam 1960 Diabetes: Annual Retina Eye Exam 1960 Pneumococcal Vaccine: 50+ Years (1 of 2 - PCV) 1969 Zoster Vaccines (1 of 2) 2000 RSV Immunization Adult Patients (1 - Risk 60-74 years 1-dose series) 2010 DTaP,Tdap,and Td Vaccines (3 - Td or Tdap) 01/23/2022 01/24/2012, 10/18/2005 Falls Risk Assessment 06/23/2022 Hepatitis C Screening 06/23/2022 Lung Cancer Screening (Low Dose CT) 06/23/2022 Medicare Annual Wellness Visit 06/23/2022 Osteoporosis Screening (Bone Density Screening) 06/23/2022 Social Influencers of Health Screening 06/23/2022 Colorectal Cancer Screening: Colonoscopy 12/26/2022 12/26/2012 COVID-19 Vaccine ( season) 2024 08/03/2021, 01/12/2021, 2020 Diabetes: Annual Urine Albumin-Creatinine Ratio (uACR) 05/19/2024 Diabetes: Blood Sugar Control Test (HGBA1C) 08/23/2024 02/21/2024 Depression Screening 01/30/2025 01/31/2024 Diabetes: Annual GFR (Glomerular Filtration Rate) 02/20/2025 02/21/2024 Hypertension/CHF/CAD Annual BMP Blood Test 02/20/2025 02/21/2024 Influenza Vaccine (Season Ended) 2025 06/03/2013, 05/16/2012, 04/17/2011, Additional history exists Cholesterol Screening (Lipid Panel) 03/04/2029 03/04/2024, 02/21/2024 Hepatitis B Vaccines Completed 08/26/2007, 04/10/2007, 03/04/2007 [...] on patient's age to complete this topic MMR Vaccines Aged Out No longer eligi ble based on patient's age to complete this topic Meningococcal ACWY Vaccine Aged Out N o longer eligible based on patient's age to complete this topic Meningococcal B Vaccine Aged Out No l onger eligible based on patient's age to complete this topic RSV Immunization Patients Under 20 months Aged Out No longer eligible based on patient's age to complete this topic Varicella Vaccines Aged Out No longer eligible based on patient's age to complete this topic Insurance [facility] MEDICARE Member Subscriber Plan / Payer (Ef fective 2020-Present) Name:Helena Sanchez Relation to Subscriber:Self Name:Helena Sanchez Payer ID:[id number] Group ID:[id number] Type:Not on file Address: [address] [place] [phone] Advance Directives Documents on File Type Date Recorded Patient Supervisor Facepiece Line Expl anation Health Care Decision (hx) 06/03/2021 AD XAVIER DIRECTIVE Health Care Decision (hx) 06/03/2021 AD XAVIER DIRECTIVE Health Care Decision (hx) 06/03/2021 AD XAVIER DIRECTIVE Health Care Decision (hx) 06/03/2021 AD XAVIER DIRECTIVE Health Care Decision (hx) 06/03/2021 AD XAVIER DIRECTIVE Health Care Decision (hx) 06/03/2021 AD XAVIER DIRECTIVE Health Care Decision (hx) 06/03/2021 AD XAVIER DIRECTIVE Health Care Decision (hx) 06/03/2021 AD XAVIER DIRECTIVE Health Care Decision (hx) 06/03/2021 AD XAVIER DIRECTIVE Health Care Decision (hx) 06/03/2021 AD XAVIER DIRECTIVE Care Teams Barge Worker Relationship Specialty Start Date End Date Tika Esparza MD [address] [place] [address] PCP - General Internal Medicine 06/16/21
--- OUTSIDE RECORDS SUMMARY | 2024-10-21 13:31 | XMS_ITS | Encounter Summary ---
Author Organization [employer] Address [address] [facility] 7t [place] [address] Care Team Providers Care Corn Husk Baler Name Role Phone Edwin Viki GORDON Primary Care Provider [phone] Constance MendezW Unavailable Unav ailable Encounter Details Date Type Department Care Team (Late st Contact Info) Description 04/09/2024 Orders Only [facility] [address] [place] [address] Viki Pineda FNP [address] [place] [address] Social History Tobacco Use Types Packs/Day Years [...] Description 10/23/2024 11:00 AM EDT Office Visit [facility] MEDICAL [address] [place] [address] Myla Cisse, POLLUTION CONTROL CHEMIST-C [address] [place] [address] 10/29/2024 10:00 AM EDT Office Visit [facility] OPTOMETRY [address] [place] [address] Laura Napoles, OD [address] [place] [address] 11/03/2024 11:00 AM EDT Office Visit [facility] OPTOMETRY [address] [place] [address] Laura Npaoles, OD [address] [place] [address] documented as of this encounter Procedures Procedure Name Priority Date/Time Associated Diagnosis Comments XR HIP 2 OR 3 VIEWS LEFT Routine 03/26/2024 10:14 AM EDT documented in this encounter Results * XR Hip 2 or 3 Views Left (03/26/2024 10:14 AM EDT) Anatomical Region Laterality Modality Lower Extremities, Hip Left Radiograp hic Imaging Viki GORDON IMG XR PROCEDURES Final Result documented in this encounter Visit Diagnoses Not on filedocumented in this encounter Additional Health Concerns Infection Onset Date Last Indicated Resolved Time 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
--- OUTSIDE RECORDS SUMMARY | 2024-10-21 13:31 | XMS_ITS | Encounter Summary ---
Author Organization [employer] Address 75 [facility] 7t [place] [address] Care Team Providers Care Trimming Inspector Name Role Phone Viki Pineda Primary Care Provider [phone] Constance MendezW Unavailable Unav ailable Encounter Details Date Type Department Care Team (Late st Contact Info) Description 03/07/2024 Orders Only [facility] [address] [place] [address] Viki Pineda FNP [address] [place] [address] Social History Tobacco Use Types Packs/Day Years [...] Description 10/23/2024 11:00 AM EDT Office Visit [facility] MED[facility] [address] [place] [phone] Myla Cisse FNP-C [address] [place] [address] 10/29/2024 10:00 AM EDT Office Visit [facility] OPTOMETRY [address] [place] [address] Laura Napoles, OD [address] [place] [address] 11/03/2024 11:00 AM EDT Office Visit [facility] OPTOMETRY [address] [place] [address] Laura Napoles, OD [address] [place] [address] documented as of this encounter Procedures Procedure Name Priority Date/Time Associated Diagnosis Comments ECG 12-LEAD Routine 02/26/2024 7:35 AM EDT documented in this encounter Results * ECG 12 lead (02/26/2024 7:35 AM EDT) Viki GORDON ECG ORDERABLES Final Result documented in this encounter Visit Diagnoses Not on filedocumented in this encounter Additional Health Concerns Infection Onset Date Last Indicated Resolved Time 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
--- OUTSIDE RECORDS SUMMARY | 2024-10-21 13:31 | XMS_ITS | Clinical Summary ---
Author Organization [facility] Address [address] [place] [address] Care Team Providers Care Coal Hiker Name Role Phone Tika Esparza MD Primary Care Provider [phone] Allergies Active Allergy Reactions Criticality Noted Date Comments Acetaminophen Anaphylaxis High 08/23/2021 Amoxicillin 03/13/2019 Sulfamethoxazole-Trimethoprim 2018 Buspirone 03/13/2019 Doxycycline 03/13/2019 Cyclobenzaprine 03/13/2019 Tamsulosin 03/13/2019 Levofloxacin 03/13/2019 Naproxen 03/13/2019 Oxycodone 03/13/2019 Penicillins 03/13/2019 Propoxyphene Anaphylaxis High 08/23/2021 Sulfamethizole High 08/23/2021 Other reaction(s): Hives/Urticaria Tetanus Antitoxin 03/13/2019 Tetanus-Diphtheria Toxoids Td 2021 Other reaction(s): Rash/Dermatitis Trimethoprim High 08/23/2021 Other reaction(s): Hives/Urticaria Tramadol 03/13/2019 Medications Medication Sig Dispensed Refills Start Date End Date Status albuterol (PROVENTIL HFA;VENTOLIN HFA) 108 (90 Base) MCG/ACT inhaler 2 puffs every 4 (four) hours as needed. 2 03/06/2019 Active omeprazole (PriLOSEC) 40 MG capsule Take 40 mg by mouth daily. 1 03/06/2019 Active sucralfate (CARAFATE) 1 g tablet Take 1 g by mouth every night at bedtime. 3 01/03/2019 Active Loratadine 10 MG CAPS Take by mouth. 0 Active gabapentin (NEURONTIN) 100 MG capsule Take 100 mg by mouth 3 (three) times a day. 0 Active gabapentin (NEURONTIN) 300 MG capsule 0 06/18/2021 Active nicotine (NICODERM CQ) 21 MG/24HR 0 08/18/2021 Active HYDROmorphone (DILAUDID) 2 MG tablet Take 2 mg by mouth every 6 (six) hours as needed. for pain 0 06/17/2021 Active clonazePAM (KlonoPIN) 0.5 MG tablet Take 0.5 mg by mouth 3 (three) times a day. 0 07/13/2021 Active Aspirin Low Dose 81 MG EC tablet Take 81 mg by mouth daily. 0 07/13/2021 Active Eliquis 5 MG TABS tablet 0 08/18/2021 Active nicotine (NICODERM CQ) 7 MG/24HR APPLY 1 PATCH TO SKIN EVERY DAY FOR 30 DAYS 0 07/24/2022 Active Active Problems Problem Noted Date Diagnosed Date Postop check 08/25/2021 Labral tear of left hip joint 04/03/2019 Arthritis of left hip 04/03/2019 Left hip pain 03/13/2019 Family History Medical History Relation Name Comments Cancer Brother Heart disease Brother Cancer Father Heart disease Mother Relation Name Status Comments Brother Father Mother Social History Tobacco Use Types Packs/Day Years Used Date Smoking Tobacco: Never Assessed Sex and Gender Information Value Date Recorded Sex Assigned at Not on file Gender Identity Not on file Sexual Orientation Not on file Job Start Date Occupation Industry Not on file Not on file Not on file Last Filed Vital Signs Vital Sign Reading Time Taken Comments Blood Pressure - - Pulse - - Temperature - - Respiratory Rate - - Oxygen Saturation - - Inhaled Oxygen Concentration - - Weight 58.1 kg (128 lb) 08/25/2021 2:18 PM EST Height 154.9 cm (5' 1 ) 08/25/2021 2:18 PM EST Body Mass Index 24.19 08/25/2021 2:18 PM EST Plan of Treatment Health Maintenance Due Date Last Done Comments Hepatitis C Screening 1950 Depression Screening 1962 Preventative Health Evaluation 1968 Colon Cancer Screening (Colonoscopy) 12/28/1995 Breast Cancer Screening (Mammogram) 2000 Shingrix-Zoster Vaccine (1 o f 2) 2000 Fall Risk Assessment 12/28/2015 Osteoporosis Screening (DEXA Scan) 12/28/2015 Pneumococcal Vaccine (1 of 1 - PCV) 12/28/2015 DTap / Tdap / Td (2 - Td or Tdap) 01/23/2022 01/24/2012, 10/18/2005 COVID-19 Vaccine (2023-2 5 season) 2024 08/03/2021, 01/12/2021, 2020 Influenza Vaccine (#1) 2024 RSV Adult > 60+ Yrs or (1 - 1-dose 75+ series) 2025 Hepatitis B Vaccines Aged Out No long er eligible based on patient's age to complete this topic RSV Ped < 20 months Aged Out No longe r eligible based on patient's age to complete this topic Care Teams Coal Hiker Relationship Specialty Start Date End Date Tika Esparza MD [address] [place] [address] PCP - General Internal Medicine 03/13/19
--- OUTSIDE RECORDS SUMMARY | 2024-10-21 13:31 | XMS_ITS | Data Portability ---
Author Organization [employer] Address [address] [place] [id number] Care Team Providers Care Computer Technician Name Role Phone HIM CCA OTHER Assessment Encounter Date Assessment Date Assessment LastModified by Organization Details LastModified Time 03/01/2024 03/01/2024 As noted, we kelvin castaneda called to see this patient regarding concerns of chills, shakiness, dull BHATT, especially after eating, along with bloating and early satiety. Seen in ED for this recently as well. Evaluation in the field was performed by my wire drawing machine operator colleague, as noted above, I provided real-time direction and supervision for this visit. The evaluation revealed normal VS. Patient reports she hasn't had a BM in 1 week. Normally goes daily. Labs are concerning for elevated lactate of 4.3 and hyperglycemia of 290+, and normal AG. EKG shows pathologic Q in III, other Q-waves, and question of abnormal RWP in early precordium. Chart review shows her baseline a1c is 7.0, not on DM meds, triglycerides of 590. BUN:Cr is < 20:1, arguing against hypovolemia as cause of lactate. Impression: 73 yoF with PMH DVT, anxiety, DM, p/w vague abd sx, new constipation, and hyperglycemia and lactatemia. Hard to know what's going on here, but I think the possibility of an acute abdominal process, especially mesenteric ischemia, pancreatitis (given Trigs), portal vein thrombosis, or GA needs to be excluded. The hyperglycemia in my view is concerning for an acute process. Ddx for this presentation would also include diabetes with the chills being due to post-prandial hyperglycemia, and the lactate perhaps related to poor clearance in setting of osmotic diuresis and hypovolemia, and the other symptoms related to IBS or other issue. Still, I think the lactate needs to be respected. Plan: Counseled extensively on the need for ED evaluation to exclude serious causes as above Discussed my concern for a potentially life-threatening process She voiced concern for difficulty getting a ride home, explained this is valid but not a reason to risk her life. She stated she would get her things and go to ED Primary care, consider check-in call Sunday Disposition: We discussed the situation and I recommended referral to the emergency department. This was based on need to exclude a serious intraabdominal process. [email or web address] Not available 03/01/2024 12:24:14 Plan of Treatment Reminders Order Date Submit Date Provider Last Modified By Organization Details Last Modified Time Details Appointments None recorded. Lab BMP, serum or plasma [address], [phone] 08:05:53 Referral None recorded. Procedures None recorded. Surgeries None recorded. Imaging electrocard iogram [facility], [address] 12:26:17 Medication Orders None recorded. Patient TargetsNo targets recorded. Patient InstructionsNo instructions recorded. Reason for Referral None Reported. Results Created Date Observation Date Name Description Value Unit Range Abnormal Flag Note LastModifiedBy Organization Detail LastModifiedTime 03/01/20 24 elect dariusz elisabet am No observ ation record ed. [email or web address] [facility] d [address] [place] [address], [phone] 03/01/2024 12:26:16 Result Notes None recorded. Procedures Surgical History None recorded. Imaging Results Imaging Date Name Status LastModified by Organization Details LastModified Time 03/01/2024 electrocardiogram completed [email or web address], [phone] 03/01/2024 12:26:16 Procedure Notes None recorded. Medical Equipment None Reported. Allergies Allergen ID Allergen Name Allergen Category Reaction Reaction Severity Criticality Documentation Date Start Date Code Code System Note Provider Name and Address Organization Details Recorded Time 8081 Bactrim medicatio n Not available Not available Not available 05/13/2024 27042 9 RxNorm Not Available [facility] - production 03:41:50 8082 doxycycli ne Not available Not available Not available Not available 05/13/2024 3640 RxNorm Not Available [facility] - production 4 03:41:50 Medications Name Sig Start Date Stop Date Status Note LastModified by Organization Details LastModified Time quetiapine 25 mg tablet TAKE 1 TABLET BY MOUTH AT BEDTIME active Not Available Not Available No t Available valacyclovir 1 gram tablet TAKE 1 TABLET BY MOUTH 3 TIMES A DAY FOR 7 DAYS active Not Available Not Available N ot Available prednisone 20 mg tablet TAKE 3 TABLETS BY MOUTH EVERY DAY FOR 6 DAYS active Not Available Not Available No t Available clonazepam 0.5 mg tablet TAKE 1 TABLET (0.5 MG) BY MOUTH 2 TIMES DAILY FOR 28 DAYS. active Not Available Not Available No t Available betamethason e, augmented 0.05 % topical cream PLEASE SEE ATTACHED FOR DETAILED DIRECTIONS active Not Available Not Available N ot Available gabapentin 300 mg capsule TAKE 1 CAPSULE BY MOUTH EVERY DAY AT BEDTIME FOR 30 DAYS active Not Available Not Available No t Available gabapentin 100 mg capsule TAKE 1 CAPSULE (100 MG) BY MOUTH ONCE PER DAY FOR 7 DAYS. active Not Available Not Available No t Available ketoconazole 2 % topical cream APPLY TO AFFECTED AREA TWICE A DAY active Not Available Not Available No t Available loratadine 10 mg tablet TAKE 1 TABLET BY MOUTH EVERY DAY active Not Available Not Available No t Available neomycin 3.5 mg/g-polymyx in B 10,000 unit/g-dexam eth 0.1 % eye oint APPLY TO BOTH EYELIDS ONCE PER DAY NEEDED. active Not Available Not Available No t Available Eliquis 5 mg tablet TAKE 1 TABLET BY MOUTH TWICE A DAY active Not Available Not Available No t Available PreserVision AREDS-2 250 mg-90 mg-40 mg-1 mg capsule TAKE 1 CAPSULE BY MOUTH TWICE A DAY active Not Available Not Available No t Available Readi-Cat 2 2 % (w/v) oral suspension TAKE 450 ML BY MOUTH 2 TIMES DAILY FOR 2 DOSES. active Not Available Not Available No t Available Vitals Date Recorded Heart rate Respiratory rate Oxygen saturation Oxygen saturation in Arterial blood by Pulse oximetry Body temperature Systolic blood pressure Diastolic blood pressure Provider Name and Address Organization Details Last Updated DateTime 4 81 /min 16 /min 97 % 97 % 98.1 [degF] 132 mm[Hg] 74 mm[Hg] Not Available [facility] - production 11:08:31 Social History None recorded. Functional Status None recorded. Mental Status None recorded. Family History Nothing Reported. Medical History No medical history recorded. Gynecological HistoryNo gynecological history recorded. Obstetrics History GPAL:G 0 P 0 0 0 0 Past Encounters Encounter ID Performer Location Encounter Start Date Encounter Closed Date Diagnosis/Indication Diagnosis SNOMED-CT Code Diagnosis ICD10 Code Diagnosis Note [id number] Damon Caldwell MD Main - [address] [address] 03/01/2024 11:08:29 03/01/2024 19:07:06 Chill [id number] R68.83 Lactic acidosis 16088416 E87.20 Health Concerns Section Related Observation LastModified by Organization Detai ls LastModified Time None Recorded Concern Status LastModified by Organization Details LastModified Time None Recorded Advance Directives Directive None Recorded Payers Encounter Date Sequence Insurance Name Policy Number Policy Graham Covered Member ID Graham Member ID Guarantor Name 03/01/2024 1 [facility] - DOS ON OR AFTER 2022 - DUAL ELIGIBLE - [employer] AND ONE [employer] (MEDICARE REPLACEMENT/ADV ANTAGE - HMO) December Daniel [id number] December Daniel Notes Date Note Type Note Provider Name and Address Organization Details Recorded Time 03/01/2024 text/html HPI: Member recently completed prednisone and valacyclovir for shingles. She then took one dose of seroquel and the next day she developed shakiness and gets very cold when she easts. She is reporting an abdominal fullness, early satiety and concerned about dehydration. She went to ED 02/25 for her symptoms and she said they are no findings. She did feel better after receiving IV fluids. She stopped the seroquel. She reports she is still feeling shaky and internally cold. She feels like she is very sensitive to medications and doesn't do well with changes. She would feel better for [facility] to do a well check on her Sat 03/01 and assess her for dehydration. .................... .................... .................... .................... .................... .................... .................... . [facility] Nurse Triage Notes (Dinorah Ramesh): Chief Complaints: Dehydration PMH: Hypertension Allergies: Bactrim, Doxycycline Other Allergies: codeine,PCN,oxycodon e,doxycycline,bactri m,amoxicillin,tramad ol,naproxen Comments: cRC RN DID NOT NEED FURTHER INFO Forest Technology Professor [facility] Address: [address] [place] [address], [place] [address], Geriatric Social Worker: Rinku Parra MD CLIA No.: [id number] Forest Technology Professor POC Test Results from Lucrecia Navarrete [facility] (11:25:37) pH: 7.457 pH units pCO2: 31.1 mmHg pO2: 45.5 mmHg Na: 140 mmol/L K: 4.0 mmol/L iCa: 1.08 mmol/L Cl: 108 mmol/L TCO2: 21.6 mEq/L Hct: 35 % Hb: 12.1 g/dL Glu: 293 mg/dL Lac: 4.28 mmol/L Cr: 0.85 mg/dL BUN: 11 mg/dL A Attachments uploaded as part of this test result can be found under Documents section. EKG (11:52:30) EKG test performed. Attachments uploaded as part of this test result can be found under Documents section. .................... .................... .................... .................... .................... .................... .................... . Forest Technology Professor Note From Lucrecia Navarrete: Pt reports feeling shaky, cold with a dull headache for x1 week. A&ox3, vs as noted, afebrile; denies cp, sob, abd pain at present, n/v/d, syncope, vision changes, or extremity pain. Pt was seen at ER 02/25 for same symptoms believing them to be a side effect of seroquel which she took once Sunday night; EKG and lab work at that time unremarkable per discharge paperwork. Pt reports poor po intake, last BM a week ago per pt, pt generally uncooperative with further investigation of symptoms. EKG as noted, epoc drawn as noted; lactate > 4. [facility] consulted, recommendation for not to be seen at ER which pt was agreeable to after speaking with [facility]. Pt to [facility] by local EMS. Forest Technology Professor Allergies: Bactrim, Doxycycline .................... .................... .................... .................... .................... .................... .................... . Disposition: Fulfilled Damon Caldwell MD [address] [facility],[address], [place], [address], [employer] 03/01/2024 14:30:36 OBGyn Episode No OBEpisode recorded.
--- OUTSIDE RECORDS SUMMARY | 2024-10-21 13:31 | XMS_ITS | Encounter Summary ---
Author Organization [employer] Address [address] [place] [address] [address] [place] [address] Care Team Providers Care Research Worker Kitchen Name Role Phone Suzi DISPUTE COORDINATOR Unavailable Unavailable Tika Esparza MD Primary Care Provider [phone] Viki Pineda Primary Care Provider [phone] Constance Mendez LCSW Unavailable Unav ailable Encounter Details Date Type Department Care Team (Late st Contact Info) Description 11/28/[address] [facility] MEDICAL [address] [place] [address] Provider, MD Jorge Social History Tobacco Use Types Packs/Day Years Used Date Smoking Tobacco: Former Cigarettes Smokeless Tobacco: Never Alcohol Use Standard Drinks/Week Comments Never 0 (1 standard drink = 0.6 oz pur e alcohol) Comments Unknown Sex and Gender Information Value Date Recorded Sex Assigned at Female 06/21/2022 2:24 PM EST Legal Sex Female 8:34 PM EDT Gender Identity Female 06/21/2022 2:24 PM EST Sexual Orientation Straight 06/21/2022 2: 24 PM EST COVID-19 Exposure Response Date Recorded In the last 10 days, have yo u been in contact with someone who was confirmed or suspected to have Coronavirus/COVID-19? No / Unsure 11/21/2022 1:54 PM EDT documented as of this encounter Plan of Treatment Upcoming Encounters Date Type Department Care Team (Late st Contact Info) Description 10/23/2024 11:00 AM EDT Office Visit [facility] MEDICAL [address] [place] [address] Myla Cisse FNP-Alonzo [address] [place] [address] 10/29/2024 10:00 AM EDT Office Visit [facility] OPTOMETRY [address] [place] [address] Laura Napoles, OD [address] [place] [address] 11/03/2024 11:00 AM EDT Office Visit [facility] OPTOMETRY [address] [place] [address] Laura Napoles, OD [address] [place] [address] documented as of this encounter Procedures Procedure Name Priority Date/Time Associated Diagnosis Comments HM MAMMOGRAPHY Routine 10/27/2022 documented in this encounter Results * Hm Mammography (10/27/2022) Anatomical Region Laterality Modality Other Historical Provider HEALTH MAINTENANCE Final Result documented in this encounter Visit Diagnoses Not on filedocumented in this encounter Additional Health Concerns Infection Onset Date Last Indicated Resolved Time MRSA 04/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
--- OUTSIDE RECORDS SUMMARY | 2024-10-21 13:31 | XMS_ITS ---
Author Name [facility] Organization Unknown History of Medication Use Medication Directions Dispensed Refills Start Date End Date [facility] TobraDex 0.3 %-0.1 % eye ointment APPLY 1/2 INCH RIBBON TO BOTH EYES TWO TIMES A DAY FOR UP TO 10 DAYS active Readi-Cat 2 2 % (w/v) oral suspension TAKE 450 ML BY MOUTH 2 TIMES DAILY FOR 2 DOSES. active Eliquis 5 mg tablet TAKE 1 TABLET BY MOUTH TWICE A DAY active Salonpas (lidocaine) 4 % topical patch PLEASE SEE ATTACHED FOR DETAILED DIRECTIONS active Encounters Encounter Type Encounter Reason Primary Diagnosis Location Date Ambulatory [facility] [place] 08/09/2023 Ambulatory [facility] [place] [facility] [place] 08/07/2023 Ambulatory [facility] [place] [facility] [place] 08/07/2023 Ambulatory [facility] [place] [facility] [place] 08/07/2023
== END 2024-10-21 11:26 | disposition home or self-care (01) ==
LOC: HO.HOS 11:05
PROVIDERS: PCP Nurse Practitioner Family; Visit Provider Orthopaedic Surgery
DX: M54.50 Low back pain, unspecified (principal); M79.605 Pain in left leg
CPT/HCPCS: 99213; G2211

== ENCOUNTER → 2024-10-21 11:06 | Outpatient (BNV) | payer MEDICARE, SELFPAY | PROVIDERS: Visit Provider Radiology Diagnostic Radiology | DX: M25.552 Pain in left hip (principal) | CPT/HCPCS: 73502 ==

== ENCOUNTER → 2024-11-03 14:39 | Outpatient (BNV) | payer OTHER, SELFPAY | PROVIDERS: Visit Provider Radiology Diagnostic Radiology | DX: M54.50 Low back pain, unspecified (principal) | CPT/HCPCS: 72148 ==

== ENCOUNTER 2024-11-03 14:41 | Outpatient (REF) | payer OTHER, SELFPAY ==
--- NOTE | ~2024-11-03 | MR_ITS ---
EXAMINATION: MR LUMBAR SPINE WITHOUT CONTRAST CLINICAL INFORMATION: Low back pain, unspecified. COMPARISON: None available. TECHNIQUE: MRI of the lumbar spine was obtained using routine sequences without contrast. FINDINGS: Last rib-bearing vertebra labeled T12. There is a dextroconvex rotoscoliosis apex at L2-3. There is a levoconvex curvature apex at T10-11. No bone marrow STIR signal abnormality. Bone marrow inhomogeneity throughout the axial skeleton. Multilevel marginal osteophyte formation and disc desiccation more conspicuous at L2-3. Conus medullaris ends at pedicle of L1 with normal signal. T12-L1: No disc herniation. Bilateral neuroforamina narrowing. L1-2: Bilateral facet joint hypertrophy. No disc herniation. No central spinal canal stenosis. Left neuroforamina narrowing secondary to scoliosis. L2-3: Broad-based disc bulging. Facet joint hypertrophy. No central spinal canal stenosis. Left neuroforamina narrowing secondary to scoliosis. L3-4: Broad-based disc bulging. Facet joint and ligamentum flavum hypertrophy. No central spinal canal stenosis. Left neuroforamina narrowing secondary to scoliosis. L4-5: Broad-based disc bulging. Facet joint and ligamentum flavum hypertrophy. No central spinal canal stenosis. Bilateral neuroforamina narrowing secondary to scoliosis. L5-S1: Prostate disc bulging. Facet joint and ligamentum flavum hypertrophy. No central spinal canal stenosis. Bilateral neuroforamina narrowing, right greater than left secondary to scoliosis and degenerative changes. No prevertebral compartment hematoma, mass or fluid collection. Volume loss of the left psoas muscle. Distal abdominal aorta diameter is 2.5 cm with the questionable left-sided semicircular plaque. MR/MR lumbar spine wo con IMPRESSION: Rotoscoliosis, thoracolumbar spine and resulting in multilevel mostly left-sided neuroforamina narrowing. No gross central spinal canal stenosis. Electronically signed by: Seven Dixon MD 11/04/2024 01:10 PM EDT
--- OUTSIDE RECORDS SUMMARY | 2024-11-03 14:44 | XMS_ITS | Encounter Summary ---
Author Organization [employer] Address [address] [place] [address] [address]t [address] Floor [place] [id number] Care Team Providers Care Ppa Teacher Name Role Phone Viki Pineda Primary Care Provider [phone] Constance Mendez LCSW Unavailable Unav ailable Encounter Details Date Type Department Care Team (Latest Contact Info) Description 10/29/2024 10:30 AM EDT Clinical Support [place] [facility] MEDICAL [address] [place] [address] Lucrecia Solis LPN Acute otitis externa of left ear, unspecified type Social History Tobacco Use Types Packs/Day Years Used Date Smoking Tobacco: Former Cigarettes 2 60 1 961 - 2020 Passive Smoke Exposure: Past Smokeless Tobacco: Never Alcohol Use Standard Drinks/Week Comments Never 0 (1 standard drink = 0.6 oz pur e alcohol) Alcohol Answer Date Recorded How often do you have a drink containing alcohol ? 0 10/23/2024 How many drinks containing a lcohol do you have on a typical day when you are drinking? 0 10/23/2024 How often do you have six or more drinks on one occasion? 0 10/23/2024 Depression Answer Date Recorded Patient Health Questionnaire-9 [...] on file documented as of this encounter Last Filed Vital Signs Vital Sign Reading Time Taken Comments Blood Pressure 152/96 10/29/2024 11:14 AM EDT Pulse 88 10/29/2024 11:14 AM EDT Temperature 36.3 ??C (97.4 ??F) 10/29/2024 11:14 AM E DT Respiratory Rate - - Oxygen Saturation 94% 10/29/2024 11:14 AM EDT Inhaled Oxygen Concentration - - Weight - - Height - - Body Mass Index - - documented in this encounter Plan of Treatment Upcoming Encounters Date Type Department Care Team (Late st Contact Info) Description 11/12/2024 10:00 AM EDT Office Visit [facility] MEDICAL [address] [place] [address] Myla Cisse FNP-C [address] [place] [address] 04/29/2025 11:00 AM EDT Office Visit [facility] OPTOMETRY [address] [place] [address] Laura Napoles, OD [address] [place] [address] documented as of this encounter Visit Diagnoses Diagnosis Acute otitis externa of left ear, unspecified type documented in this encounter Additional Health Concerns Infection Onset Date Last Indicated Resolved Time 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
--- OUTSIDE RECORDS SUMMARY | 2024-11-03 14:44 | XMS_ITS | Encounter Summary ---
Author Organization [employer] Address [address] [place] [address] 7[address] [place] [address] Care Team Providers Care Development Assistant Name Role Phone Viki Pineda NETWORK OPERATIONS MANAGER Primary Care Provider Constance Mendez GRAIN DISTRIBUTOR Unavailable Unav ailable Encounter Details Date Type Department Care Team (Late st Contact Info) Description 10/30/[address] [facility] MEDICAL [address] [place] [address] Jodee Curtis MD [address] [place] [address] Social History Tobacco Use Types Packs/Day Years Used Date Smoking Tobacco: Former Cigarettes 2 60 1 961 - 2021 Passive Smoke Exposure: Past Smokeless Tobacco: Never [...] encounter Miscellaneous Notes * Telephone Encounter - Cele Marie RN - 10/31/2024 9:09 AM EDT Spoke with patient. She is taking Clindamycin as prescribed. Stressed importance of not missing anydoses of medication and completing entire 10 day course. Pt. said the medicine is causing mild stomach upset. Recommend she take with food. Patient states there has been improvement to her ear. She denies fever, chills. Plan: Continue antibiotics Monitor. If develops fever, shaking chills and or ear doesn't continue to improve seek care in ER and/or call. Patient agrees to plan. * Telephone Encounter - Jodee Curtis MD - 10/30/2024 7:09 PM EDT Can nursing please check in with pt. She was seen 10/28 by provider and then again 10/29 for [place] for infected ear. She had declined going to ER on 10/29 but said she would if sx got worse. documented in this encounter Plan of Treatment Upcoming Encounters Date Type Department Care Team (Late st Contact Info) Description 11/12/2024 10:00 AM EDT Office Visit [facility] MEDICAL [address] [place] [address] Myla Cisse FNP-[place] [address] [place] [address] 04/29/2025 11:00 AM EDT Office Visit 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
--- OUTSIDE RECORDS SUMMARY | 2024-11-03 14:44 | XMS_ITS | Encounter Summary ---
Author Organization [employer] Address [address] [place] [address] [address] [place] [address] Care Team Providers Care Tool Smith Name Role Phone Viki Pineda OCC THERAPIST Primary Care Provider [phone] Constance Mendez LCSW Unavailable Unav ailable Reason for Visit * Reason Comments Follow-up Encounter Details Date Type Department Care Team (Late st Contact Info) Description 10/29/2024 10:00 AM EDT Office Visit [facility] OPTOMETRY [address] [place] [address] Laura Napoles, OD [address] [place] [address] 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 degeneration of both eyes (Primary Dx); Lamellar macular hole of right eye; Asteroid hyalosis of left eye; Open angle with borderline findings and low glaucoma risk in both eyes Social History Tobacco Use Types Packs/Day Years [...] your housing situation today? I have jigna sing 06/26/[address] you li [...] on file documented as of this encounter Progress Notes * Laura Napoles, OD - 10/29/2024 10:00 AM EDT Assessment/Plan Diagnoses and all orders for this visit: 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 degeneration of both eyes - Fundus Photos - OU - Both Eyes Contributing to dark vision when she wakes up at night. The condition appears progressed from previous testing. OCT shows no fluid or choroidal neovascular membrane (CNVM). Continue AREDs and UV protection (she quit smoking in 2020). Monitor in 6 mo or with retina if she seeks referral Lamellar macular hole of right eye Lamellar /cystic changes to fovea stable, eval with retina Asteroid hyalosis of left eye Visually significant. She states she would consider procedure if it can improve her vision. Will refer to retina for evaluation, pt states she will call to initiate referral once her ear infection resolves Open angle with borderline findings and low glaucoma risk in both eyes Low suspicion due to optic nerve appearance. Intraocular pressure (IOP) is good and no glaucomatousdefects on OCT nerve today (not billed). Monitor 6 mo documented in this encounter Plan of Treatment Upcoming Encounters Date Type Department Care Team (Late st Contact Info) Description 11/12/2024 10:00 AM EDT Office Visit [facility] MEDICAL [address] [place] [address] Myla Cisse, EVAN-Alonzo [address] [place] [address] 04/29/2025 11:00 AM EDT Office Visit [facility] OPTOMETRY [address] [place] [address] Laura Napoles, LUCERO [address] [place] [address] documented as of this encounter Procedures Procedure Name Priority Date/Time Associated Diagnosis Comments FUNDUS PHOTOS - OU - BOTH EYES Routine 10/29/2024 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 degeneration of both eyes documented in this encounter Results * Fundus Photos - OU - Both Eyes (10/29/2024) Impressions Laura Napoles, OD - 10/29/2024 Right eye (OD): diffuse drusen; establishing baseline Left eye (OS): diffuse drusen; note central media opacities from asteroid; establishing baseline Laura Napoles OD OPHTH PHOTOGRAPHY Final Result documented in this encounter Visit Diagnoses Diagnosis 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 degeneration of both eyes- Primary Lamellar macular hole of right eye Macular cyst, hole, or pseudohole of retina Asteroid hyalosis of left eye Crystalline deposits in vitreous Open angle with borderline findings and low glaucoma risk in both eyes documented in this encounter Additional Health Concerns Infection Onset Date Last Indicated Resolved Time MRSA 04/05/2024 04/09/2024 Assessment Noted Time PHQ-9 Depression Total Score: 1 01/31/20 24 2:51 PM EDT documented as of this encounter Care Teams Tool Smith Relationship Specialty Start Date End Date Viki Pineda FNP [address] [place] [address] PCP - General Family Medicine 01/22/23 Constance Mendez LCSW [employer] 06/22/23 documented as of this encounter
--- OUTSIDE RECORDS SUMMARY | 2024-11-03 14:44 | XMS_ITS | Encounter Summary ---
Author Organization [employer] Address [address] [place] [address] [address] [place] [address] Care Team Providers Care Project Structural Engineer Name Role Phone Edwin Viki GORDON Primary Care Provider [phone] Constance Mendez LCSW Unavailable Unav ailable Reason for Visit * Reason Onset Date Comments swollen eyes 10/27/2024 left ear pain and swelling 10/27/2024 Medication Reaction 10/27/2024 Encounter Details Date Type Department Care Team (Late st Contact Info) Description 10/27/2024 Telephone [facility] MEDICAL [address] [place] [address] Viki Pineda FNP [address] [place] [address] swollen eyes; left ear pain and swelling; Medication Reaction Social History Tobacco Use Types Packs/Day Years [...] encounter Miscellaneous Notes * Telephone Encounter - Charisse Shea LPN - 10/27/2024 9:32 AM EDT Spoke with pt. She reports she started using the flonase 3 days ago. The day after she started it her left ear became swollen and painful. Pt reports her ear is red and hurts to touch. Pt also reports her eyes were puffy when she woke up this morning. No appointments available today at [facility]. Offered appointment at [facility]. Pt declined stating she will only go to [facility]. Office visit scheduled for tomorrow. * Telephone Encounter - Gissell Yoon - 10/27/2024 8:41 AM EDT Patient called Patient started the following medication fluticasone (Flonase) 50 MCG/ACT nasal spray Patient reports after 3 days of use her left ear is swollen and in pain. Patient also reports eye swelling documented in this encounter Plan of Treatment Upcoming Encounters Date Type Department Care Team (Late st Contact Info) Description 11/12/2024 10:00 AM EDT Office Visit [facility] MEDICAL [address] [place] [address] Myla Cisse FNP-C [address] [place] [address] 04/29/2025 11:00 AM EDT Office Visit [facility] OPTOMETRY [address] [place] [address] Laura Napoles, OD [address] [place] [address] documented as of this encounter Visit Diagnoses Not on filedocumented in this encounter Additional Health Concerns Infection Onset Date Last Indicated Resolved Time MRSA 04/05/2024 04/09/2024 Assessment Noted Time PHQ-9 Depression Total Score: 1 01/31/20 24 2:51 PM EDT documented as of this encounter Care Teams Project Structural Engineer Relationship Specialty Start Date End Date Viki Pineda FNP [address] [place] [address] PCP - General Family Medicine 01/22/23 Constance Mendez LCSW [employer] 06/22/23 documented as of this encounter
--- OUTSIDE RECORDS SUMMARY | 2024-11-03 14:44 | XMS_ITS | Data Portability ---
Author Organization [employer] Address [address] [place] [id number] Care Team Providers Care Wall Covering Contractor Name Role Phone HIM CCA OTHER Assessment Encounter Date Assessment Date Assessment LastModified by Organization Details LastModified Time 03/01/2024 03/01/2024 As noted, we kelvin castaneda called to see this patient regarding concerns of chills, shakiness, dull BHATT, especially after eating, along with bloating and early satiety. Seen in ED for this recently as well. Evaluation in the field was performed by my civil preparedness coordinator colleague, as noted above, I provided real-time [...] pancreatitis (given Trigs), portal vein thrombosis, or LA needs to be excluded. The hyperglycemia in [...] need to exclude a serious intraabdominal process. [email or web address] Not available 03/01/2024 12:24:14 Plan of Treatment Reminders Order Date Submit Date Provider Last Modified By Organization Details Last Modified Time Details Appointments None recorded. Lab BMP, serum or plasma [address], [address] 08:05:53 Referral None recorded. Procedures None recorded. Surgeries None recorded. Imaging electrocard iogram 2023 024 [facility] [address], [address] 12:26:17 Medication Orders None recorded. Patient TargetsNo targets recorded. Patient InstructionsNo instructions recorded. Reason for Referral None Reported. Results Created Date Observation Date Name Description Value Unit Range Abnormal Flag Note LastModifiedBy Organization Detail LastModifiedTime 03/01/20 24 elect dariusz elisabet am No observ ation record ed. [email or web address] [facility] d [address] [place] [address], [phone] 03/01/2024 12:26:16 Result Notes None recorded. Procedures Surgical History None recorded. Imaging Results Imaging Date Name Status LastModified by Organization Details LastModified Time 03/01/2024 electrocardiogram completed [email or web address], [address] 03/01/2024 12:26:16 Procedure Notes None recorded. Medical Equipment None Reported. Allergies Allergen ID Allergen Name Allergen Category Reaction Reaction Severity Criticality Documentation Date Start Date Code Code System Note Provider Name and Address Organization Details Recorded Time 8081 Bactrim medicatio n Not available Not available Not available 05/13/2024 28108 9 RxNorm Not Available [facility] - production 03:41:50 8082 doxycycli ne Not available Not available Not available Not available 05/13/2024 3640 RxNorm Not Available [employer] - production 4 03:41:50 Medications Name Sig [...] [degF] 132 mm[Hg] 74 mm[Hg] Not Available [employer] - production 11:08:31 Social History None recorded. Functional Status None recorded. Mental Status None recorded. Family History Nothing Reported. Medical History No medical history recorded. Gynecological HistoryNo gynecological history recorded. Obstetrics History GPAL:G 0 P 0 0 0 0 Past Encounters Encounter ID Performer Location Encounter Start Date Encounter Closed Date Diagnosis/Indication Diagnosis SNOMED-CT Code Diagnosis ICD10 Code Diagnosis Note [id number] Damon Caldwell MD Main - [address] [phone] 03/01/2024 11:08:29 03/01/2024 19:07:06 Chill [id number] R68.83 Lactic acidosis 26215774 E87.20 Health Concerns Section Related Observation LastModified by Organization Detai ls LastModified Time None Recorded Concern Status LastModified by Organization Details LastModified Time None Recorded Advance Directives Directive None Recorded Payers Encounter Date Sequence Insurance Name Policy Number Policy Graham Covered Member ID Graham Member ID Guarantor Name 03/01/2024 1 [facility] - DOS ON OR AFTER 2022 - DUAL ELIGIBLE - NURSING HOME OPTIONS AND ONE C[employer] (MEDICARE REPLACEMENT/ADV ANTAGE - HMO) December Daniel [id number] December Daniel Notes Date Note Type Note [...] with changes. She would feel better for [facility] to do a well check on her Sat 03/01 and assess her for dehydration. .................... .................... .................... .................... .................... .................... .................... . CRC Nurse Triage Notes (Dinorah Ramesh): Chief Complaints: Dehydration PMH: Hypertension Allergies: Bactrim, Doxycycline Other Allergies: codeine,PCN,oxycodon e,doxycycline,bactri m,amoxicillin,tramad ol,naproxen Comments: cRC RN DID NOT NEED FURTHER INFO Payroll Tax Analyst Organization [facility] Address: [address] [place] [address], [place] [address], Security Guard: Rinku Parra MD CLIA No.: [id number] Payroll Tax Analyst POC Test Results from Lucrecia Navarrete [facility] (11:25:37) pH: 7.457 pH units [...] .................... .................... .................... .................... .................... .................... . Payroll Tax Analyst Note From Lucrecia Navarrete: Pt reports feeling [...] epoc drawn as noted; lactate > 4. [facility] consulted, recommendation for not to be seen at ER which pt was agreeable to after speaking with [facility]. Pt to [facility] by local EMS. Payroll Tax Analyst Allergies: Bactrim, Doxycycline .................... .................... .................... .................... .................... .................... .................... . Disposition: Fulfilled Damon Caldwell MD [address] [facility],[address], [place], [address], [employer] 03/01/2024 14:30:36 OBGyn Episode No OBEpisode recorded.
--- OUTSIDE RECORDS SUMMARY | 2024-11-03 14:45 | XMS_ITS | Clinical Summary ---
Author Organization [employer] Address [address] [place] [address] [address] [place] [address] Care Team Providers Care Reporting Analyst Name Role Phone Viki Pineda BALL WINDER Primary Care Provider [phone] Constance Mendez GRAB DRIVER Unavailable Unav ailable Allergies Active Allergy Reactions [...] 06/16/2022 Oxycodone-Acetaminophen 03/13/2023 Prednisone Other High 04/05/2024 Whitman like my inside was going to crawl out of me Propoxyphene Anaphylaxis High 08/23/2021 Sulfamethizole High 08/23/2021 Other reaction(s): Hives/Urticaria Sulfamethoxazole-Trimethop rim 06/16/2022 Other reaction(s): paralysis Tamsulosin Low 06/16/2022 Other reaction(s): nose bleeds Tetanus Antitoxin 03/13/2019 Bkcoljt-Twdroi-Ubnjo Pertussis Hives Low 06/16/2022 Other reaction(s): hives Tetanus-Diphtheria Toxoids Td Rash Low 08/23/2021 Other reaction(s): Rash/Dermatitis Tramadol Nausea,Vomiting Low 06/16/2022 Other reaction(s): nv Trimethoprim High 08/23/2021 Other reaction(s): Hives/Urticaria Medications * This document contains information received from the source organization and may not represent a complete record from that organization. albuterol 108 (90 Base) MCG/ACT inhaler 2 puffs. PRN 02/16/20 15 Active loratadine (Claritin) 10 MG tabletIndicati ons:Allergic rhinitis, unspecified seasonality, unspecified trigger TAKE 1 TABLET BY MOUTH EVERY DAY 90 tablet 4 09/14/19 24 Active apixaban (Eliquis) 5 MG tabletIndicati ons:Personal history of other venous thrombosis and embolism Take 1 tablet (5 mg) by mouth 2 times daily. 180 tablet 3 03/07/20 24 025 Active Multiple Vitamins-Thornton als (PreserVision AREDS 2+Multi Vit) capsule Take 1 capsule by mouth Once per day. 90 capsule 3 04/02/20 24 025 Active Bacillus Coagulans-Inul in (Probiotic) 1-250 BILLION-MG capsule Take 1 capsule by mouth Once per day. 90 capsule 3 04/29/20 24 025 Active ketoconazole (NIZOral) 2 % creamIndicatio ns:Rash Apply topically 2 times daily. to affected area 30 g 2 08/05/19 25 Active clonazePAM (KlonoPIN) 0.5 MG tabletIndicati ons:Anxiety with depression Take 1 tablet (0.5 mg) by mouth 2 times daily. 56 tablet 1 10/14/19 25 025 Active Glycerin-Hypro mellose-PEG 400 (Dry Eye Relief Drops) 0.2-0.2-1 % solution Administer 1 drop into affected eye(s) Once per day. Active fluticasone (Flonase) 50 MCG/ACT nasal sprayIndicatio ns:Dysfunction of both eustachian tubes,Seasonal allergic rhinitis, unspecified trigger Administer 2 sprays into each nostril Once per day. Shake gently. Before first use, prime pump. After use, clean tip and replace cap. 16 g 5 10/24/19 25 026 Active clindamycin (Cleocin) 300 MG capsuleIndicat ions:Skin infection Take 1 capsule (300 mg) by mouth 4 times daily for 10 days. 40 capsule 10/29/19 25 025 Active betamethasone, augmented, (Diprolene AF) 0.05 % cream PLEASE SEE ATTACHED FOR DETAILED DIRECTIONS 04/03/20 23 025 Discontinued barium sulfate (Readi-Cat 2) 2 % suspension TAKE 450 ML BY MOUTH 2 TIMES DAILY FOR 2 DOSES. 025 Discontinued mupirocin (Bactroban) 2 % ointment APPLY THIN LAYER IN NOSTRILS, BELLYBUTTON, AND BIOPSY SITE OF LEFT MANDAEN TWICE DAILY FOR 2 WEEKS 06/19/20 24 025 Discontinued clonazePAM (KlonoPIN) 0.5 MG tabletIndicati ons:Anxiety with depression Take 1 tablet (0.5 mg) by mouth 2 times daily for 28 days. 56 tablet 09/16/19 025 Discontinued(Re order (will not trigger notification to Pharmacy)) Active Problems Patient Care Coordination No te Formatting of this note migh t be different from the original. Pt was no show for her scheduled 5 p.m. telehealth appt this evening. Left message on machine asking her to pick up truck driver and would retry her in a few minutes Retried to call pat and again just went straight to voicemail. Left another message encouraged her to call the health center to reschedule her missed telehealth appointment this evening to discuss lab results. See message in chart from PCP important that patient meets with provider to discuss lab results and order followup labs. Problem Noted Date Diagnosed Date Skin infection 10/28/2024 Dysfunction of both eustachian tubes 10/23/2024 Acute otitis externa of left ear 08/08/2024 Overview (08/08/2024): Symptoms consistent with otitis externa. Unable to visualize L TM due to impacted cerumen. Hx of multiple ear surgeries, will not irrigate today. Will treat with ear drops, pt has used these in the past with very good effect. Needs new ENT - pt will call ENT office in [place] and let us know if she needs a referral. Mixed stress and urge urinary incontinence 04/24 Skin lesion of face 04/02/2024 Overview (06/26/2024): Flat, scabbed, flaky lesion to L jain without erythema. Skin surrounding lesion is dry [...] in person). Apparently her aide saw how Helena appeared earlier this week and enouraged her [...] course. Denies vision concerns. Lesion on L jain - some green/yellow discharge. No warmth/erythema. Pt has clean telfa dressing applied and was able to reapply after exam. Discussed infection and prevention of transmission. Reviewed when to call clinic, when to go to ER. Positive RPR test 02/07/2024 Overview (02/07/2024): Reports known hx of Syphilis, was treated in 1970's. Long-term use of high-risk medication 01/10/2024 Depression, recurrent 12/12/2023 Memory change 09/26/2023 [...] 03/02/2023 Overview (03/06/2024): Zoom therapy with Tyler ruth at [facility]. Rx for Klonopin - no maintenance medication. Discussed benzodiazepines as Emergency medications, and should not be used snf and as monotherapy. Ms. Sanchez is very resistant to this idea, has been taking Klonopin since 1989's and does not want to change. Had [...] 0.5mg BID. Will re-evaluate in 3 months. JD (generalized anxiety disorder) 06/23/2022 Abdominal aortic aneurysm without rupture 2021 Allergic rhinitis due to allergen 06/16/2022 Arthritis of left hip 06/16/2022 Asthma 06/16/2022 Overview (04/19/2023): Albuterol use once per month or less. Triggers: Allergies. Will continue to monitor. Bakers cyst 06/16/2022 Deep vein thrombosis (DVT) of left lower extremi ty 06/16/2022 Overview (06/26/2023): Engaged with vascular. On Eliquis. Had recent vein scan, pt reports L inguinal area had mass . CT Abd/Pelvis previously ordered - encouraged to have done as soon as possible. Dry eye syndrome of both eyes 06/16/2022 GERD (gastroesophageal reflux disease) High triglycerides 06/16/2022 History of left hip [...] back pain and shrinking . Seen by [facility] - no surgery needed but offered injections and Ms. Sanchez declined. Declines PT. Has GI upset with Naproxen. Can continue Lidocaine. Pt requested decrease of Gabapentin at previous visits - since decreasing has been having increased pain. Will increase Gabapentin back to 300mg at bedtime. 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 Dx'd 04/05/24, prescribed Keflex x 7 days. Finished antibiotics about 2 weeks ago. Wound is healing, no signs of recurrent infection. Antibiotic-associated diarrhea 04/29/2024 10/23/2024 Overview (04/29/2024): Patient with reports of intermittent diarrhea following Keflex 2 weeks ago. We will prescribe probiotic supplement. Reviewed medication, administration, and possible side effects. Type 2 diabetes mellitus wit hout complication, without long-term current use of insulin 02/07/2024 10/23/2024 Overview (06/26/2024): Lab Results Component Value Date HGBA1C 6.7 (H) 09/26/2023 Lab Results Component Value Date HGBA1C 6.0 06/26/2024 A1c at goal. Diet controlled. Very resistant to medications - not on JESSICA or Statin. Will continue current treatment plan at this time. Dysuria 09/26/2023 11/05/2023 Overview (09/26/2023): Ongoing x 1 month with frequency, without hematuria/flank pain/fever. In office urine without S/S infection. Will send for UA and culture. Rash 03/02/2023 10/23/2024 Overview (04/19/2023): Etiology unclear. Has resolved. Cervicalgia 06/16/2022 03/02/2023 Generalized anxiety disorder 06/16/2022 10/15/2023 Hepatitis C virus infection 06/16/2022 02/07/2024 Otitis externa 06/16/2022 12/24/2023 Pain, knee 06/16/2022 02/07/2024 Smoker 06/16/2022 08/22/2022 Overview (06/26/2023): 120 pack year history! Quit 2020. Vaginal spotting 06/16/2022 10/23/2024 Labral tear of left hip joint 04/03/2019 02/07/2024 Left hip pain 03/13/2019 02/07/2024 Encounters * This document contains information received from the source organization and may not represent a complete record from that organization. Date Type Department Care Team Description 10/30/2024 Telephone [facility] MEDICAL [address] [place] [id number] Jodee Curtis MD 10/29/2024 10:30 AM EDT Clinical Support [address] [address] Lucrecia Solis LPN Acute otitis externa of left ear, unspecified type 10/29/2024 10:00 AM EDT Office Visit [facility] OPTOMETRY [address] [place] [address] Laura Napoles OD 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 degeneration of both eyes (Primary Dx); Lamellar macular hole of right eye; Asteroid hyalosis of left eye; Open angle with borderline findings and low glaucoma risk in both eyes 10/28/2024 11:40 AM EDT Office Visit [facility] MEDICAL [address] [place] [address] Myla Curtis FNP-Alonzo Skin infection (Primary Dx) 10/28/2024 Travel 10/27/[address] [address] Viki Pineda FNP swollen eyes; left ear pain and swelling; Medication Reaction 10/24/2024 9:30 AM EDT Clinical Support [address] [address] Pratima Coe RN Dysuria 10/23/2024 11:00 AM EDT Office Visit [address] [address] Myla Curtis FNP-C Seasonal allergic rhinitis, unspecified trigger (Primary Dx); Long-term use of high-risk medication; Dysfunction of both eustachian tubes 10/23/2024 Travel 10/14/[address] [address] Viki Pineda FNP Prior Authorization (clonazepam) 10/13/[address] [address] Tika Esparza MD Anxiety with depression 10/13/[address] [address] Viki Pineda FNP Anxiety with depression 09/25/2024 11:30 AM EDT Office Visit [facility] OPTOMET[facility] [address] [place] [address] Laura Napoles, LUCERO 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 degeneration of both eyes (Primary Dx); Dry eye syndrome of both eyes; Screening for diabetes mellitus 09/25/[address] [address] Viki Pineda FNP eye issues 09/15/[address] [address] Tika Esparza MD Anxiety with depression 09/15/[address] [address] Viki Pineda FNP Anxiety with depression 08/20/[address] [address] Viki Pineda FNP Med Refill 08/18/2024 Refill [facility] MEDICAL [address] [place] [address] Viki Pineda FNP Anxiety with depression 08/08/2024 11:40 AM EST Office Visit [facility] MEDICAL [address] [place] [address] Viki Pineda FNP Acute otitis externa of left ear, unspecified type (Primary Dx) 08/05/2024 Refill [facility] MEDICAL [address] [place] [address] Viki Pineda FNP Rash (Primary Dx) from Last 3 Months Immunizations Name Administration [...] 10/29/2024 11:14 AM E DT Respiratory Rate 14 10/24/2024 10:22 AM EDT Oxygen Saturation 94% 10/29/2024 11:14 AM EDT Inhaled Oxygen Concentration - - Weight 60.3 kg (133 lb) 10/28/2024 11:53 AM EDT Height 152.4 cm (5') 10/28/2024 11:53 AM EDT Body Mass Index 25.97 10/28/2024 11:53 AM EDT Plan of Treatment Upcoming Encounters Date Type Department Care Team (Late st Contact Info) Description 11/12/2024 10:00 AM EDT Office Visit [facility] MEDICAL [address] [place] [address] Myla Cisse FNP-C [address] [place] [address] 04/29/2025 11:00 AM EDT Office Visit [facility] OPTOMETRY [address] [place] [address] Laura Napoles, OD [address] [place] [address] Health Maintenance Due Date Last Done Comments CT Colonography 1950 FIT DNA/Cologuard 1950 FIT 1950 FOBT 1950 Sigmoidoscopy 1950 Diabetes: Foot Exam 1960 Diabetes: Urine Protein Screening 1969 Pneumococcal Vaccine: [...] 04/02/2024, 01/31/20 24 SDOH Screening 06/26/2025 06/26/2024 Alcohol/Substance Use Screening 10/23/2025 10/23/2024 Tobacco Screening 10/29/2025 10/29/2024 Eye Exam 10/29/2026 10/29/2024, 10/14, 10/29/2024, Additional history exists Hepatitis B Vaccines Completed [...] nonexudative age-related macular degeneration of both eyes POCT URINALYSIS DIPSTICK Routine 10/24/2024 10:30 AM EDT Dysuria MICROSCOPIC EXAMINATION (NON ORDERABLE) Routine 10/24/2024 12:00 AM EDT URINALYSIS, COMPLETE, WITH REFLEX TO CULTURE Routine 10/24/2024 12:00 AM EDT Dysuria TOXASSURE?? FLEX 15, URINE Routine 10/23/2024 12:00 AM EDT Long-term use of high-risk medication POCT GLYCOSYLATED HEMOGLOBIN (HGB A1C) Routine 09/25/2024 4:10 PM EDT Screening for diabetes mellitus OCT, RETINA - OU - BOTH EYES Routine 09/25/2024 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 degeneration of both eyes LIPID PANEL, STANDARD Routine 03/04/2024 8:46 AM EDT HM MAMMOGRAPHY Routine 10/27/2022 COLONOSCOPY Routine 12/26/2012 12:00 AM EDT from Last 3 Months or Most Recently Relevant to Health Maintenance Results * Fundus Photos - OU - Both Eyes (10/29/2024) Impressions Laura Napoles, OD - 10/29/2024 Right eye (OD): diffuse drusen; establishing baseline Left eye (OS): diffuse drusen; note central media opacities from asteroid; establishing baseline us Laura Dony OD OPHTH PHOTOGRAPHY Final Result * POCT urinalysis dipstick manually resulted (10/24/2024 10:30 AM EDT) Color, UA Yellow Clarity, UA Clear Glucose, UA Negative Bilirubin, UA Negative Ketones, UA Negative Spec Grav, UA 1.020 Blood, UA Negative Negative, None Detected pH, UA 6.0 Protein, UA Negative Urobilinogen, UA 0.2 Leukocytes, UA Negative Negative, Rare, Trace Nitrite, UA Negative Negative, None Detected Urine 10/24/2024 10:3 0 AM EDT Tika Esparza MD POINT OF CARE TEST ENTER/EDIT OR DERABLES Final Result * Microscopic Examination (10/24/2024 12:00 AM EDT) WBC, Urine None seen 0 - 5 /hpf [facility] 1 RBC, Urine 0-2 0 - 2 /hpf [facility] 1 Epithelial Cells (non renal) 0-10 0 - 10 /hpf [facility] 1 Casts None seen None seen /lpf [facility] 1 Bacteria None seen None seen/Few [facility] 1 10/24/2024 10/24/2024 Comment:Urine, Clean Catch R e Narrative [facility] 1 - 10/25/2024 6:05 AM EDT Performed at: ??01 - [facility] [address] ??[id number] Medical Donation Professional: Malu Gaspar MD, Phone: ??[phone] Tika Esparza MD HISTORICAL/NON ORDERABLE LABS Fi nal Result [facility] * Urinalysis, Complete, with Reflex to Culture (10/24/2024 12:00 AM EDT) Specific [place] 1.016 1.005 - 1.030 [facility] 1 pH, Urine 6.0 5.0 - 7.5 [facility] 1 Color Yellow Yellow [facility] 1 Appearance Clear Clear [facility] 1 Leukocyte esterase, Urine Negative Negative [facility] 1 Protein,Urine Negative Negative/Tra ce [facility] 1 Glucose, Urine Negative [...] obtained by clean catch procedure / Unknown 10/24/2024 10/24/2024 Comment:Urine, Clean Catch R e Narrative [facility] 1 - 10/25/2024 6:05 AM EDT Performed at: ??01 - [facility] [address] ??[id number] Medical Donation Professional: Malu Gaspar MD, Phone: ??[phone] us Tika Esparza MD LAB URINE ORDERABLES Final Resul t [facility] * ToxAssure?? Flex 15, Urine (10/23/2024 12:00 AM EDT) Summary Report FINAL [facility] 1 Comment: [facility]oxAssure Flex 15, Ur Test ? Result ? Flag ? Units Drug Present and Declared for Prescription Verification ??7-aminoclonazepam ?138 ?EXPECTED ?? ng/mg creat ?? 7-aminoclonazepam is an expected metabolite of clonazepam. Source ?? of clonazepam is a scheduled prescription medication. Test ?Result ?Flag ?? Units ?Ref Range ??Creatinine ?146 ?mg/dL ?>=20 Declared Medications: The flagging and interpretation on this report are based on the following declared medications. ??Unexpected results may arise from inaccuracies in the declared medications. Note: The testing scope of this panel includes these medications: Clonazepam For clinical consultation, please call . Creatinine, Urine 146 mg/dL [facility] Comment:REFERENCE RANGE: Ref Range>=20 Amphetamines IA, Urine Negative CUTOFF:30 0 ng/mL [facility] 1 Benzodiazepines, Urine +POSITIVE+ [facility] 1 Diazepam, Urine Not Detected ng/mg creat [facility] 1 Desmethyldiazepam, Urine Not Detected ng/mg creat [facility] 1 Oxazepam, Urine Not Detected ng/mg creat [facility] 1 Temazepam, Urine Not Detected ng/mg creat [facility] 1 Comment: Expected metabolism of benzodiazepine class drugs: Parent Drug ? Detected Metabolites ? Diazepam: ? Desmethyldiazepam, Temazepam, Oxazepam Chlordiazepoxide: Desmethyldiazepam, Oxazepam Clorazepate: ?Desmethyldiazepam, Oxazepam Halazepam: ?Desmethyldiazepam, Oxazepam Temazepam: ?Oxazepam Oxazepam: ? None Alprazolam, Urine Not Detected ng/mg creat [facility] 1 Alpha-hydroxyalpra zolam, Urine Not Detected ng/mg creat [facility] 1 Desalkylflurazepam , Urine Not Detected ng/mg creat [facility] 1 Lorazepam, Urine Not Detected ng/mg creat [facility] 1 Alpha-hydroxytriaz olam, Urine Not Detected ng/mg creat [facility] 1 Clonazepam, Urine Not Detected ng/mg creat [facility] 1 7-aminoclonazepam, Urine 138 ng/mg creat [facility] 1 Midazolam, Urine Not Detected ng/mg creat [facility] 1 Alpha-hydroxymidaz olam, Urine Not Detected ng/mg creat [facility] 1 Flunitrazepam, Urine Not Detected ng/mg creat [facility] 1 Desmethylflunitraz epam, Urine Not Detected ng/mg creat [facility] 1 Cocaine Metabolite IA, Urine Negative CUTOFF:15 0 ng/mL [facility] 1 ETHYL ALCOHOL Enzymatic, Urine Negative CUTOFF:0. 020 g/dL [facility] 1 CANNABINOIDS IA, Urine Negative CUTOFF:20 ng/mL [facility] 1 6-Acetylmorphine IA, Urine Negative CUTOFF:10 ng/mL [facility] 1 OPIATE CLASS IA, Urine Negative CUTOFF:10 0 ng/mL [facility] 1 OXYCODONE CLASS IA, Urine Negative CUTOFF:10 0 ng/mL [facility] 1 Methadone IA, Urine Negative CUTOFF:10 0 ng/mL [facility] 1 METHADONE MTB IA, Urine Negative CUTOFF:10 0 ng/mL [facility] 1 BUPRENORPHINE, Urine Negative [facility] 1 Buprenorphine, Urine Not Detected ng/mg creat [facility] 1 Norbuprenorphine, Urine Not Detected ng/mg creat [facility] 1 FENTANYL & ANALOGUES, Urine Negative [facility] 1 Fentanyl, Urine Not Detected ng/mg creat [facility] 1 Norfentanyl, Urine Not Detected ng/mg creat [facility] 1 TAPENTADOL IA, Urine Negative CUTOFF:20 0 ng/mL [facility] 1 Tramadol IA, Urine Negative CUTOFF:20 0 ng/mL [facility] 1 Barbiturates IA, Urine Negative CUTOFF:20 0 ng/mL [facility] 1 Phencyclidine (PCP) IA, urine Negative CUTOFF:25 ng/mL [facility] 1 Urine (Urine, Random) 10/23/2024 10/23/2024 Comment:Urine, Random Releas e Narrative [facility] 1 - 10/28/2024 4:05 PM EDT Performed at: ??01 - [facility] [address] [place] [address] ??[id number] Medical Donation Professional: Eva Arango [facility], Phone: ??[phone] Myla DAMONP-C LAB URINE ORDERABL ES Final Result [facility] * POCT glycosylated hemoglobin (Hgb A1c) (09/25/2024 [...] AM EDT Performed at: ??01 - [facility] [address] ??[id number] Medical Donation Professional: Malu Gaspar MD, Phone: ??[phone] Majo Mccall NP LAB BLOOD ORDERABLES Final Resul t [facility] * Hm Mammography (10/27/2022) Anatomical Region Laterality Modality Other Historical Provider HEALTH MAINTENANCE Final Result * COLONSCOPY (12/26/2012 12:00 AM EDT) Anatomical Region Laterality Modality Endoscopy 12/26/2012 Narrative 12/26/2012 12:00 AM EDT Refer to [facility] for result details Legacy Procedure: COLONSCOPY Procedure Note ProviderJorge MD - 11/09/2022 Refer to [facility] for result details Legacy Procedure: COLONSCOPY Historical Provider ENDOSCOPY PROCEDURE ORDER TIO Final Result from Last 3 Months or Most Recently Relevant to Health Maintenance Additional Health Concerns Infection Onset Date Last Indicated MRSA 04/05/2024 04/09/2024 Insurance [facility] RETIREMENT OPTIONS (O D-SNP) [facility] RETIREMENT OPTIONS (O D-SNP) [facility] Advance Directives Documents on File Type Date Recorded Patient Stenotype Machine Operator Expl anation HealthCare Proxy 08/13/2023 2:41 PM HCP [facility] form 08/13/2023 2:40 PM [facility] Care Teams Reporting Analyst Relationship Specialty Start Date End Date Viki Pineda FNP [address] [place] [address] PCP - General Family Medicine 01/22/23 Constance Mendez LCSW Patient Registration Manager Behavioral Health 06/22/23
--- OUTSIDE RECORDS SUMMARY | 2024-11-03 14:45 | XMS_ITS | Encounter Summary ---
Author Organization [employer] Address [address] [place] [address] [address] [place] [address] Care Team Providers Care Skoog Operator Name Role Phone Viki Pineda Primary Care Provider [phone] Constance Mendez LCSW Unavailable Unav ailable Reason for Visit * Reason Comments Med Refill Encounter Details Date Type Department Care Team (Late st Contact Info) Description 10/13/2024 Refill [facility] [address] [place] [address] Tika Esparza MD [address] [place] [address] Anxiety with depression Social History Tobacco Use [...] Description 11/12/2024 10:00 AM EDT Office Visit [facility] MEDICAL [address] [place] [address] Myla Cisse FNP-C [address] [place] [address] 04/29/2025 11:00 AM EDT Office Visit [facility] OPTOMETRY [address] [place] [address] Laura Napoles, OD [address] [place] [address] documented as of this encounter Visit Diagnoses Diagnosis Anxiety with depression documented in this encounter Additional Health Concerns Infection Onset Date Last Indicated Resolved Time MRSA 04/05/2024 04/09/2024 Assessment Noted Time PHQ-9 Depression Total Score: 1 01/31/20 24 2:51 PM EDT documented as of this encounter Care Teams Skoog Operator Relationship Specialty Start Date End Date Viki Pineda FNP [address] [place] [address] PCP - General Family Medicine 01/22/23 Constance Mendez LCSW Patient Safety Sitter Behavioral Health 06/22/23 documented as of this encounter
--- OUTSIDE RECORDS SUMMARY | 2024-11-03 14:45 | XMS_ITS | Encounter Summary ---
Author Organization [employer] Address [address] [facility] 7t [place] [address] Care Team Providers Care Associate Spa Director Name Role Phone Viki Pineda Primary Care Provider [phone] Constance MendezW Unavailable Unav ailable Encounter Details Date Type Department Care Team (Late st Contact Info) Description 05/29/2024 Orders Only [facility] [address] [place] [address] Viki Pineda FNP [address] [place] [address] Social History Tobacco Use Types Packs/Day Years [...] Description 11/12/2024 10:00 AM EDT Office Visit [facility] MEDICAL [address] [place] [address] Myla Cisse, PLOW AND BORING MACHINE TENDER-C [address] [place] [address] 04/29/2025 11:00 AM EDT Office Visit [facility] OPTOMETRY [address] [place] [address] Dony Laura, OD [address] [place] [address] documented as of this encounter Procedures Procedure Name Priority Date/Time Associated Diagnosis Comments COMPREHENSIVE METABOLIC PANEL Routine 05/28/2024 9:[address] ABDOMEN PELVIS W CONTRAST Routine 05/28/2024 9:04 AM EST ECG 12-LEAD Routine 05/28/2024 9:03 AM EST documented in this encounter Results * Comprehensive Metabolic Panel (05/28/2024 9:05 AM EST) Blood Venous blood specimen / Unknown us Viki GORDON LAB BLOOD ORDERABLES Final Resul t * CT Abdomen Pelvis w/ Contrast (05/28/2024 9:04 AM EST) Anatomical Region Laterality Modality Body, Pelvis, Abdomen Computed T omography us Viki GORDON IMG CT PROCEDURES Final Result * ECG 12 lead (05/28/2024 9:03 AM EST) us Viki GORDON ECG ORDERABLES Final Result documented in this encounter Visit Diagnoses Not on filedocumented in this encounter Additional Health Concerns Infection Onset Date Last Indicated Resolved Time MRSA 04/05/2024 04/09/2024 Assessment Noted Time PHQ-9 Depression Total Score: 1 01/31/20 24 2:51 PM EDT documented as of this encounter Care Teams Associate Spa Director Relationship Specialty Start Date End Date Viki Pineda FNP [address] [place] [address] PCP - General Family Medicine 01/22/23 Constance Mendez, ETTA Garbage Man Behavioral Health 06/22/23 documented as of this encounter
--- OUTSIDE RECORDS SUMMARY | 2024-11-03 14:45 | XMS_ITS | Encounter Summary ---
Author Organization [employer] Address [address] [place] [address] 7t [place] [address] Care Team Providers Care Slurry Control Tender Name Role Phone Viki Pineda Primary Care Provider [phone] Constance Mendez LCSW Unavailable Unav ailable Reason for Visit * Reason Comments Med Refill Encounter Details Date Type Department Care Team (Late st Contact Info) Description 02/12/2024 Refill [facility] MED[facility] [address] [place] [address] Viki Pineda FNP [address] [place] [address] Anxiety with depression Social History Tobacco Use [...] Description 11/12/2024 10:00 AM EDT Office Visit [address] [address] Myla Cisse FNP-C [address] [place] [address] 04/29/2025 11:00 AM EDT Office Visit [facility] OPTOMETRY [address] [place] [address] Laura Napoles, OD [address] [place] [address] documented as of this encounter Visit Diagnoses Diagnosis Anxiety with depression documented in this encounter Additional Health Concerns Infection Onset Date Last Indicated Resolved Time MRSA 04/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
--- OUTSIDE RECORDS SUMMARY | 2024-11-03 14:45 | XMS_ITS | Encounter Summary ---
Author Organization [employer] Address [address] [facility] 7t [place] [address] Care Team Providers Care Virology Teacher Name Role Phone Viki Pineda Primary Care Provider [phone] Constance MendezW Unavailable Unav ailable Encounter Details Date Type Department Care Team (Late st Contact Info) Description 03/07/2024 Orders Only [facility] [address] [place] [address] Viki Pineda FNP [address] [place] [address] Social History Tobacco Use Types Packs/Day Years [...] Description 11/12/2024 10:00 AM EDT Office Visit [facility] MED[facility] [address] [place] [address] Myla Cisse FNP-C [address] [place] [address] 04/29/2025 11:00 AM EDT Office Visit [facility] OPTOMETRY [address] [place] [address] Laura Napoles OD [address] [place] [address] documented as of this encounter Procedures Procedure [...] documented as of this encounter Care Teams Virology Teacher Relationship Specialty Start Date End Date Viki Pineda FNP [address] [place] [address] PCP - General Family Medicine 01/22/23 Constance Mendez LCSW Data Support Specialist Behavioral Health 06/22/23 documented as of this encounter
--- OUTSIDE RECORDS SUMMARY | 2024-11-03 14:45 | XMS_ITS | Encounter Summary ---
Author Organization [employer] Address [address] [facility] 7t [place] [address] Care Team Providers Care Bottling Supervisor Name Role Phone Edwin Viki GORDON Primary Care Provider [phone] Constance MendezW Unavailable Unav ailable Encounter Details Date Type Department Care Team (Late st Contact Info) Description 04/09/2024 Orders Only [facility] [address] [place] [address] Viki Pineda FNP [address] [place] [address] Social History Tobacco Use Types Packs/Day Years [...] Description 11/12/2024 10:00 AM EDT Office Visit [facility] MEDICAL [address] [place] [address] Myla Cisse, EVAN-C [address] [place] [address] 04/29/2025 11:00 AM EDT Office Visit [facility] OPTOMETRY [address] [place] [address] Laura Napoles, OD [address] [place] [address] documented as of this encounter Procedures Procedure [...] documented as of this encounter Care Teams Bottling Supervisor Relationship Specialty Start Date End Date Viki Pineda FNP [address] [place] [address] PCP - General Family Medicine 01/22/23 Constance Mendez LCSW Herpetologist Behavioral Health 06/22/23 documented as of this encounter
--- OUTSIDE RECORDS SUMMARY | 2024-11-03 14:45 | XMS_ITS | Encounter Summary ---
Author Organization [employer] Address [address] [place] [address] 7 [place] [address] Care Team Providers Care Nurseryman Assistant Name Role Phone Suzi Simmons AIRFLIGHT ATTENDANTS SUPERVISOR Unavailable Unavailable Viki Pineda Primary Care Provider [phone] Constance Mendez LCSW Unavailable Unav ailable Reason for Visit * Reason Comments Med Refill Encounter Details Date Type Department Care Team (Late st Contact Info) Description 02/21/2023 Refill [facility] MEDICAL [address] [place] [address] Tika Esparza MD [address] [place] [address] Peripheral vascular disease, unspecified (CMS/HCC) Social History [...] Description 11/12/2024 10:00 AM EDT Office Visit [facility] MEDICAL [address] [place] [address] Myla Cisse FNP-C [address] [place] [address] 04/29/2025 11:00 AM EDT Office Visit [facility] OPTOMETRY [address] [place] [address] Laura Napoles, OD [address] [place] [address] documented as of this encounter Visit Diagnoses Diagnosis Peripheral vascular disease, unspecified (CMS/HCC) Peripheral vascular disease, unspecified documented in this encounter Additional Health Concerns Infection Onset Date Last Indicated Resolved Time MRSA 04/05/2024 04/09/2024 Assessment Noted Time PHQ-9 Depression Total Score: 5 02/17/20 23 7:33 AM EDT documented as of this encounter Care Teams Nurseryman Assistant Relationship Specialty Start Date End Date Viki Pineda FNP [address] [place] [address] PCP - General Family Medicine 01/22/23 Suzi Simmons LICSW Manager [employer] [facility]al [facility] 06/23/22 07/22/23 Constance Mendez LCSW Manager [employer] [facility]al [facility] 06/22/23 documented as of this encounter
--- OUTSIDE RECORDS SUMMARY | 2024-11-03 14:45 | XMS_ITS | Encounter Summary ---
Author Organization [employer] Address [address] [place] [address] 7t [place] [address] Care Team Providers Care Retail Experience Specialist Name Role Phone Viki Pineda Primary Care Provider [phone] Constance Mendez LCSW Unavailable Unav ailable Reason for Visit * Reason Onset Date Comments eye issues 09/25/2024 Encounter Details Date Type Department Care Team (Late st Contact Info) Description 09/25/2024 Telephone [facility] MEDICAL [address] [place] [address] Viki Pineda FNP [address] [place] [address] eye issues Social History Tobacco Use Types [...] Description 11/12/2024 10:00 AM EDT Office Visit [facility] MEDICAL [address] [place] [address] Myla Cisse FNP-C [address] [place] [address] 04/29/2025 11:00 AM EDT Office Visit [facility] OPTOMETRY [address] [place] [address] Laura Napoles, OD [address] [place] [address] documented as of this encounter Visit Diagnoses Not on filedocumented in this encounter Additional Health Concerns Infection Onset Date Last Indicated Resolved Time MRSA 04/05/2024 04/09/2024 Assessment Noted Time PHQ-9 Depression Total Score: 1 01/31/20 24 2:51 PM EDT documented as of this encounter Care Teams Retail Experience Specialist Relationship Specialty Start Date End Date Viki Pineda FNP [address] [place] [address] PCP - General Family Medicine 01/22/23 Constance Mendez LCSW Auto Parts Manager Behavioral Health 06/22/23 documented as of this encounter
--- OUTSIDE RECORDS SUMMARY | 2024-11-03 14:45 | XMS_ITS | Clinical Summary ---
Author Organization [facility] Address [address] [place] [address] Care Team Providers Care Real Estate Representative Name Role Phone Tika Esparza MD Primary Care Provider [phone] Allergies Active Allergy Reactions Criticality Noted Date [...] age to complete this topic Care Teams Real Estate Representative Relationship Specialty Start Date End Date Tika Esparza MD [address] [place] [address] PCP - General Internal Medicine 03/13/19
--- OUTSIDE RECORDS SUMMARY | 2024-11-03 14:45 | XMS_ITS | Encounter Summary ---
Author Organization [employer] Address [address] [facility] 7t [place] [address] Care Team Providers Care Medical Office Technician Name Role Phone Viki Pineda BEADING MACHINE OPERATOR Primary Care Provider [phone] Constance Mendez LCSW Unavailable Unav ailable Reason for Visit * Reason Onset Date Comments prednisone, starting new med 02/14/2024 Encounter Details Date Type Department Care Team (Late st Contact Info) Description 02/14/2024 Telephone [facility] MEDICAL [address] [place] [address] Anneliese Tapia RN prednisone, starting new med [...] the past 12 months, has t he [employer], gas, oil or water [employer] threatened to shut off services in your [...] Visit [facility] MEDICAL [address] [place] [address] Myla Cisse FNP-C [address] [place] [address] 04/29/2025 11:00 AM EDT Office Visit [facility] OPTOMETRY [address] [place] [address] Laura Napoles, OD [address] [place] [address] documented as of this encounter Visit Diagnoses Not on filedocumented in this encounter Additional Health Concerns Infection Onset Date Last Indicated Resolved Time MRSA 04/05/2024 04/09/2024 Assessment Noted Time PHQ-9 Depression Total Score: 1 01/31/20 24 2:51 PM EDT documented as of this encounter Care Teams Medical Office Technician Relationship Specialty Start Date End Date Viki Pineda FNP [address] [place] [address] PCP - General Family Medicine 01/22/23 Constance Mendez LCSW Ballet Soloist Behavioral Health 06/22/23 documented as of this encounter
--- OUTSIDE RECORDS SUMMARY | 2024-11-03 14:45 | XMS_ITS | Encounter Summary ---
Author Organization [employer] Address [address] [place] [address] 7t [place] [address] Care Team Providers Care Joinery Patternmaker Name Role Phone Suzi GEOPHYSICAL PROSPECTING SURVEYOR Unavailable Unavailable Tika Esparza MD Primary Care Provider [phone] Viki Pineda Primary Care Provider [phone] Constance Mendez LCSW Unavailable Unav ailable Encounter Details Date Type Department Care Team (Late st Contact Info) Description 11/28/2022 Orders Only [facility] MEDICAL [address] [place] [address] Provider, MD Jorge Social History Tobacco Use [...] Description 11/12/2024 10:00 AM EDT Office Visit [facility] MEDICAL [address] [place] [address] Myla iCsse FNP-Alonzo [address] [place] [address] 04/29/2025 11:00 AM EDT Office Visit [facility] OPTOMETRY [address] [place] [address] Laura Napoles OD [address] [place] [address] documented as of this encounter Procedures Procedure Name Priority Date/Time Associated Diagnosis Comments HM MAMMOGRAPHY Routine 10/27/2022 documented in this encounter Results * Hm Mammography (10/27/2022) Anatomical Region Laterality Modality Other us Historical Provider HEALTH MAINTENANCE Final Result documented in this encounter Visit Diagnoses Not on filedocumented in this encounter Additional Health Concerns Infection Onset Date Last Indicated Resolved Time MRSA 04/05/2024 04/09/2024 documented as of this encounter Care Teams Joinery Patternmaker Relationship Specialty Start Date End Date Tika Esparza MD [address] [place] [address] PCP - General Internal Medicine 08/15/22 01/21/23 Viki Pineda FNP [address] [place] [address] PCP - General Family Medicine 01/22/23 Suzi Simmons LICSW Fashion Director Party Plan Sales Behavioral Health 06/23/22 07/22/23 Constance Mendez LCSW Fashion Director Party Plan Sales Behavioral Health 06/22/23 documented as of this encounter
--- OUTSIDE RECORDS SUMMARY | 2024-11-03 14:46 | XMS_ITS | Encounter Summary ---
Author Organization [employer] Address [address] [place] [address] 7t [place] [address] Care Team Providers Care Fabric Worker Supervisor Name Role Phone Edwin Viki GORDON Primary Care Provider [phone] Constance MendezW Unavailable Unav ailable Encounter Details Date Type Department Care Team (Late st Contact Info) Description 12/31/2023 Orders Only [facility] [address] [place] [address] Viki Pineda FNP [address] [place] [address] Social History Tobacco Use Types Packs/Day Years [...] Description 11/12/2024 10:00 AM EDT Office Visit [facility] MEDICAL [address] [place] [address] Myla Cisse FNP-C [address] [place] [address] 04/29/2025 11:00 AM EDT Office Visit [facility] OPTOMETRY [address] [place] [address] Dony Laura, OD [address] [place] [address] documented as of this encounter Procedures Procedure [...] Modality Spine, C-spine Computed Tomogra phy Viki GORDON IM CT PROCEDURES Final Result * CT HEAD WO CONTRAST (12/29/2023 11:00 AM EDT) Anatomical Region Laterality Modality Computed Tomogra phy Viki GORDON IM CT PROCEDURES Final Result * XR Toes 2+ Left (12/29/2023 10:59 AM EDT) Anatomical Region Laterality Modality Lower Extremities, Toes Left Radiogra phic Imaging Viki GORDON IMG XR PROCEDURES Final Result documented in this encounter Visit Diagnoses Not on filedocumented in this encounter Additional Health Concerns Infection Onset Date Last Indicated Resolved Time MRSA 04/05/2024 04/09/2024 Assessment Noted Time PHQ-9 Depression Total Score: 10 06/22/ 023 11:27 AM EST documented as of this encounter Care Teams Fabric Worker Supervisor Relationship Specialty Start Date End Date Viki Pineda FNP [address] [place] [address] PCP - General Family Medicine 01/22/23 Constance Mendez LCSW [place] [facility] 06/22/23 documented as of this encounter
--- OUTSIDE RECORDS SUMMARY | 2024-11-03 14:46 | XMS_ITS | Encounter Summary ---
Author Organization [employer] Address [address] [place] [address] 7t [place] [address] Care Team Providers Care Veneer Taping Machine Operator Name Role Phone Viki Pineda Primary Care Provider [phone] Constance Mendez LCSW Unavailable Unav ailable Reason for Visit * Reason Onset Date Comments Med Refill 11/27/2023 Encounter Details Date Type Department Care Team (Late st Contact Info) Description 11/27/2023 Telephone [place] [facility] MEDICAL [address] [place] [address] Viki Pineda FNP [address] [place] [address] Med Refill Social History Tobacco Use Types [...] med refill gabapentin (Neurontin) 300 MG capsule [[id number]] clonazePAM (KlonoPIN) 0.5 MG tablet [[id number]] Pharmacy [facility]/pharmacy #[id number] [facility] [address] documented in this encounter Plan of Treatment Upcoming Encounters Date Type Department Care Team (Late st Contact Info) Description 11/12/2024 10:00 AM EDT Office Visit [facility] MEDICAL [address] [place] [address] Myla Cisse FNP-C [address] [place] [address] 04/29/2025 11:00 AM EDT Office Visit [facility] OPTOMETRY [address] [place] [address] Laura Napoles, OD [address] [place] [address] documented as of this encounter Visit Diagnoses Not on filedocumented in this encounter Additional Health Concerns Infection Onset Date Last Indicated Resolved Time MRSA 04/05/2024 04/09/2024 Assessment Noted Time PHQ-9 Depression Total Score: 10 023 11:27 AM EST documented as of this encounter Care Teams Veneer Taping Machine Operator Relationship Specialty Start Date End Date Viki Pineda FNP [address] [place] [address] PCP - General Family Medicine 01/22/23 Constance Mendez LCSW [employer] Behavioral Health 06/22/23 documented as of this encounter
--- OUTSIDE RECORDS SUMMARY | 2024-11-03 14:46 | XMS_ITS | Clinical Summary ---
Author Organization [address] [place] [address] Address [address] [place] [address] Phone Care Team Providers Care Research Biostatistician Name Role Phone Tika Esparza MD Primary Care Provider [phone] Allergies Active Allergy Reactions Criticality Noted Date [...] syndrome 08/25/2021 Anxiety 08/23/2021 COPD (chronic obstructive pu lmonary disease) ([facility] V24, [facility] V28) 08/23/2021 Gait instability 08/23/2021 Tobacco dependence 08/23/2021 Immunizations Name Administration Dates Next Due Pfizer SARS-CoV-2 COVID-19, mRNA, LNP-S, preservative free 08/03/2021,01/12/2021 Surgical History Surgery Date Site/Laterality Comments OTHER SURGICAL HISTORY 08/16/2021 PROCEDURE: MS TRLML BALO ANGIOP OPEN/PERQ W/IMG S&I 1ST VEIN OTHER SURGICAL HISTORY 08/16/2021 PROCEDURE: MS TRLML BALO ANGIOP OPEN/PERQ W/IMG S&I ADDL VEIN; COMMENT: x2 OTHER SURGICAL HISTORY 08/16/2021 PROCEDURE: MS SEC PRQ TRLUML THRMBC N-CORONARY N-INTRACRANIAL OTHER SURGICAL HISTORY 08/16/2021 PROCEDURE: MS INTRAVASCULAR US NONCORONARY RS&I INTIAL VESSEL OTHER SURGICAL HISTORY 08/16/2021 PROCEDURE: MS INTRAVASCULAR US NONCORONARY RS&I ADDL VESSEL; COMMENT: x4 OTHER SURGICAL HISTORY 08/16/2021 PROCEDURE: ULTRASOUND GUIDANCE FOR VASCULAR AC OTHER SURGICAL HISTORY 05/09/2022 PROCEDURE: MS NJX PX XTR VNGRPH W/INTRO NDL/INTRACATH OTHER [...] PM EST Office Visit [facility] [address] [place] [id number] Sanam Urena PA [address] [facility] [address] [place] [address] Health Maintenance Due Date Last Done Comments [...] patient's age to complete this topic Insurance [facility] MEDICARE Member Subscriber Plan / Payer (Ef fective 2020-Present) Name:Helena Sanchez Relation to Subscriber:Self Name:Helena Sanchez Payer ID:[id number] Group ID:[id number] Type:Not on file Address: [facility] [address] [id number] Advance Directives Documents on File Type Date Recorded Patient Shipmaster Expl anation Health Care Decision (hx) 06/03/2021 [...] 06/03/2021 AD XAVIER DIRECTIVE Care Teams Research Biostatistician Relationship Specialty Start Date End Date Tika Esparza MD [address] [place] [address] PCP - General Internal Medicine 06/16/21
== END 2024-11-03 14:42 | disposition home or self-care (01) ==
LOC: HO.MRI 14:41
PROVIDERS: Visit Provider Orthopaedic Surgery
DX: M54.50 Low back pain, unspecified (principal); M79.605 Pain in left leg
CPT/HCPCS: 72148

== ENCOUNTER 2024-12-03 09:50 | Outpatient (AMB) | payer OTHER, SELFPAY ==
--- NOTE | 2024-12-03 09:52 | MHC.OFFVIS ---
Vital Signs 12/03/24 09:53 Height 5 ft Weight 130 lb BMI 25.4 Intake Visit Reasons: OV- MRI review of lumbar spine Intake Note: Helena is a 73 year old female who presents with complaints of progressively worsening low back pain which radiates down her left leg as well as intermittent discomfort along the lateral aspect of her left hip. She did undergo left total hip replacement surgery several years ago. She denies any fevers or chills. The patient states that her back pain has gotten worse over the last few years in spite of continued non operative treatments. The patient has tried Tylenol which gives her minimal relief. She is not able to take anti-inflammatory medicines because she is on Eliquis. She does walk with a rolling walker. Allergies No Known Allergies Allergy (Verified 10/21/24 11:17) Medication List - Last Reconciled 12/03/24 by Jw Navarro MD apixaban (Eliquis) 5 mg PO BID clonazepam mg PO loratadine 10 mg PO DAILY is-dzn-EE-vit W-uzlxcm-vyzucdx 200 mcg-15 mcg- 5 mg-1 mg (PreserVision AREDS 2 Plus Multivit) 1 cap PO DAILY Physical Exam Vital Signs: BMI result Body Mass Index 25.4 Back/Spine/Pelvis Other: Low back examination shows left-sided paraspinal muscle tenderness, pain with range of motion, positive straight leg raise test on the left at 70 degrees Results Reviewed Results Reviewed: MRI of the patient's lumbar spine shows significant scoliosis as well as diffuse degenerative disc disease and left neuroforaminal narrowing Assessment & Plan Assessment & Plan (1) Low back pain radiating to left leg: Code(s): M54.50 - Low back pain, unspecified; M79.605 - Pain in left leg Category: Medical Plan Ms. Sanchez presents with low back pain which radiates into her left leg most likely due to lumbar stenosis secondary to her scoliosis. Thus, I will have her evaluated in our neurosurgery department. She will contact me prior to that appointment should her symptoms worsen in way. Feel free to call me at any time should questions regarding her orthopedic management arise. I spent 20 minutes in reviewing the patient's records and imaging studies, seeing the patient and documenting in the medical record. Orders: Referrals Neuro Spine Referral M54.50 - Low back pain, unspecified, M79.605 - Pain in left leg Coding Level of Care Code Est Pt Level 3 (99817) Complex EM visit Add On G2211 Diagnoses Low back pain radiating to left leg M54.50; M79.606
[2024-12-03 09:53] VITALS: BMI 25.4
--- OUTSIDE RECORDS SUMMARY | 2024-12-03 11:12 | XMS_ITS | Data Portability ---
Author Organization [employer], [employer] Address [address] [place] [id number] Care Team Providers Care Fork Lift Technician Name Role Phone HIM CCA OTHER Assessment Encounter Date Assessment Date Assessment LastModified by Organization Details LastModified Time 03/01/2024 03/01/2024 As noted, we kelvin castaneda called to see this patient regarding concerns of chills, shakiness, dull BHATT, especially after eating, along with bloating and early satiety. Seen in ED for this recently as well. Evaluation in the field was performed by my air crew supervisor colleague, as noted above, I provided real-time [...] pancreatitis (given Trigs), portal vein thrombosis, or [place] needs to be excluded. The hyperglycemia in [...] need to exclude a serious intraabdominal process. [email or web address] Not available 03/01/2024 12:24:14 Plan of Treatment Reminders Order Date Submit Date Provider Last Modified By Organization Details Last Modified Time Details Appointments None recorded. Lab BMP, serum or plasma [address], [phone] 08:05:53 Referral None recorded. Procedures None recorded. Surgeries None recorded. Imaging electrocard iogram [facility], [phone] 12:26:17 Medication Orders None recorded. Patient TargetsNo targets recorded. Patient InstructionsNo instructions recorded. Reason for Referral None Reported. Results Created Date Observation Date Name Description Value Unit Range Abnormal Flag Note LastModifiedBy Organization Detail LastModifiedTime 03/01/20 24 elect dariusz elisabet am No observ ation record ed. [email or web address] [facility] d [address] [place] [address], [phone] 03/01/2024 12:26:16 Result Notes None recorded. Procedures Surgical History None recorded. Imaging Results Imaging Date Name Status LastModified by Organization Details LastModified Time 03/01/2024 electrocardiogram completed [email or web address] [address], [phone] 03/01/2024 12:26:16 Procedure Notes None recorded. Medical Equipment None Reported. Allergies Allergen ID Allergen Name Allergen Category Reaction Reaction Severity Criticality Documentation Date Start Date Code Code System Note Provider Name and Address Organization Details Recorded Time 8081 Bactrim medicatio n Not available Not available Not available 05/13/2024 53117 9 RxNorm Not Available [facility] - production 03:41:50 8082 doxycycli ne Not available Not available Not available Not available 05/13/2024 3640 RxNorm Not Available [employer] - production 4 03:41:50 Medications Name Sig [...] [degF] 132 mm[Hg] 74 mm[Hg] Not Available [employer] - production 11:08:31 Social History None recorded. Functional Status None recorded. Mental Status None recorded. Family History Nothing Reported. Medical History No medical history recorded. Gynecological HistoryNo gynecological history recorded. Obstetrics History GPAL:G 0 P 0 0 0 0 Past Encounters Encounter ID Performer Location Encounter Start Date Encounter Closed Date Diagnosis/Indication Diagnosis SNOMED-CT Code Diagnosis ICD10 Code Diagnosis Note [id number] Damon Caldwell MD Main - [address] [address] 03/01/2024 11:08:29 03/01/2024 19:07:06 Chill [id number] R68.83 Lactic acidosis 44173975 E87.20 Health Concerns Section Related Observation LastModified by Organization Detai ls LastModified Time None Recorded Concern Status LastModified by Organization Details LastModified Time None Recorded Advance Directives Directive None Recorded Payers Insurance Date Sequence Insurance Name Policy Number Policy Graham Covered Member ID Graham Member ID Guarantor Name 02/29/2024 1 [facility] - DOS ON OR AFTER 2022 - DUAL ELIGIBLE - INTERMEDIATE OPTIONS AND ONE CARE (MEDICARE REPLACEMENT/ADV ANTAGE - HMO) December Daniel [id number] December Daniel Notes Date Note Type Note [...] with changes. She would feel better for [facility] to do a well check on her Sat 03/01 and assess her for dehydration. .................... .................... .................... .................... .................... .................... .................... . CRC Nurse Triage Notes (Dinorah Ramesh): Chief Complaints: Dehydration PMH: Hypertension Allergies: Bactrim, Doxycycline Other Allergies: codeine,PCN,oxycodon e,doxycycline,bactri m,amoxicillin,tramad ol,naproxen Comments: cRC RN DID NOT NEED FURTHER INFO Strategic Planning Specialist [facility] Name: [facility] Address: [address] [place] [address], [place] [address], Operator Helper: Rinku Parra MD CLIA No.: [id number] Strategic Planning Specialist POC Test Results from Lucrecia Navarrete [facility] (11:25:37) pH: 7.457 pH units [...] .................... .................... .................... .................... .................... .................... . Strategic Planning Specialist Note From Lucrecia Navarrete: Pt reports feeling [...] epoc drawn as noted; lactate > 4. [facility] consulted, recommendation for not to be seen at ER which pt was agreeable to after speaking with [facility]. Pt to [facility] by local EMS. Strategic Planning Specialist Allergies: Bactrim, Doxycycline .................... .................... .................... .................... .................... .................... .................... . Disposition: Fulfilled Damon Caldwell MD [address] [facility],[address], [place], [address], [employer] 03/01/2024 14:30:36 OBGyn Episode No OBEpisode recorded.
--- OUTSIDE RECORDS SUMMARY | 2024-12-03 11:13 | XMS_ITS | Encounter Summary ---
Author Organization [employer] Address [address] [facility] 7t [place] [address] Care Team Providers Care Product Support Consultant Name Role Phone Viki Pineda Primary Care Provider [phone] Constance Mendez LCSW Unavailable Unav ailable Encounter Details Date Type Department Care Team (Late st Contact Info) Description 04/09/2024 Orders Only [facility] [address] [place] [address] Viki Pineda FNP [address] [place] [address] Social History Tobacco Use Types Packs/Day Years [...] Care Team (Late st Contact Info) Description 04/29/2025 11:00 AM EDT Office Visit [facility] OPTOMETRY [address] [place] [address] Laura Napoles OD [address] [place] [address] documented as of this encounter Procedures Procedure [...] documented as of this encounter Care Teams Product Support Consultant Relationship Specialty Start Date End Date Viki Pineda FNP [address] [place] [address] PCP - General Family Medicine 01/22/23 Constance Mendez LCSW Loader Helper Behavioral Health 06/22/23 documented as of this encounter
--- OUTSIDE RECORDS SUMMARY | 2024-12-03 11:13 | XMS_ITS | Encounter Summary ---
Author Organization [employer] Address [address] [facility] 7t [place] [address] Care Team Providers Care Film Crew Member Name Role Phone Viki Pineda Primary Care Provider [phone] Constance Mendez LCSW Unavailable Unav ailable Reason for Visit * Reason Comments Med Refill Encounter Details Date Type Department Care Team (Late st Contact Info) Description 10/13/2024 Refill [facility] MED[facility] [address] [place] [address] Tika Esparza MD [address] [place] [address] Anxiety with depression Social History Tobacco Use [...] Upcoming Encounters Date Type Department Care Team ([facility] st Contact Info) Description 04/29/2025 11:00 AM EDT Office Visit [place] [facility] OPTOMETRY [address] [place] [address] Laura Napoles, OD [address] [place] [address] documented as of this encounter Visit Diagnoses Diagnosis Anxiety with depression documented in this encounter Additional Health Concerns Infection Onset Date Last Indicated Resolved Time MRSA 04/05/2024 04/09/2024 Assessment Noted Time PHQ-9 Depression Total Score: 1 01/31/20 24 2:51 PM EDT documented as of this encounter Care Teams Film Crew Member Relationship Specialty Start Date End Date Viki Pineda FNP [address] [place] [address] PCP - General Family Medicine 01/22/23 Constance Mendez LCSW Transportation Engineering Technician Behavioral Health 06/22/23 documented as of this encounter
--- OUTSIDE RECORDS SUMMARY | 2024-12-03 11:13 | XMS_ITS | Encounter Summary ---
Author Organization [employer] Address [address] [facility] 7t [place] [address] Care Team Providers Care Sfdc Architect Name Role Phone Viki Pineda Primary Care Provider [phone] Constance Mendez LCSW Unavailable Unav ailable Encounter Details Date Type Department Care Team (Late st Contact Info) Description 03/07/2024 Orders Only [place] [facility] [address] [place] [address] Viki Pineda FNP [address] [place] [address] Social History Tobacco Use Types Packs/Day Years [...] the past 12 months, has t he [employer], gas, oil or water [employer] threatened to shut off services in your [...] Description 04/29/2025 11:00 AM EDT Office Visit [place] [facility] OPTOMETRY [address] [place] [address] Laura Napoles, LUCERO [address] [place] [address] documented as of this encounter Procedures Procedure [...] documented as of this encounter Care Teams Sfdc Architect Relationship Specialty Start Date End Date Viki Pineda FNP [address] [place] [address] PCP - General Family Medicine 01/22/23 Constance Mendez LCSW Endoscopy Technician Behavioral Health 06/22/23 documented as of this encounter
--- OUTSIDE RECORDS SUMMARY | 2024-12-03 11:13 | XMS_ITS | Encounter Summary ---
Author Organization [employer] Address [address] [facility] 7t [place] [address] Care Team Providers Care Health Coach Name Role Phone Viki Pineda Primary Care Provider [phone] Constance Mendez LCSW Unavailable Unav ailable Reason for Visit * Reason Comments Med Refill Encounter Details Date Type Department Care Team (Late st Contact Info) Description 02/12/2024 Refill [facility] [address] [place] [address] Viki Pineda FNP [address] [place] [address] Anxiety with depression Social History Tobacco Use [...] Description 04/29/2025 11:00 AM EDT Office Visit [facility] OPTOMETRY [address] [place] [address] Laura Napoles OD [address] [place], [place] [id number] documented as of this encounter Visit Diagnoses Diagnosis Anxiety with depression documented in this encounter Additional Health Concerns Infection Onset Date Last Indicated Resolved Time MRSA 04/05/2024 04/09/2024 Assessment Noted Time PHQ-9 Depression Total Score: 1 01/31/20 24 2:51 PM EDT documented as of this encounter Care Teams Health Coach Relationship Specialty Start Date End Date Viki Pineda FNP [address] [place] [address] PCP - General Family Medicine 01/22/23 Constance Mendez LCSW Carpet Sewer Behavioral Health 06/22/23 documented as of this encounter
--- OUTSIDE RECORDS SUMMARY | 2024-12-03 11:13 | XMS_ITS | Clinical Summary ---
Author Organization [facility] Address [address] [place] [address] Care Team Providers Care Barber Tool Sharpener Name Role Phone Tika Esparza MD Primary Care Provider [phone] Allergies Active Allergy Reactions Criticality Noted Date [...] age to complete this topic Care Teams Barber Tool Sharpener Relationship Specialty Start Date End Date Tika Esparza MD [address] [place] [address] PCP - General Internal Medicine 03/13/19
--- OUTSIDE RECORDS SUMMARY | 2024-12-03 11:13 | XMS_ITS | Encounter Summary ---
Author Organization [employer] Address [address] [facility] 7t [place] [address] Care Team Providers Care Felt Hat Steamer Name Role Phone Viki Pineda Primary Care Provider Constance Mendez LCSW Unavailable Unav ailable Encounter Details Date Type Department Care Team (Late st Contact Info) Description 11/13/2024 Orders Only [facility] [address] [place] [address] Viki Pineda FNP [address] [place] [address] Social History Tobacco Use Types Packs/Day Years [...] Description 04/29/2025 11:00 AM EDT Office Visit [place] [facility] OPTOMETRY [address] [place] [address] Laura Napoles OD [address] [facility] [place] [address] documented as of this encounter Procedures Procedure Name Priority Date/Time Associated Diagnosis Comments MRI LUMBAR SPINE WO CONTRAST Routine 11/03/2024 9:54 AM EDT documented in this encounter Results * MRI LUMBAR SPINE WO CONTRAST (11/03/2024 9:54 AM EDT) Anatomical Region Laterality Modality Magnetic Resonan ce Viki GORDON IMG MRI PROCEDURES Final Result documented in this encounter Visit Diagnoses Not on filedocumented in this encounter Additional Health Concerns Infection Onset Date Last Indicated Resolved Time MRSA 04/05/2024 04/09/2024 Assessment Noted Time PHQ-9 Depression Total Score: 1 01/31/20 24 2:51 PM EDT documented as of this encounter Care Teams Felt Hat Steamer Relationship Specialty Start Date End Date Viki Pineda FNP [address] [facility] [place] [place] [address] PCP - General Family Medicine 01/22/23 Constance Mendez LCSW Leather Scraper Behavioral Health 06/22/23 documented as of this encounter
--- OUTSIDE RECORDS SUMMARY | 2024-12-03 11:13 | XMS_ITS | Encounter Summary ---
Author Organization [employer] Address [address] [facility] 7t [place] [address] Care Team Providers Care Proof Load Mechanic Name Role Phone iVki Pineda Primary Care Provider [phone] Constance Mendez LCSW Unavailable Unav ailable Encounter Details Date Type Department Care Team (Late st Contact Info) Description 12/31/2023 Orders Only [facility] [address] [place] [address] Viki Pineda FNP [address] [place] [address] Social History Tobacco Use Types Packs/Day Years [...] the past 12 months, has t he [employer], gas, oil or water [employer] threatened to shut off services in your [...] Description 04/29/2025 11:00 AM EDT Office Visit [place] [facility] OPTOMETRY [address] [place] [address] Laura Napoles, LUCERO [address] [place] [address] documented as of this encounter Procedures Procedure [...] Spine, C-spine Computed Tomogra phy Viki GORDON IMG CT PROCEDURES Final Result * CT HEAD WO CONTRAST (12/29/2023 11:00 AM EDT) Anatomical Region Laterality Modality Computed Tomogra phy us Viki GORDON IMG CT PROCEDURES Final Result * XR Toes [...] documented as of this encounter Care Teams Proof Load Mechanic Relationship Specialty Start Date End Date Viki Pineda FNP [address] [place] [address] PCP - General Family Medicine 01/22/23 Constance Mendez LCSW 1St Grade Teacher Behavioral Health 06/22/23 documented as of this encounter
--- OUTSIDE RECORDS SUMMARY | 2024-12-03 11:13 | XMS_ITS | Encounter Summary ---
Author Organization [employer] Address [address] [facility] 7t [place] [address] Care Team Providers Care Crime Scene Examiner Name Role Phone Viki Pineda Primary Care Provider [phone] Constance Mendez LCSW Unavailable Unav ailable Reason for Visit * Reason Onset Date Comments eye issues 09/25/2024 Encounter Details Date Type Department Care Team (Late st Contact Info) Description 09/25/2024 Telephone [place] [facility] [address] [place] [address] Viki Pineda FNP [address] [place] [address] eye issues Social History Tobacco Use Types [...] Description 04/29/2025 11:00 AM EDT Office Visit [place] [facility] OPTOMETRY [address] [place] [address] Laura Napoles, LUCERO [address] [place] [address] documented as of this encounter Visit Diagnoses Not on filedocumented in this encounter Additional Health Concerns Infection Onset Date Last Indicated Resolved Time MRSA 04/05/2024 04/09/2024 Assessment Noted Time PHQ-9 Depression Total Score: 1 01/31/20 24 2:51 PM EDT documented as of this encounter Care Teams Crime Scene Examiner Relationship Specialty Start Date End Date Viki Pineda FNP [address] [place] [address] PCP - General Family Medicine 01/22/23 Constance Mendez LCSW Storage Worker Behavioral Health 06/22/23 documented as of this encounter
--- OUTSIDE RECORDS SUMMARY | 2024-12-03 11:13 | XMS_ITS | Encounter Summary ---
Author Organization [employer] Address [address] [facility] 7t [place] [address] Care Team Providers Care Blacking Machine Operator Name Role Phone Viki Pineda Primary Care Provider [phone] Constance Mendez LCSW Unavailable Unav ailable Reason for Visit * Reason Comments Med Refill Encounter Details Date Type Department Care Team (Late st Contact Info) Description 12/02/2024 Refill [facility] [address] [place] [address] Viki Pineda FNP [address] [place] [address] Social History Tobacco Use Types Packs/Day Years [...] Description 04/29/2025 11:00 AM EDT Office Visit [facility] OPT[facility] [address] [place] [address] Laura Napoles, OD [address] [place] [address] documented as of this encounter Visit Diagnoses Not on filedocumented in this encounter Additional Health Concerns Infection Onset Date Last Indicated Resolved Time MRSA 04/05/2024 04/09/2024 Assessment Noted Time PHQ-9 Depression Total Score: 1 01/31/20 24 2:51 PM EDT documented as of this encounter Care Teams Blacking Machine Operator Relationship Specialty Start Date End Date Viki Pineda FNP [address] [place] [address] PCP - General Family Medicine 01/22/23 Constance Mendez LCSW Paper And Pul[employer] Mill Worker Behavioral Health 06/22/23 documented as of this encounter
--- OUTSIDE RECORDS SUMMARY | 2024-12-03 11:13 | XMS_ITS | Encounter Summary ---
Author Organization [employer] Address [address] [facility] 7t [place] [address] Care Team Providers Care Nuclear Logging Engineer Name Role Phone Viki Pineda Primary Care Provider [phone] Constance Mendez LCSW Unavailable Unav ailable Encounter Details Date Type Department Care Team (Late st Contact Info) Description 05/29/2024 Orders Only [facility] [address] [place] [address] Viki Pineda FNP [address] [place] [address] Social History Tobacco Use Types Packs/Day Years [...] Description 04/29/2025 11:00 AM EDT Office Visit [place] OPTOMETRY [address] [place] [address] Jose Martinjuan Laura, LUCERO [address] [facility] [place] [address] documented as of this encounter Procedures Procedure [...] documented as of this encounter Care Teams Nuclear Logging Engineer Relationship Specialty Start Date End Date Viki Pineda FNP [address] [facility] [place] [address] PCP - General Family Medicine 01/22/23 Constance Mendez LCSW Clay Digger Behavioral Health 06/22/23 documented as of this encounter
--- OUTSIDE RECORDS SUMMARY | 2024-12-03 11:13 | XMS_ITS | Encounter Summary ---
Author Organization [employer] Address [address] [facility] 7t [place] [address] Care Team Providers Care Dermatology Physician Name Role Phone Viki Pineda Primary Care Provider [phone] Constance Mendez LCSW Unavailable Unav ailable Reason for Visit * Reason Onset Date Comments Med Refill 11/27/2023 Encounter Details Date Type Department Care Team (Late st Contact Info) Description 11/27/2023 Telephone [place] [facility] [address] [place] [address] Viki Pineda FNP [address] [place] [address] Med Refill Social History Tobacco Use Types [...] PCP basket. * Telephone Encounter - Summer Easley - 11/27/2023 10:12 AM EDT Patient LMOM asking for med refill gabapentin (Neurontin) 300 MG capsule [[id number]] clonazePAM (KlonoPIN) 0.5 MG tablet [[id number]] Pharmacy [facility]/pharmacy #[id number] [facility] [address] documented in this encounter Plan of Treatment Upcoming Encounters Date Type Department Care Team (Late st Contact Info) Description 04/29/2025 11:00 AM EDT Office Visit [facility] OPTOMETRY [address] [place] [address] Laura Napoles OD [address] [place] [address] documented as of this encounter Visit Diagnoses Not on filedocumented in this encounter Additional Health Concerns Infection Onset Date Last Indicated Resolved Time MRSA 04/05/2024 04/09/2024 Assessment Noted Time PHQ-9 Depression Total Score: 10 023 11:27 AM EST documented as of this encounter Care Teams Dermatology Physician Relationship Specialty Start Date End Date Viki Pineda FNP [address] [place] [address] PCP - General Family Medicine 01/22/23 Constance Mendez LCSW Coke Inspector Behavioral Health 06/22/23 documented as of this encounter
--- OUTSIDE RECORDS SUMMARY | 2024-12-03 11:13 | XMS_ITS | Clinical Summary ---
Author Organization [address] [place] [address] Address [address] [place] [address] Phone Care Team Providers Care Plier Worker Name Role Phone Tika Esparza MD Primary Care Provider [phone] Allergies Active Allergy Reactions Criticality Noted Date [...] Active Problems Problem Noted Date Diagnosed Date November-Thurner syndrome 08/25/2021 Anxiety 08/23/2021 COPD (chronic obstructive pu lmonary disease) ([facility] V24, [facility] V28) 08/23/2021 Gait instability 08/23/2021 Tobacco dependence 08/23/2021 Immunizations Name Administration Dates Next Due Pfizer SARS-CoV-2 COVID-19, mRNA, LNP-S, preservative free 08/03/2021,01/12/2021 Surgical History Surgery Date Site/Laterality Comments OTHER SURGICAL HISTORY 08/16/2021 PROCEDURE: WA TRLML BALO ANGIOP OPEN/PERQ W/IMG S&I 1ST VEIN OTHER SURGICAL HISTORY 08/16/2021 PROCEDURE: WA TRLML BALO ANGIOP OPEN/PERQ W/IMG S&I ADDL VEIN; COMMENT: x2 OTHER SURGICAL HISTORY 08/16/2021 PROCEDURE: WA SEC PRQ TRLUML THRMBC N-CORONARY N-INTRACRANIAL OTHER SURGICAL HISTORY 08/16/2021 PROCEDURE: WA INTRAVASCULAR US NONCORONARY RS&I INTIAL VESSEL OTHER SURGICAL HISTORY 08/16/2021 PROCEDURE: WA INTRAVASCULAR US NONCORONARY RS&I ADDL VESSEL; COMMENT: x4 OTHER SURGICAL HISTORY 08/16/2021 PROCEDURE: ULTRASOUND GUIDANCE FOR VASCULAR AC OTHER SURGICAL HISTORY 05/09/2022 PROCEDURE: WA NJX PX XTR VNGRPH W/INTRO NDL/INTRACATH OTHER [...] PM EST Office Visit Vascular Surgery - [place] [address] [place] [id number] Sanam Urena PA [address] [facility] [address] [place] [address] Health Maintenance Due Date Last Done Comments [...] age to complete this topic Insurance [facility] MEDICARE Member Subscriber Plan / Payer (Ef fective 2020-Present) Name:Helena Sanchez Relation to Subscriber:Self Name:Helena Sanchez Payer ID:[id number] Group ID:[id number] Type:Not on file Address: [facility] [address] [id number] Advance Directives Documents on File Type Date Recorded Patient Card Reader Expl anation Health Care Decision (hx) 06/03/2021 [...] (hx) 06/03/2021 AD XAVIER DIRECTIVE Care Teams Plier Worker Relationship Specialty Start Date End Date Tika Esparza MD [address] [place] [id number] PCP - General Internal Medicine 06/16/21
--- OUTSIDE RECORDS SUMMARY | 2024-12-03 11:13 | XMS_ITS | Encounter Summary ---
Author Organization [employer] Address [address] [facility] 7t [place] [address] Care Team Providers Care Disability Hearing Officer Name Role Phone Viki Pineda Primary Care Provider [phone] Constance Mendez LCSW Unavailable Unav ailable Reason for Visit * Reason Onset Date Comments Med Refill 11/28/2024 Prior Auth 11/28/2024 Encounter Details Date Type Department Care Team (Late st Contact Info) Description 11/28/2024 Refill [facility] MED[facility] [address] [place] [address] Viki Pienda FNP [address] [place] [address] Allergic rhinitis, unspecified seasonality, unspecified trigger Social History Tobacco Use Types Packs/Day Years [...] encounter Miscellaneous Notes * Telephone Encounter - Susannah Coello MA - 11/28/2024 4:18 PM EDT Spoke with the patient, informed her to reach out to her pharmacy to make sure the script is ready for pick-up. Informed her this will be taken care of when available. * Telephone Encounter - Kayleigh Prabhakar - 11/28/2024 4:03 PM EDT Patient called again, upset and insisting that medication be filled today. * Telephone Encounter - Kayleigh Prabhakar - 11/28/2024 11:17 AM EDT Patient approached desk asking about her medication. [facility] was supposed to call for a prior auth. Patient asked that it be refilled and sent to her pharmacy o[facility]. Last OV: 11/12/24 Next OV: 04/29/25 Med: loratadine (Claritin) 10 MG tablet [[id number]] Pharmacy: [facility]/pharmacy #[id number] [address] documented in this encounter Plan of Treatment Upcoming Encounters Date Type Department Care Team (Late st Contact Info) Description 04/29/2025 11:00 AM EDT Office Visit [place] [facility] OPTOMETRY [address] [place] [address] Laura Napoles OD [address] [place] [address] documented as of this encounter Visit Diagnoses Diagnosis Allergic rhinitis, unspecified seasonality, unspecified trigger documented in this encounter Additional Health Concerns Infection Onset Date Last Indicated Resolved Time MRSA 04/05/2024 04/09/2024 Assessment Noted Time PHQ-9 Depression Total Score: 1 01/30/ 24 2:51 PM EDT documented as of this encounter Care Teams Disability Hearing Officer Relationship Specialty Start Date End Date Viki Pineda FNP [address] [place] [address] PCP - General Family Medicine 01/22/23 Constance Mendez LCSW Charge Out Clerk Behavioral Health 06/22/23 documented as of this encounter
--- OUTSIDE RECORDS SUMMARY | 2024-12-03 11:13 | XMS_ITS | Clinical Summary ---
Author Organization [employer] Address [address] [place] [address] 7t [place] [address] Care Team Providers Care Song Writer Name Role Phone Viki Pineda Primary Care Provider [phone] Constance Mendez DATA MANAGEMENT MANAGER Unavailable Unav ailable Allergies Active Allergy Reactions [...] 06/16/2022 Oxycodone-Acetaminophen 03/13/2023 Prednisone Other High 04/05/2024 [place] like my inside was going to crawl out of me Propoxyphene Anaphylaxis High 08/23/2021 Sulfamethizole High 08/23/2021 Other reaction(s): Hives/Urticaria Sulfamethoxazole-Trimethop rim 06/16/2022 Other reaction(s): paralysis Tamsulosin Low 06/16/2022 Other reaction(s): nose bleeds Tetanus Antitoxin 03/13/2019 Xnebzmj-Hkhcdu-Jkspb Pertussis Hives Low 06/16/2022 Other reaction(s): hives Tetanus-Diphtheria Toxoids Td Rash Low 08/23/2021 Other reaction(s): Rash/Dermatitis Tramadol Nausea,Vomiting Low 06/16/2022 Other reaction(s): nv Trimethoprim High 08/23/2021 Other reaction(s): Hives/Urticaria Medications * This document contains information received from the source organization and may not represent a complete record from that organization. albuterol 108 (90 Base) MCG/ACT inhaler 2 puffs. PRN 02/16/20 15 Active apixaban (Eliquis) 5 MG tabletIndicati ons:Personal history of other venous thrombosis and embolism Take 1 tablet (5 mg) by mouth 2 times daily. 180 tablet 3 03/07/20 24 025 Active Bacillus Coagulans-Inul in (Probiotic) 1-250 BILLION-MG capsule Take 1 capsule by mouth Once per day. 90 capsule 3 04/29/20 24 025 Active ketoconazole (NIZOral) 2 % creamIndicatio ns:Rash Apply topically 2 times daily. to affected area 30 g 2 08/05/19 25 Active Glycerin-Hypro mellose-PEG 400 (Dry Eye Relief Drops) 0.2-0.2-1 % solution Administer 1 drop into affected eye(s) Once per day. Active clonazePAM (KlonoPIN) 0.5 MG tabletIndicati ons:Anxiety with depression Take 1 tablet (0.5 mg) by mouth 2 times daily. 56 tablet 1 11/11/19 25 025 Active loratadine (Claritin) 10 MG tabletIndicati ons:Allergic rhinitis, unspecified seasonality, unspecified trigger Take 1 tablet (10 mg) by mouth Once per day. 90 tablet 11/29/19 25 025 Active Multiple Vitamins-Kay als (PreserVision AREDS 2+Multi Vit) capsule TAKE 1 CAPSULE BY MOUTH ONCE PER DAY. 100 capsule 3 12/03/19 25 Active loratadine (Claritin) 10 MG tabletIndicati ons:Allergic rhinitis, unspecified seasonality, unspecified trigger TAKE 1 TABLET BY MOUTH EVERY DAY 90 tablet 4 09/14/19 24 025 Discontinued(Re order (will not trigger notification to Pharmacy)) Multiple Vitamins-Side Door Man als (PreserVision AREDS 2+Multi Vit) capsule Take 1 capsule by mouth Once per day. 90 capsule 3 04/02/20 24 025 Discontinued clonazePAM (KlonoPIN) 0.5 MG tabletIndicati ons:Anxiety with depression Take 1 tablet (0.5 mg) by mouth 2 times daily. 56 tablet 1 10/14/19 25 025 Discontinued(Re order (will not trigger notification to Pharmacy)) fluticasone (Flonase) 50 MCG/ACT nasal sprayIndicatio ns:Dysfunction of both eustachian tubes,Seasonal allergic rhinitis, unspecified trigger Administer 2 sprays into each nostril Once per day. Shake gently. Before first use, prime pump. After use, clean tip and replace cap. 16 g 5 10/24/19 25 025 Discontinued(Si de effects) clindamycin (Cleocin) 300 MG capsuleIndicat ions:Skin infection Take 1 capsule (300 mg) by mouth 4 times daily for 10 days. 40 capsule 10/29/19 25 025 Discontinued(Th erapy completed) Active Problems Patient Care Coordination No te Formatting of this note migh t be different from the original. Pt was no show for her scheduled 5 p.m. telehealth appt this evening. Left message on machine asking her to potato picker and would retry her in a [...] followup labs. Problem Noted Date Diagnosed Date Abscess 11/12/2024 Skin infection 10/28/2024 Dysfunction of both eustachian [...] - pt will call ENT office in [place] and let us know if she needs a referral. Mixed stress and urge urinary incontinence 04/24 Skin lesion of face 04/02/2024 Overview (06/26/2024): Flat, scabbed, flaky lesion to L roman catholic without erythema. Skin surrounding lesion is dry [...] course. Denies vision concerns. Lesion on L roman catholic - some green/yellow discharge. No warmth/erythema. Pt [...] counter while putting up curtain. Evaluated by [facility]. Available medical record reviewed. Cleared for [...] (03/06/2024): Zoom therapy with Tyler ruth at [facility]. Rx for Klonopin - no maintenance medication. 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 Ms. Sanchez is very [...] back pain and shrinking . Seen by [facility] - no surgery needed but offered [...] organization. Date Type Department Care Team Description 12/02/[address] [address] Viki Pineda FNP 11/28/[address] [address] Viki Pineda FNP Allergic rhinitis, unspecified seasonality, unspecified trigger 11/13/2024 Orders Only [facility] [address] [place] [address] Viki Pineda FNP 11/12/2024 10:00 AM EDT Office Visit [address] [address] Myla Curtis FNP-C Dysfunction of both eustachian tubes (Primary Dx); Abscess 11/12/[address] [address] Viki Pineda FNP Medical Records 11/08/[address] [address] Viki Pineda FNP Medication Question 11/07/[address] [address] Viki Pineda FNP Anxiety with depression 10/30/[address] [address] Jodee Curtis MD 10/29/2024 10:30 AM EDT Clinical Support [address] [address] Lucrecia Solis LPN Acute otitis externa of left ear, unspecified type 10/29/2024 10:00 AM EDT Office Visit [facility] OPTOMETRY [address] [place] [address] Laura Napoles OD 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 degeneration of both eyes (Primary Dx); Lamellar macular hole of right eye; Asteroid hyalosis of left eye; Open angle with borderline findings and low glaucoma risk in both eyes 10/28/2024 11:40 AM EDT Office Visit [address] [address] Myla Curtis FNP-C Skin infection (Primary Dx) 10/28/2024 Travel 10/27/[address] [address] Viki Pineda FNP swollen eyes; left ear pain and swelling; Medication Reaction 10/24/2024 9:30 AM EDT Clinical Support [address] [address] Pratima Coe RN Dysuria 10/23/2024 11:00 AM EDT Office Visit [address] [address] Myla Curtis FNP-C Seasonal allergic rhinitis, unspecified trigger (Primary Dx); Long-term use of high-risk medication; Dysfunction of both eustachian tubes 10/23/2024 Travel 10/14/[address] [address] Viki Pineda FNP Prior Authorization (clonazepam) 10/13/2024 Refill [facility] MEDICAL [address] [place] [address] Tika Esparza MD Anxiety with depression 10/13/2024 Refill [facility] MEDICAL [address] [place] [address] Viki Pineda FNP Anxiety with depression 09/25/2024 11:30 AM EDT Office Visit [facility] OPTOMETRY [address] [place] [address] Laura Napoles, OD 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 degeneration of both eyes (Primary Dx); Dry eye syndrome of both eyes; Screening for diabetes mellitus 09/25/2024 Telephone [facility] MEDICAL [address] [place] [address] Viki Pineda FNP eye issues 09/15/[address] [address] Tika Esparza MD Anxiety with depression 09/15/[address] [address] Viki Pineda FNP Anxiety with depression from Last 3 Months Immunizations Immunization Administration Dates Next Due Hep B, adult [...] Sign Reading Time Taken Comments Blood Pressure 146/97 11/12/2024 10:10 AM EDT Pulse 86 11/12/2024 10:10 AM EDT Temperature 36.3 ??C (97.3 ??F) 11/12/2024 10:10 AM E DT Respiratory Rate 14 10/24/2024 10:22 AM EDT Oxygen Saturation 96% 11/12/2024 10:10 AM EDT Inhaled Oxygen Concentration - - Weight 60.3 kg (133 lb) 11/12/2024 10:10 AM EDT Height 152.4 cm (5') 11/12/2024 10:10 AM EDT Body Mass Index 25.97 11/12/2024 10:10 AM EDT Plan of Treatment Upcoming Encounters Date Type Department Care Team (Late st Contact Info) Description 04/29/2025 11:00 AM EDT Office Visit [facility] OPTOMETRY [address] [place] [address] Laura Napoles OD [address] [place] [address] Health Maintenance Due Date Last Done Comments [...] Alcohol/Substance Use Screening 10/23/2025 10/23/2024 Tobacco Screening 11/12/2025 11/12/2024 Eye Exam 10/29/2026 10/29/2024, 10/14, 10/29/2024, Additional [...] WO CONTRAST Routine 11/03/2024 9:54 AM EDT FUNDUS PHOTOS - OU - BOTH EYES [...] Recently Relevant to Health Maintenance Results * MRI LUMBAR SPINE WO CONTRAST (11/03/2024 9:54 AM EDT) Anatomical Region Laterality Modality Magnetic Resonan ce Viki GORDON IM MRI PROCEDURES Final Result * Fundus Photos - OU - Both Eyes (10/29/2024) Impressions Laura Napoles, OD - 10/29/2024 Right eye (OD): diffuse drusen; establishing baseline Left eye (OS): diffuse drusen; note central media opacities from asteroid; establishing baseline Laura Napoles OD OPHTH PHOTOGRAPHY Final Result * POCT [...] AM EDT Performed at: ??01 - [facility] [address] ??[id number] Cellophane Worker: Malu Gaspar MD, Phone: ??[phone] Tika Esparza MD HISTORICAL/NON ORDERABLE LABS Fi nal Result [facility] 1 * Urinalysis, Complete, with Reflex to Culture (10/24/2024 12:00 AM EDT) Specific [place] 1.016 1.005 - 1.030 [facility] 1 pH, [...] AM EDT Performed at: ??01 - [facility] [address] ??[id number] Cellophane Worker: Malu Gaspar MD, Phone: ??[phone] us Tika Esparza MD LAB URINE ORDERABLES [...] 4:05 PM EDT Performed at: ??01 - [facility] [address] [place] [address] ??[id number] Cellophane Worker: Eva Arango [facility], Phone: ??[phone] Myla GORDON-Alonzo LAB URINE ORDERABL ES Final Result [facility] [...] AM EDT Performed at: ??01 - [facility] [address] ??[id number] Cellophane Worker: Malu Gaspar MD, Phone: ??[phone] Majo Mccall NP LAB BLOOD ORDERABLES Final Resul t [facility] 1 * Hm Mammography (10/27/2022) Anatomical Region Laterality Modality Other Historical Provider HEALTH MAINTENANCE Final Result * COLONSCOPY (12/26/2012 12:00 AM EDT) Anatomical Region Laterality Modality Endoscopy 12/26/2012 Narrative 12/26/2012 12:00 AM EDT Refer to Fovea for result details Legacy Procedure: COLONSCOPY Procedure Note ProviderJorge, - 11/09/2022 Refer to [facility]a for result details Legacy Procedure: COLONSCOPY Historical Provider ENDOSCOPY PROCEDURE ORDER TIO Final Result from Last 3 Months or Most Recently Relevant to Health Maintenance Additional Health Concerns Infection Onset Date Last Indicated MRSA 04/05/2024 04/09/2024 Insurance [facility] OPTIONS (O D-SNP) [facility] Advance Directives Documents on File Type Date Recorded Patient Pedigree Researcher Expl anation HealthCare Proxy 08/13/2023 2:41 PM HCP [facility] form 08/13/2023 2:40 PM [facility] Care Teams Song Writer Relationship Specialty Start Date End Date Viki Pineda FNP [address] [place] [address] PCP - General Family Medicine 01/22/23 Constance Mendez LCSW Assembly Machine Offbearer Behavioral Health 06/22/23
--- OUTSIDE RECORDS SUMMARY | 2024-12-03 11:13 | XMS_ITS | Encounter Summary ---
Author Organization [employer] Address [address] [place] [address] 7[address] [place] [address] Care Team Providers Care Interface Engineer Name Role Phone Suzi Simmons COLLATERAL SPECIALIST Unavailable Unavailable Viki Pineda Primary Care Provider [phone] Constance Mendez LCSW Unavailable Unav ailable Reason for Visit * Reason Comments Med Refill Encounter Details Date Type Department Care Team (Late st Contact Info) Description 02/21/2023 Refill [facility] MED[facility] [address] [place] [address] Tika Esparza MD [address] [place] [address] Peripheral vascular disease, unspecified (CMS/HCC) Social History [...] 04/29/2025 11:00 AM EDT Office Visit [place] [facility] OPTOMETRY [address] [place] [address] Laura Napoles OD [address] [place] [address] documented as of this encounter Visit Diagnoses Diagnosis Peripheral vascular disease, unspecified (CMS/HCC) Peripheral vascular disease, unspecified documented in this encounter Additional Health Concerns Infection Onset Date Last Indicated Resolved Time MRSA 04/05/2024 04/09/2024 Assessment Noted Time PHQ-9 Depression Total Score: 5 02/17/20 23 7:33 AM EDT documented as of this encounter Care Teams Interface Engineer Relationship Specialty Start Date End Date Viki Pineda FNP [address] [place] [address] PCP - General Family Medicine 01/22/23 Suzi Simmons LICSW Lapel Padder Behavioral Health 06/23/22 07/22/23 Constance Mendez LCSW [facility] Behavioral Health 06/22/23 documented as of this encounter
--- OUTSIDE RECORDS SUMMARY | 2024-12-03 11:13 | XMS_ITS | Encounter Summary ---
Author Organization [employer] Address [address] [facility] 7t [place] [address] Care Team Providers Care Hydraulic Tester Name Role Phone Suzi GLASS BULB MACHINE ADJUSTER Unavailable Unavailable Tika Esparza MD Primary Care Provider [phone] Viki Pineda Primary Care Provider [phone] Constance MendezW Unavailable Unav ailable Encounter Details Date Type Department Care Team (Late Contact Info) Description 11/28/2022 Orders Only [facility] MEDICAL [address] [place] [address] Provider, MD Jorge Social History Tobacco Use [...] Encounters Date Type Department Care Team (Late Contact Info) Description 04/29/2025 11:00 AM EDT Office Visit [facility] OPTOMETRY [address] [place] [address] Laura Napoles, OD [address] [place], [place] [id number] documented as of this encounter Procedures Procedure Name Priority Date/Time Associated Diagnosis Comments MAMMOGRAPHY Routine 10/27/2022 documented in this encounter Results * Hm Mammography (10/27/2022) Anatomical Region Laterality Modality Other us Historical Provider HEALTH MAINTENANCE Final Result documented in this encounter Visit Diagnoses Not on filedocumented in this encounter Additional Health Concerns Infection Onset Date Last Indicated Resolved Time MRSA 04/05/2024 04/09/2024 documented as of this encounter Care Teams Hydraulic Tester Relationship Specialty Start Date End Date Tika Esparza MD [address] [place] [address] PCP - General Internal Medicine 08/15/22 01/21/23 Viki Pineda FNP [address] [place] [address] PCP - General Family Medicine 01/22/23 Suzi Simmons LICSW Otolaryngology Rep Behavioral Health 06/23/22 07/22/23 Constance Mendez LCSW Otolaryngology Rep Behavioral Health 06/22/23 documented as of this encounter
== END 2024-12-03 10:23 | disposition home or self-care (01) ==
LOC: HO.HOS 09:51
PROVIDERS: Visit Provider Orthopaedic Surgery
DX: M54.50 Low back pain, unspecified (principal); M79.605 Pain in left leg
CPT/HCPCS: 99213; G2211

== ENCOUNTER → 2024-12-03 09:50 | Outpatient (BNVA) | payer OTHER, SELFPAY | PROVIDERS: Visit Provider Orthopaedic Surgery | DX: M54.50 Low back pain, unspecified (principal); M79.605 Pain in left leg | CPT/HCPCS: 99212 ==

== ENCOUNTER 2024-12-12 10:10 | Outpatient (AMB) | payer OTHER, SELFPAY ==
--- OUTSIDE RECORDS SUMMARY | 2024-12-12 10:48 | XMS_ITS | Data Portability ---
Author Organization [facility] Address [address] [place] [id number] Care Team Providers Care Professor Of Political Science Name Role Phone HIM [facility] OTHER Assessment Encounter Date Assessment Date Assessment LastModified by Organization Details LastModified Time 03/01/2024 03/01/2024 As noted, we kelvin castaneda called to see this patient regarding concerns of chills, shakiness, dull BHATT, especially after eating, along with bloating and early satiety. Seen in ED for this recently as well. Evaluation in the field was performed by my hospital pharmacist colleague, as noted above, I provided real-time [...] pancreatitis (given Trigs), portal vein thrombosis, or NM needs to be excluded. The hyperglycemia in [...] need to exclude a serious intraabdominal process. [email or web address] Not available 03/01/2024 12:24:14 Plan of Treatment Reminders Order Date Submit Date Provider Last Modified By Organization Details Last Modified Time Details Appointments None recorded. Lab BMP, serum or plasma [address], [phone] 4 08:05:53 Referral None recorded. Procedures None recorded. Surgeries None recorded. Imaging electrocard iogram 2023 [email or web address], [address] [place] [address] 4 12:26:17 Medication Orders None recorded. Patient TargetsNo targets recorded. Patient InstructionsNo instructions recorded. Reason for Referral None Reported. Results Created Date Observation Date Name Description Value Unit Range Abnormal Flag Note LastModifiedBy Organization Detail LastModifiedTime 03/01/20 24 elect dariusz eliudgr am No observ ation record ed. [email or web address] [address], [phone] 03/01/2024 12:26:16 Result Notes None recorded. Medical Equipment None Reported. Allergies Allergen ID Allergen Name Allergen Category Reaction Reaction Severity Criticality Documentation Date Start Date Code Code System Note Provider Name and Address Organization Details Recorded Time 8081 Bactrim medicatio n Not available Not available Not available 05/13/2024 84422 9 RxNorm Not Available [facility] - production 03:41:50 8082 doxycycli ne Not available Not available Not available Not available 05/13/2024 3640 RxNorm Not Available [facility] - production 03:41:50 Medications Name Sig Start Date Stop [...] [degF] 132 mm[Hg] 74 mm[Hg] Not Available [employer] [facility] production 4 11:08:31 Social History None recorded. Functional Status None recorded. Mental Status None recorded. Family History Nothing Reported. Medical History No medical history recorded. Gynecological HistoryNo gynecological history recorded. Obstetrics History GPAL:G 0 P 0 0 0 0 Past Encounters Encounter ID Performer Location Encounter Start Date Encounter Closed Date Diagnosis/Indication Diagnosis SNOMED-CT Code Diagnosis ICD10 Code Diagnosis Note [id number] Damon Caldwell MD [facility] - [facility] [address] [place] [address] 03/01/2024 11:08:29 03/01/2024 19:07:06 Chill [id number] R68.83 Lactic acidosis 68743279 E87.20 Health Concerns Section Related Observation LastModified by Organization Detai ls LastModified Time None Recorded Concern Status LastModified by Organization Details LastModified Time None Recorded Advance Directives Directive None Recorded Payers Insurance Date Sequence Insurance Name Policy Number Policy Graham Covered Member ID Graham Member ID Guarantor Name 02/29/2024 1 [facility] - DOS ON OR AFTER 2022 - DUAL ELIGIBLE - CARE HOME OPTIONS AND ONE CARE (MEDICARE REPLACEMENT/ADV ANTAGE - HMO) December Daniel [id number] December Daniel Notes Date Note Type Note [...] with changes. She would feel better for [facility] to do a well check on her Sat 03/01 and assess her for dehydration. .................... .................... .................... .................... .................... .................... .................... . CRC Nurse Triage Notes (Dinorah Ramesh): Chief Complaints: Dehydration PMH: Hypertension Allergies: Bactrim, Doxycycline Other Allergies: codeine,PCN,oxycodon e,doxycycline,bactri m,amoxicillin,tramad ol,naproxen Comments: cRC RN DID NOT NEED FURTHER INFO Regulator Mechanic Organization Information for Lucrecia Navarrete Legal Name: [facility] Transportation Address: [address] [place] [address], [place] [address], Patrol Lady: Rinku Parra MD CLIA No.: [id number] Regulator Mechanic POC Test Results from Lucrecia Navarrete [facility] (11:25:37) pH: 7.457 pH units [...] .................... .................... .................... .................... .................... .................... . Regulator Mechanic Note From Lucrecia Navarrete: Pt reports feeling [...] epoc drawn as noted; lactate > 4. [facility] consulted, recommendation for not to be seen at ER which pt was agreeable to after speaking with [facility]. [facility] to [facility] by local EMS. Regulator Mechanic Allergies: Bactrim, Doxycycline .................... .................... .................... .................... .................... .................... .................... . Disposition: Fulfilled Damon Caldwell MD [address] [facility],[address], [place], [address], [facility] 03/01/2024 14:30:36 OBGyn Episode No OBEpisode recorded.
[2024-12-12 11:00] VITALS: BMI 25.6
--- NOTE | 2024-12-12 11:00 | HO.SPINEOV ---
Vital Signs 12/12/24 11:00 Height 5 ft Weight 131 lb BMI 25.6 Intake Visit Reasons: LBP Intake Note: Ms. Sanchez is here today c/o low back pain and difficulty walking. Administration Clerk Required: No Allergies No Known Allergies Allergy (Verified 10/21/24 11:17) Physical Exam Vital Signs: BMI result Body Mass Index 25.6 Assessment & Plan Assessment & Plan (1) Low back pain radiating to left leg: Code(s): M54.50 - Low back pain, unspecified; M79.605 - Pain in left leg Category: Medical Plan Dear Dr Navarro, Thank you for referring Mrs Sanchez to our office today. She is a 73-year-old female who has known history of scoliosis since net developer programmer. She has been dealing with back pain her whole life. She has had escalating pain through the years. She has done a number of different conservative treatments including chiropractic in quite some time ago she did physical therapy. Unfortunately it did not help much at all. For the most part she has just dealt with it. She uses a walker now to get around. She does have a little bit of pain radiating into her anterior groin but no real radicular pain or claudicating leg symptoms. She comes in today for evaluation of chronic back pain with an MRI showing scoliosis. PMH: History of DVTs, she is on Eliquis, history of allergies, repairs of tendons in her legs. Social hx: Quit smoking 6 years ago, does not drink use any recreational drugs Medications: Eliquis, probiotic, vitamins, Klonopin, loratadine Allergies: Please see the list Physical exam: Awake alert oriented no acute distress, she is able stand up out of a chair on her own, walk down the hallway, she has a scoliotic posture and slightly kyphotic flexed posture as well. She is full strength in bilateral lower extremities with intact reflexes. Imaging review: Lumbar MRI done at [facility] shows scoliotic curvature with the apex at L2-3 but extending from L1-L4. No significant central canal stenosis seen. No evidence of acute fracture. No evidence of herniated disc. Impression: 73-year-old female presents for evaluation of back pain and setting of scoliotic curvature what she has had since she was young girl. 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 There is no significant central canal stenosis but there is some [id number] foraminal stenosis. She has treated this with some basic conservative treatment measures in the past but nothing recent. I discussed with her at length the curvature and the standard treatments. Typically if this patient had exhausted all conservative measures and had decent enough bone quality and the pain was bad enough he might offer fusion, but right now she does not feel as though she needs surgery and the pain is not bad enough to consider undergoing. This is certainly reasonable. I might have some questions about her bone quality so we would want to get a CAT scan if she did come back later down the road, but for now she just wants to continue living with it, she has had it her whole life and this is certainly an acceptable option. We talked about the possibility of going to see pain management but she is not excited about getting needles in her back as she previously had what sounds like a durotomy from a CT myelogram and ended up needing a blood patch. This gives her a lot of anxiety thinking about having another needle in her back. Thank you for allowing us to care for your patient. The total time spent with this visit with this patient was 45 minutes reviewing history, physical exam, lumbar imaging review, and implementation of treatment plan or further diagnostic testing Lalo rBaga MD,PhD [facility] Coding Level of Care Code New Pt Level 4 (11300) Diagnoses Low back pain radiating to left leg M54.50; M79.605
== END 2024-12-12 12:08 | disposition home or self-care (01) ==
LOC: HO.HNS 10:11
PROVIDERS: Referring Provider Orthopaedic Surgery; Visit Provider Physician Assistant
DX: M54.50 Low back pain, unspecified (principal); M79.605 Pain in left leg
CPT/HCPCS: 99204

== ENCOUNTER → 2024-12-12 10:10 | Outpatient (BNVA) | payer OTHER, SELFPAY | PROVIDERS: Referring Provider Orthopaedic Surgery; Visit Provider Physician Assistant | DX: M54.50 Low back pain, unspecified (principal); M79.605 Pain in left leg | CPT/HCPCS: 99202 ==